=== PATIENT | female | born 1980 | race Caucasian/White ===

== ENCOUNTER 2018-01-18 17:16 | Emergency (ER) | payer MEDICAID, SELFPAY ==
[2018-01-18 17:17] VITALS: BP 170/110; PULSE 90; RESP 16; TEMP 36.1; O2SAT 96; BMI 29.6
[2018-01-18 18:00] LABS: Color, Urine Yellow (Yellow); Glucose, Dipstick Normal (Normal); Ketone-Dipstick Negative (Negative); Leukocyte Esterase-Dipstick 100 /ul (Negative); Nitrite-Dipstick Negative (Negative); Occult Blood-Urine 250 /ul (Negative); Protein-Dipstick 15 mg/dl (Negative); Urine Bilirubin Dipstick Negative (Negative); Urine Clarity Clear (Clear); Urine Urobilinogen 1 mg/dl (Normal); Urine pH 6.5 (5.0 - 8.0)
[2018-01-18 18:03] LABS: Internal QC Validated? YES +Cl - CLEAR BKGD; Pregnancy, Urine Negative Negative
--- NOTE | 2018-01-18 18:06 | ED.VISSUMM ---
- ER Visit Summary Date of Service: 01/18/18 Chief Complaint: Dysuria History of Present Illness: The patient is a 37 F presenting for evaluation secondary dysuria. Patient reports that since yesterday she has been having some issues with some suprapubic pain. She also endorses that she has had decreased appetite dizziness that she describes as a vertiginous type feeling fatigue. Patient denies that she has any sort of new vaginal discharge associated with this. Patient states that she did recently breakup with her boyfriend, and is worried that he may have given her something. She has no specific reason to suspect this other than she does not trust people. She denies any vaginal discharge or history of STI's. She denies any new sexual partners. She denies any visual changes numbness weakness or speech difficulty. Review of systems otherwise negative. Physical Examination: Vital signs are within normal limits, patient is afebrile. General: Patient is well-nourished well-developed and in no acute distress. Head: Normocephalic, atraumatic Eyes: Pupils equal round and reactive bilaterally, extra occular motion intact bialterally ENT: Moist mucous membranes Neck: Supple, no lymphadenopathy, no JVD, no meningismus CVS: Heart regular rate and rhythm, no murmurs, rubs or gallops, radial pulses 2+ bilaterally Resp: Respirations nondistressed, lung sounds clear bilaterally Abdomen: Soft, nontender, nondistended, no palpable masses, normal bowel sounds Back: Nontender Extremities: Nontender, atraumatic, active full range of motion, no peripheral edema Skin: warm, no rashes, no petechia Neuro: Alert and oriented x 4, CN 2-12 intact, no lateralizing neurological defecits, normal cerebellar testing Psyc: Normal affect Test Results: HCG was negative. Urinalysis shows evidence of rare bacteria and 5-10 reds Emergency Department Course and Treatment: Patient presented for evaluation secondary to dysuria. Patient's urinalysis shows may be a mild urinary tract infection, but given how symptomatic the patient is I will treat her with a short course of Macrobid. As far as the patient's dizziness is concerned this seems like peripheral vertigo patient will be treated with a course of meclizine she will follow-up with primary care. Disposition: Discharge Impression: 1. UTI 2. Peripheral vertigo 3. Hypertension This note was generated with [employer] dictation software. It may contain incorrect words, spelling, and punctuation that were not noted in review of the chart prior to signing ED Disposition - Plan for ED Patient: Disposition: Home or Assisted Living Chief Complaint: Cold Sx Diagnosis: UTI (urinary tract infection) Instructions: ED UTI Cystitis Female Prescriptions: Nitrofurantoin Macrocrystals [Macrobid] 100 mg PO Q12 #10 cap Meclizine HCl 25 mg PO TID #15 tab Referrals: Tari Bronson, PHONE MANAGER-C [Primary Care Provider] - 1 Week if not improving
[2018-01-18 18:09] LABS: White Blood Cells 0-5 SEEN /hpf (0-5)
[2018-01-18 18:11] LABS: Mucous, Urine 1+ /hpf (<or=2+); Red Blood Cells-Urine 5-10 SEEN /hpf (0-5); Squamous Epithelial Cells - UA 0-5 SEEN /hpf (5-10)
[2018-01-18 18:12] LABS: Bacteria RARE /hpf (None Seen)
[2018-01-18] MEDS: Nitrofurantoin Macrocrystals 100 MG Capsule PO (18:26)
[2018-01-18] MEDS: Meclizine HCl 25 MG Tablet PO (18:26)
== END 2018-01-18 18:28 | disposition home or self-care (01) ==
PROVIDERS: Emergency Provider Emergency Medicine; Family Provider Nurse Practitioner Family; PCP Nurse Practitioner Family
DX: N39.0 Urinary tract infection, site not specified (principal); H81.399 Other peripheral vertigo, unspecified ear; I10 Essential (primary) hypertension; E03.9 Hypothyroidism, unspecified; Z79.899 Other long term (current) drug therapy; Z72.0 Tobacco use
CPT/HCPCS: 81001; 81025; 99284

== ENCOUNTER 2018-03-21 15:55 | Emergency (ER) | payer MEDICAID, SELFPAY ==
[2018-03-21 15:55] VITALS: BP 164/106; PULSE 94; RESP 16; TEMP 36.7; O2SAT 100; BMI 28.2
--- NOTE | 2018-03-21 16:09 | ED.VISSUMM ---
- ER Visit Summary Date of Service: 03/21/18 Chief Complaint: Sore throat History of Present Illness: The patient is a 37 F who presents with a sore throat. Is been ongoing for 3 days. The pain in her throat is worse with swallowing. She has had a headache. She admits to chills but no fevers. She feels weak and tired. She has been clearing her throat a lot. She has been trying ibuprofen without any relief. Both of her kids were recently diagnosed with strep. Physical Examination: Vital signs are reviewed. HEENT exam shows tonsillar swelling with oropharyngeal erythema. I do not see any exudates. She has bilateral cervical lymphadenopathy. Heart is regular rate and rhythm. Lungs clear. Abdomen soft. Neurologic exam normal Test Results: None performed Emergency Department Course and Treatment: Patient will be treated for strep due to the sick contacts and the presence of tonsillar swelling and erythema. She will continue supportive care at home. Treatment Plan: [] Disposition: Discharge Impression: Pharyngitis This note was generated with [employer] dictation software. It may contain incorrect words, spelling, and punctuation that were not noted in review of the chart prior to signing ED Disposition - Plan for ED Patient: Chief Complaint: Sore Throat Referrals: Tari Bronson NP-C [Primary Care Provider] -
--- NOTE | 2018-03-21 16:11 | DCINST.ED_ITS ---
ED Disposition - Plan for ED Patient: Disposition: Home or Assisted Living Chief Complaint: Sore Throat Instructions: ED Strep Pharyngitis Conf Referrals: Tari Bronson, METAL CUT OFF SAW OPERATOR-C [Primary Care Provider] -
[2018-03-21] MEDS: Penicillin G Benzathine 1.2 MU/2 ML Syringe IM (16:16)
== END 2018-03-21 16:36 | disposition home or self-care (01) ==
LOC: ED 16:16
PROVIDERS: Emergency Provider Emergency Medicine; Family Provider Nurse Practitioner Family; PCP Nurse Practitioner Family
DX: J02.9 Acute pharyngitis, unspecified (principal); I10 Essential (primary) hypertension; Z72.0 Tobacco use
CPT/HCPCS: 96372; 99282

== ENCOUNTER 2018-03-26 17:54 | Emergency (ER) | payer SELFPAY ==
[2018-03-26 17:55] VITALS: BP 163/102; PULSE 113; RESP 14; TEMP 36.6; O2SAT 98; BMI 26.6
[2018-03-26] MEDS: 0.9% Normal Saline 1,000 ML 1000 ML IV (18:28)
[2018-03-26] MEDS: Ondansetron 4 MG/2 ML Vial IV (18:28)
[2018-03-26] MEDS: Dicyclomine 20 MG/2 ML Vial IM (18:28)
[2018-03-26 18:45] LABS: Absolute Lymphocyte Count 0.82 X10^3/ul (0.83-4.51); Absolute Neutrophil Count 3.2 X10^3/uL (2.0-7.7); Basophil# 0.01 X10^3/uL; Basophil% 0.2 % (0-1); Eosinophil# 0.04 X10^3/uL; Eosinophils% 0.9 % (0-5); Hematocrit 45.2 % (37-47); Lymphocyte # 0.82 X10^3/ul (4.0); Lymphocyte % 17.7 % (19-41); Mean Corp Hgb Conc 33.2 g/gl (32-36); Mean Corpuscular Hgb 29.9 pg (27.0-32.0); Mean Corpuscular Volume 90.2 fL (81-99); Mean Platelet Vol. 8.9 fl (6.2-12.0); Monocyte# 0.57 X10^3/uL; Monocyte% 12.3 % (0-10); Neutrophil # 3.18 X10^3/uL (2.7-7.7); Neutrophil % 68.7 % (47-70); POSITIVE COUNT NO; POSITIVE DIFFERENTIAL NO; POSITIVE MORPHOLOGY NO; Platelet Count 279 K/mm3 (150-450); RBC Distribution Width CV 12.9 % (11.6-14.6); RBC Distribution Width SD 42.4 fl (35.1-43.9); Red Blood Count 5.01 M/mm3 (4.2-5.4); White Blood Count 4.6 K/mm3 (4.4-11.0)
[2018-03-26 18:54] LABS: Anion Gap 8 (5-15); BUN 20 mg/dL (7-18); BUN/Creat Ratio 30.8 RATIO (10-20); Calcium,Total 8.6 mg/dL (8.5-10.1); Chloride 102 mmol/L (98-107); Creatinine, Serum 0.65 mg/dL (0.55-1.02); EST Glomerular Filtration Rate 108 mL/min (>60); Est Glom Filt Rate - Afr Amer 131 mL/min (>60); Estimated Creatinine Clearance 108.78 ml/min; Glucose 88 mg/dL (74-106); Potassium 3.5 mmol/L (3.5-5.1); Sodium Level 138 mmol/L (136-145)
--- NOTE | 2018-03-26 19:41 | ED.VISSUMM ---
- ER Visit Summary Date of Service: 03/26/18 Chief Complaint: [Abdominal pain and vomiting and diarrhea.] History of Present Illness: The patient is a 37 F [presents to the emergency department with multiple complaints. Patient was seen in the emergency department 3 days ago and diagnosed with strep throat clinically and was injected with Bicillin. Patient states that yesterday she started having nausea and vomiting which is currently now resolved. Patient still having watery stools and has had for 5 today. Patient also describes a patch on her left lateral thigh that is slightly tender and started a couple of days ago. Patient has had a fever at home up to 102. Patient states that her kids had vomiting and diarrhea 2 weeks ago. Patient states her throat feels significantly better. Her abdominal discomfort is diffuse and waxes and wanes in intensity.] Physical Examination: [HEENT-PERRLA, EOMI. Cranial nerves II through XII grossly intact. TMs clear. Mucous membranes moist. No adenopathy. Cardiovascular-regular rate and rhythm without murmur or ectopy Lungs-clear to auscultation, chest wall stable without crepitus or subcu emphysema Abdomen-normoactive bowel sounds, soft. Patient has some mild diffuse tenderness on palpation. There is no rebound, rigidity, or perineal signs. Skin exam-left lateral thigh there is a circular patch measuring approximately 2.5 cm in diameter with somewhat vesicular-like lesions within it. No evidence for cellulitis or abscess. Extremities-intact ?4, normal range of motion, normal pulses, atraumatic] Test Results: [CBC with differential is normal. Chemistries were normal.] Emergency Department Course and Treatment: [Patient was given a liter normal same fluid bolus as well as Zofran and Bentyl. Patient felt significantly improved after treatment.] Treatment Plan: [Patient will be given a prescription for Bentyl and Zofran. Patient advised to follow-up with her primary care physician within next 3-5 days. Patient also will be given a prescription for Famvir as I suspect she may be developing shingles to the left lateral thigh.] Disposition: [Discharged home in stable condition. Patient advised to return if increased vomiting, diarrhea, dehydration, worsening pain, or condition should worsen anyway.] Impression: [Viral gastroenteritis Dermatitis left thigh] This note was generated with [employer] software. It may contain incorrect words, spelling, and punctuation that were not noted in review of the chart prior to signing ED Disposition - Plan for ED Patient: Chief Complaint: Abd Pain Referrals: Tari Bronson, MEDICAL VIDEOGRAPHER-C [Primary Care Provider] -
--- NOTE | 2018-03-26 19:44 | ED.DEP ---
ED Disposition - Plan for ED Patient: Chief Complaint: Abd Pain Instructions: ED Gastroenteritis Viral, ED Shingles Prescriptions: Ondansetron [Zofran Odt] 4 mg PO Q8H PRN PRN #10 tab PRN Reason: Nausea Dicyclomine HCl [Bentyl] 20 mg PO TIDAC #20 cap Famciclovir [Famvir] 500 mg PO TID #15 tab Referrals: Tari Bronson, NUCLEAR WORKER TECHNICIAN-C [Primary Care Provider] -
== END 2018-03-26 20:16 | disposition home or self-care (01) ==
LOC: ED 18:34
PROVIDERS: Emergency Provider Emergency Medicine; Family Provider Nurse Practitioner Family; PCP Nurse Practitioner Family
DX: A08.4 Viral intestinal infection, unspecified (principal); L30.9 Dermatitis, unspecified; Z72.0 Tobacco use
CPT/HCPCS: 80048; 85025; 96361; 96372; 96374; 99283; A4216; J2405

== ENCOUNTER 2018-04-20 14:31 | Observation (INO) | payer SELFPAY ==
[2018-04-20] VITALS (9 sets, daily range): BP systolic 149–170; BP diastolic 91–108; PULSE 63–79; RESP 16–20; TEMP 36.3–36.8; O2SAT 97–99; BMI 32.5; BMI 32.6; BMI 32.1
--- NOTE | 2018-04-20 14:58 | EKG12_ITS ---
Test Reason : CP Blood Pressure : / mmHG Vent. Rate : 070 BPM Atrial Rate : 070 BPM P-R Int : 148 ms QRS Dur : 090 ms QT Int : 400 ms P-R-T Axes : 017 015 030 degrees QTc Int : 432 ms Normal sinus rhythm Normal ECG Confirmed by CHAKA MORAN, JACKIE ([id number]), movie editor ELIO QUINTERO ([id number]) on 04/23/2018 8:15:13 AM Referred By: OLENA/SERGE Confirmed By:JACKIE NULL MD
--- NOTE | 2018-04-20 14:58 | CT_ITS ---
STUDY: CT BRAIN WITHOUT CONTRAST REASON FOR EXAM: Female, 37 years old. Hypertension and numbness in the fingertips for 3 to 4 weeks RADIATION DOSAGE (If Supplied By Facility): CTDIvol = ( 44.99 ) mGy, DLP = ( 745.49 ) mGycm TECHNIQUE: Transaxial CT imaging of the brain was performed without administration of intravenous contrast material. Individualized dose optimization techniques were used for this CT. COMPARISON: None. FINDINGS: Normal soft tissue structures. Normal calvarium. Remote deformity of the right lamina papyracea. Normal size ventricles and extra-axial spaces for the patient's age. Normal white matter tracts of the cerebral hemispheres. Normal basal ganglia and thalami. Normal brainstem. Normal cerebellum. There is no intracranial hemorrhage. There are no findings of an acute ischemic infarction. Normal visualized paranasal sinuses. CT/Brain/Head without Contrast IMPRESSION: No evidence of infarct or hemorrhage. Electronically Signed: Federico Mccoy MD at 16:05 EST Tel , Service support ,
[2018-04-20] MEDS: Lisinopril 5 MG Tablet PO (15:30)
[2018-04-20 15:31] LABS: Absolute Lymphocyte Count 2.03 X10^3/ul (0.83-4.51); Absolute Neutrophil Count 4.5 X10^3/uL (2.0-7.7); Basophil# 0.04 X10^3/uL; Basophil% 0.6 % (0-1); Eosinophils% 2.8 % (0-5); Hematocrit 42.5 % (37-47); Hemoglobin 13.9 g/dl (12.0-15.0); Lymphocyte # 2.03 X10^3/ul (4.0); Lymphocyte % 28.1 % (19-41); Mean Corp Hgb Conc 32.7 g/gl (32-36); Mean Corpuscular Hgb 30.2 pg (27.0-32.0); Mean Corpuscular Volume 92.2 fL (81-99); Mean Platelet Vol. 9.2 fl (6.2-12.0); Monocyte# 0.45 X10^3/uL; Monocyte% 6.2 % (0-10); Neutrophil % 62.2 % (47-70); Platelet Count 298 K/mm3 (150-450); RBC Distribution Width CV 13.4 % (11.6-14.6); RBC Distribution Width SD 44.5 fl (35.1-43.9); Red Blood Count 4.61 M/mm3 (4.2-5.4); White Blood Count 7.2 K/mm3 (4.4-11.0)
[2018-04-20 15:34] LABS: POSITIVE COUNT NO; POSITIVE DIFFERENTIAL NO; POSITIVE MORPHOLOGY NO
[2018-04-20 15:45] LABS: Anion Gap 7 (5-15); BUN 20 mg/dL (7-18); BUN/Creat Ratio 30.9 RATIO (10-20); Calcium,Total 8.3 mg/dL (8.5-10.1); Chloride 107 mmol/L (98-107); Creatinine, Serum 0.65 mg/dL (0.55-1.02); EST Glomerular Filtration Rate 108 mL/min (>60); Est Glom Filt Rate - Afr Amer 131 mL/min (>60); Estimated Creatinine Clearance 108.78 ml/min; Glucose 66 mg/dL (74-106); Potassium 3.7 mmol/L (3.5-5.1); Sodium Level 143 mmol/L (136-145)
--- NOTE | 2018-04-20 15:48 | ED.DCSUM_ITS ---
- ER Visit Summary Date of Service: 04/20/18 Chief Complaint: Hypertension History of Present Illness: The patient is a 37 F presenting with hypertension. The patient states that she is supposed to be on antihypertensive medications. She has been off of them for the last 6 months. She states that in the last 3-4 weeks she has had numbness in her left hand. Today she had an onset of right hand numbness today. She reports that her BP read high today so she came in. She has had 3 weeks of intermittent headaches. She also endorses palpitations and nausea associated with this. Physical Examination: Vital signs are within normal limits, patient is afebrile. General: Patient is well-nourished well-developed and in no acute distress. Head: Normocephalic, atraumatic Eyes: Pupils equal round and reactive bilaterally, extra occular motion intact bialterally ENT: Moist mucous membranes Neck: Supple, no lymphadenopathy, no JVD, no meningismus CVS: Heart regular rate and rhythm, no murmurs, rubs or gallops, radial pulses 2+ bilaterally Resp: Respirations nondistressed, lung sounds clear bilaterally Abdomen: Soft, nontender, nondistended, no palpable masses, normal bowel sounds Back: Nontender Extremities: Nontender, atraumatic, active full range of motion, no peripheral edema Skin: warm, no rashes, no petechia Neuro: Alert and oriented x 4, CN 2-12 intact, dysesthesia of the left thigh and bilateral hands. No weakness Psyc: Normal affect Test Results: ekg shows sinus rhythm of 70, isoelectric st segments, normal twaves. CBC chemistry are unremarkable. Troponin found to be elevated to an indeterminate level 0.07. CT brain negative. Emergency Department Course and Treatment: Patient presented secondary to hypertension. Patient was having symptoms associated with this including numbness as well as nausea and palpitations and headaches. There was some concern for the possibility of hypertensive urgency or endorgan damage so workup was obtained. Workup ended up showing the patient to have an elevated troponin. Patient was given aspirin as well as lisinopril. Repeat blood pressure was in the 140s. I believe the patient requires admission at this time. I will discussed this with the hospitalist. Disposition: Admission Impression: 1. Hypertensive emergency 2. Elevated troponin 3. Lateral femoral cutaneous nerve syndrome This note was generated with [employer] software. It may contain incorrect words, spelling, and punctuation that were not noted in review of the chart prior to signing ED Disposition - Plan for ED Patient: Chief Complaint: Hypertension Referrals: Tari Bronson NP-C [Primary Care Provider] -
[2018-04-20 16:08] LABS: Pregnancy, Serum, hCG Quali. NEGATIVE Negative (0-9 Nonpreg)
[2018-04-20] MEDS: Aspirin 325 MG Tablet PO (16:27)
--- NOTE | 2018-04-20 16:40 | PCM.HP.STD ---
Problem List (1) Hypertensive emergency Status: Acute (2) Hypertension Status: Chronic (3) Tobacco abuse Status: Chronic (4) Hypothyroidism Status: Chronic History of Present Illness Date of Admission: 04/20/18 Chief Complaint: Elevated blood pressure, hand numbness and tingling, headache. The patient is a 37 year old F with past medical history as mentioned above presented to the emergency room because of uncontrolled hypertension, headache and numbness and tingling of the both hands. This patient had a history of hypertension and she is supposed to be on lisinopril but she has been noncompliant and not taking her medication for the last 5-6 months. She mentioned that she has been having issues with elevated blood pressure at home. Over the last several days, she did not feel well, started having left hand numbness and tingling in the last 3-4 weeks, intermittent, associated with intermittent throbbing headache, palpitation and today, she started having numbness on the right hand as well. She checked her blood pressure today and her machine just read high and she decided to come to the hospital. She reported occasional chest discomfort and shortness of breath. She denies syncope or presyncope. She denied focal arm or leg weakness. She denied slurred speech but she reported occasional blurry vision. In the emergency department, she was afebrile, heart rate was stable, blood pressure was 170/108 and pulse ox was normal on room air. Her routine blood work was unremarkable. EKG revealed normal sinus rhythm, normal QRS, normal QTC and no evidence of acute ischemic changes. Troponin was indeterminate at 0.071. Serum test was negative. CT scan brain without contrast showed no acute findings. She is being admitted for acute hypertensive emergency based on elevated blood pressure and evidence of endorgan damage which is the slightly elevated troponin. Past Medical History Past Medical History (Chronic Problems): Chronic Problems Hypertension (Chronic) Tobacco abuse (Chronic) Hypothyroidism (Chronic) Allergies codeine Adverse Reaction (Verified 04/20/18 14:56) Other lorazepam [From Ativan] Adverse Reaction (Verified 04/20/18 14:56) Other Home Medications: Ambulatory Orders Medication Instructions Recorded Ibuprofen 800 mg PO PRN PRN 04/20/18 Surgical History: cholecystectomy, - - Cervical discectomy, section. 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 Denies: Double vision, Drainage, Redness HEENT: Reports: Head Aches. Denies: Difficulty Hearing, Ear Pain, Eye Pain, Nasal bleeding, Nasal Congestion, Sore Throat Cardiovascular: Reports: Light Headedness, Palpitations. Denies: Chest Pain, Chest Pressure, Chest Tightness, Orthopnea, Syncope Respiratory: Reports: Shortness of Breath. Denies: Cough, Pleuritic Pain, Sputum production, Wheezing Gastrointestinal: Denies: Abdominal Pain, Constipation, Diarrhea, Nausea, Vomiting Genitourinary: Denies: Dysuria, Frequency, Hematuria Musculoskeletal: Denies: Arm Pain, Back Pain, Foot Pain Skin: Denies: Dryness, Rash Neurological: Reports: Headaches, Numbness, Tingling. Denies: Balance problems, Double vision, Change in Speech, Slurred speech, Focal weakness, Incoordination Psychiatric: Reports: Anxiety. Denies: Depression Endocrine: Denies: Change in Body Habitus, Polydipsia VTE Information - Inpt Only VTE Present on Admission: No VTE Mechan Device Prophylaxis: None VTE Pharm Prophylaxis ordered?: No Patient Problems: Active and Suspected Problems Hypertensive emergency (Acute) - Physical Exam General: Alert, Oriented x3, Cooperative, No apparent distress HEENT: Atraumatic, PERRLA, EOMI, Normocephalic Oral: Moist Mucosa, No Gingival or Mucosal Lesions/ Ulcerations Neck: Supple, No JVD, Negative Carotid Bruits, Trachea Midline, Thyroid Normal Size and Texture Lungs: Clear to auscultation, Normal air movement, No rhonchi, No wheeze, No rales Cardiovascular: Regular rate, Regular Rhythm, Normal S1, Normal S2, PMI Normal Abdomen: Bowel Sounds Present, Soft, Non Tender, Non-Distended, No Hepato-splenomegaly, Obese Extremities: No clubbing, No cyanosis, No edema Skin: No rashes, No breakdown Lymphatic: No Cervical, Supraclavicular, or Inguinal Adenopathy Neurological: Cranial nerves II-XII grossly intact, Motor Exam 5/5 strength throughout Psych/Mental Status: Normal Affect, Appropriate, Alert and oriented to time, place, person, mood and affect Vital Signs Temp Pulse Resp BP 97.3 F L 77 20 H 170/108 H 04/20/18 14:32 04/20/18 14:32 04/20/18 16:39 04/20/18 14:32 Weight: 201 lb 11.567 oz Body Mass Index (BMI) 32.5 Finger Stick Blood Glucose 107 Laboratory Tests Past 24 Hrs 04/20/18 04/20/18 04/20/18 15:10 15:10 15:10 WBC 7.2 RBC 4.61 Hgb 13.9 Hct 42.5 MCV 92.2 MCH 30.2 MCHC 32.7 RDW 13.4 RDW Differential 44.5 H Plt Count 298 MPV 9.2 Immature Gran % (Auto) 0.100 Neut % (Auto) 62.2 Lymph % (Auto) 28.1 [place] % (Auto) 6.2 Eos % (Auto) 2.8 Baso % (Auto) 0.6 Absolute Neuts (auto) 4.5 Absolute Lymphs (auto) 2.03 Total Counted Not Reportable Sodium 143 Potassium 3.7 Chloride 107 Carbon Dioxide 29.0 Anion Gap 7 BUN 20 H Creatinine 0.65 Estim Creat Clear Calc 108.78 Est GFR (MDRD) Af Amer 131 Est GFR (MDRD) Non-Af 108 BUN/Creatinine Ratio 30.9 H Glucose 66 L Calcium 8.3 L Troponin I 0.071 H Serum , Qual NEGATIVE Clinical Impression(s) from Imaging Studies Brain CT 04/20/18 14:58 IMPRESSION: No evidence of infarct or hemorrhage. Electronically Signed: Federico Mccoy MD at 16:05 EST Tel , Service support , Assessment/Plan All Active Problems Hypertensive emergency (Acute) This is a 37 years old female patient presented to the ED because of multiple complaints including left hand numbness followed by right hand numbness, headache, intermittent palpitation, intermittent chest discomfort and shortness of breath and she was found to have elevated blood pressure with indeterminate troponin and she is being admitted for evaluation and treatment. #1 hypertensive emergency: This is based on minimally elevated troponin although her systolic blood pressure was not more than 180. Patient has been having issues with uncontrolled hypertension, noncompliant for the last 6 months as she supposed to take lisinopril. Her EKG revealed sinus rhythm without evidence of acute ischemic changes. Chest x-ray showed no acute findings. She has no focal deficit on physical exam. CT scan brain showed no acute findings. Plan: Admit to PCU for observation, cardiac monitoring, serial cardiac enzymes, 2D echocardiogram, start baby aspirin, fasting lipid profile, repeat CBC and CMP tomorrow morning, start HCTZ/lisinopril daily, IV hydralazine as needed. #2 uncontrolled hypertension: Patient has not been taking her medication for the last 6 months. She is supposed to be on lisinopril. Plan as above. #3 hypothyroidism: This is listed on her chart, patient is not taking any medication for it. Plan: We will check TSH. #4 tobacco abuse: NicoDerm patch. #5 DVT prophylaxis: Low-risk patient, no prophylaxis indicated, ambulate. This note was generated with [employer] dictation software. It may contain incorrect words, spelling, and punctuation that were not noted in checking the note before signing. Code Visit OBSV E&M: 20938 Initial observation care L3
--- NOTE | 2018-04-20 16:46 | HP.PCM_ITS ---
Problem List (1) Hypertensive emergency Status: Acute (2) Hypertension Status: Chronic (3) Tobacco abuse Status: Chronic (4) Hypothyroidism Status: Chronic History of Present Illness Date of Admission: 04/20/18 Chief Complaint: Elevated blood pressure, hand numbness and tingling, headache. The patient is a 37 year old F with past medical history as mentioned above presented to the emergency room because of uncontrolled hypertension, headache and numbness and tingling of the both hands. This patient had a history of hypertension and she is supposed to be on lisinopril but she has been noncompliant and not taking her medication for the last 5-6 months. She mentioned that she has been having issues with elevated blood pressure at home. Over the last several days, she did not feel well, started having left hand numbness and tingling in the last 3-4 weeks, intermittent, associated with intermittent throbbing headache, palpitation and today, she started having numbness on the right hand as well. She checked her blood pressure today and her machine just read high and she decided to come to the hospital. She report ed occasional chest discomfort and shortness of breath. She denies syncope or presyncope. She denied focal arm or leg weakness. She denied slurred speech but she reported occasional blurry vision. In the emergency department, she was afebrile, heart rate was stable, blood pressure was 170/108 and pulse ox was normal on room air. Her routine blood work was unremarkable. EKG revealed normal sinus rhythm, normal QRS, normal QTC and no evidence of acute ischemic changes. Troponin was indeterminate at 0.071. Serum test was negative. CT scan brain without contrast showed no acute findings. She is being admitted for acute hypertensive emergency based on elevated blood pressure and evidence of endorgan damage which is the slightly elevated troponin. Past Medical History Past Medical History (Chronic Problems): Chronic Problems Hypertension (Chronic) Tobacco abuse (Chronic) Hypothyroidism (Chronic) Allergies codeine Adverse Reaction (Verified 04/20/18 14:56) Other lorazepam [From Ativan] Adverse Reaction (Verified 04/20/18 14:56) Other Home Medications: Ambulatory Orders Medication Instructions Recorded Ibuprofen 800 mg PO PRN PRN 04/20/18 Surgical History: cholecystectomy, - - Cervical discectomy, section. 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 Denies: Double vision, Drainage, Redness HEENT: Reports: Head Aches. Denies: Difficulty Hearing, Ear Pain, Eye Pain, Nasal bleeding, Nasal Congestion, Sore Throat Cardiovascular: Reports: Light Headedness, Palpitations. Denies: Chest Pain, Chest Pressure, Chest Tightness, Orthopnea, Syncope Respiratory: Reports: Shortness of Breath. Denies: Cough, Pleuritic Pain, Sputum production, Wheezing Gastrointestinal: Denies: Abdominal Pain, Constipation, Diarrhea, Nausea, Vomiting Genitourinary: Denies: Dysuria, Frequency, Hematuria Musculoskeletal: Denies: Arm Pain, Back Pain, Foot Pain Skin: Denies: Dryness, Rash Neurological: Reports: Headaches, Numbness, Tingling. Denies: Balance problems, Double vision, Change in Speech, Slurred speech, Focal weakness, Incoordination Psychiatric: Reports: Anxiety. Denies: Depression Endocrine: Denies: Change in Body Habitus, Polydipsia VTE Information - Inpt Only VTE Present on Admission: No VTE Mechan Device Prophylaxis: None VTE Pharm Prophylaxis ordered?: No Patient Problems: Active and Suspected Problems Hypertensive emergency (Acute) - Physical Exam General: Alert, Oriented x3, Cooperative, No apparent distress HEENT: Atraumatic, PERRLA, EOMI, Normocephalic Oral: Moist Mucosa, No Gingival or Mucosal Lesions/ Ulcerations Neck: Supple, No JVD, Negative Carotid Bruits, Trachea Midline, Thyroid Normal Size and Texture Lungs: Clear to auscultation, Normal air movement, No rhonchi, No wheeze, No rales Cardiovascular: Regular rate, Regular Rhythm, Normal S1, Normal S2, PMI Normal Abdomen: Bowel Sounds Present, Soft, Non Tender, Non-Distended, No Hepato- splenomegaly, Obese Extremities: No clubbing, No cyanosis, No edema Skin: No rashes, No breakdown Lymphatic: No Cervical, Supraclavicular, or Inguinal Adenopathy Neurological: Cranial nerves II-XII grossly intact, Motor Exam 5/5 strength throughout Psych/Mental Status: Normal Affect, Appropriate, Alert and oriented to time, place, person, mood and affect Vital Signs Temp Pulse Resp BP 97.3 F L 77 20 H 170/108 H 04/20/18 14:32 04/20/18 14:32 04/20/18 16:39 04/20/18 14:32 Weight: 201 lb 11.567 oz Body Mass Index (BMI) 32.5 Finger Stick Blood Glucose 107 Laboratory Tests Past 24 Hrs 04/20/18 04/20/18 04/20/18 15:10 15:10 15:10 WBC 7.2 RBC 4.61 Hgb 13.9 Hct 42.5 MCV 92.2 MCH 30.2 MCHC 32.7 RDW 13.4 RDW Differential 44.5 H Plt Count 298 MPV 9.2 Immature Gran % (Auto) 0.100 Neut % (Auto) 62.2 Lymph % (Auto) 28.1 Mineral % (Auto) 6.2 Eos % (Auto) 2.8 Baso % (Auto) 0.6 Absolute Neuts (auto) 4.5 Absolute Lymphs (auto) 2.03 Total Counted Not Reportable Sodium 143 Potassium 3.7 Chloride 107 Carbon Dioxide 29.0 Anion Gap 7 BUN 20 H Creatinine 0.65 Estim Creat Clear Calc 108.78 Est GFR (MDRD) Af Amer 131 Est GFR (MDRD) Non-Af 108 BUN/Creatinine Ratio 30.9 H Glucose 66 L Calcium 8.3 L Troponin I 0.071 H Serum , Qual NEGATIVE Clinical Impression(s) from Imaging Studies Brain CT 04/20/18 14:58 IMPRESSION: No evidence of infarct or hemorrhage. Electronically Signed: Federico Mccoy MD at 16:05 EST Tel , Service support , Assessment/Plan All Active Problems Hypertensive emergency (Acute) This is a 37 years old female patient presented to the ED because of multiple complaints including left hand numbness followed by right hand numbness, headache, intermittent palpitation, intermittent chest discomfort and shortness of breath and she was found to have elevated blood pressure with indeterminate troponin and she is being admitted for evaluation and treatment. #1 hypertensive emergency: This is based on minimally elevated troponin although her systolic blood pressure was not more than 180. Patient has been having issues with uncontrolled hypertension, noncompliant for the last 6 months as she supposed to take lisinopril. Her EKG revealed sinus rhythm without evidence of acute ischemic changes. Chest x-ray showed no acute findings. She has no focal deficit on physical exam. CT scan brain showed no acute findings. Plan: Admit to PCU for observation, cardiac monitoring, serial cardiac enzymes, 2D echocardiogram, start baby aspirin, fasting lipid profile, repeat CBC and CMP tomorrow morning, start HCTZ/lisinopril daily, IV hydralazine as needed. #2 uncontrolled hypertension: Patient has not been taking her medication for the last 6 months. She is supposed to be on lisinopril. Plan as above. #3 hypothyroidism: This is listed on her chart, patient is not taking any me dication for it. Plan: We will check TSH. #4 tobacco abuse: NicoDerm patch. #5 DVT prophylaxis: Low-risk patient, no prophylaxis indicated, ambulate. This note was generated with [employer] dictation software. It may contain incorrect words, spelling, and punctuation that were not noted in checking the note before signing. Code Visit OBSV E&M: 88869 Initial observation care L3
[2018-04-20] MEDS: 0.9% Normal Saline 1,000 ML 75 ML IV (18:05)
[2018-04-20] MEDS: 0.9% NaCl Peripheral Flush Adult/Peds IV (18:05)
[2018-04-20 18:51] LABS: Thyroid Stim Hormone (TSH) 3.35 uIU/mL (0.358-3.74)
[2018-04-21] VITALS (8 sets, daily range): BP systolic 136–160; BP diastolic 87–114; PULSE 62–84; RESP 14–16; TEMP 36.3–36.8; O2SAT 96–99
[2018-04-21 05:54] LABS: Hematocrit 38.9 % (37-47); Hemoglobin 12.9 g/dl (12.0-15.0); Mean Corp Hgb Conc 33.2 g/gl (32-36); Mean Corpuscular Hgb 30.4 pg (27.0-32.0); Mean Corpuscular Volume 91.7 fL (81-99); Mean Platelet Vol. 9.2 fl (6.2-12.0); Platelet Count 286 K/mm3 (150-450); RBC Distribution Width SD 42.3 fl (35.1-43.9); Red Blood Count 4.24 M/mm3 (4.2-5.4); Scan Indicated on CBC? Y/N NO; White Blood Count 6.5 K/mm3 (4.4-11.0)
--- NOTE | 2018-04-21 05:55 | EKG12_ITS ---
Test Reason : AM Blood Pressure : / mmHG Vent. Rate : 069 BPM Atrial Rate : 069 BPM P-R Int : 158 ms QRS Dur : 082 ms QT Int : 424 ms P-R-T Axes : 027 044 050 degrees QTc Int : 454 ms Normal sinus rhythm Septal infarct , age undetermined Abnormal ECG Confirmed by CHAKA MORAN, JACKIE ([id number]), material expeditor ELIO QUINTERO ([id number]) on 04/23/2018 8:30:02 AM Referred By: Confirmed By:JACKIE NULL MD
[2018-04-21 06:15] LABS: AST(SGOT) 14 U/L (15-37); Alanine Aminotransfer ALT/SGPT 16 U/L (13-56); Albumin, Serum 2.9 g/dL (3.2-5.0); Alkaline Phosphatase 45 U/L (45-117); Anion Gap 7 (5-15); BUN 18 mg/dL (7-18); BUN/Creat Ratio 36.4 RATIO (10-20); Chloride 107 mmol/L (98-107); Cholesterol 124 mg/dL (200); Creatinine, Serum 0.49 mg/dL (0.55-1.02); EST Glomerular Filtration Rate 148 mL/min (>60); Est Glom Filt Rate - Afr Amer 179 mL/min (>60); Glucose 87 mg/dL (74-106); High Density Lipoprotein 42 mg/dL; Potassium 3.4 mmol/L (3.5-5.1); Protein, Total 5.9 g/dL (6.4-8.2); Sodium Level 143 mmol/L (136-145); Triglycerides 110 mg/dL; Very Low Density Lipoprotein 22 mg/dL (5-40)
--- NOTE | 2018-04-21 08:27 | STE_ITS ---
Reason For Study: HTN, CHEST PAIN Stress Results Protocol: Samir Protocol Maximum Predicted HR: 181 bpm Target HR: 154 bpm % Maximum Predicted HR: 94 % DurationHeart Rate Stage (mm:ss) (bpm) BP Comment BASELINE 74 140/106 STAGE 1 3:00 114 164/100SLIGHTLY LIGHTHEADED STAGE 2 3:00 136 190/102 STAGE 3 2:10 171 230/112INCREASED SOB, INCREASED LIGHTHEADED RECOVERY 83 152/104 Stress Duration: 8:10 mm:ss Maximum Stress HR: 171 bpm METS: 9 Baseline Echocardiogram Findings Stress Echo Wall motion Data Resting WM Intermediate WM Stress WM Resting Wall Motion Wall Motion Stress All segments Normal. All segments Hyperkinetic. Ejection Fraction 55 %. Ejection Fraction 70 %. Stress Results Heart rate response: appropriate Blood pressure response: resting hypertension - exaggerated response Arrhythmias: none Functional capacity: good Stopped secondary to: dyspnea. EKG Data Baseline EKG: Normal sinus rhythm. Peak exercise ECG: No obvious ECG changes. Symptoms with Stress No complaint of chest discomfort during exercise or recovery. Interpretation Summary Negative (adequate (stress echocardiogram Negative (OTC) ECG exercise tolerance test Comment: Blood pressure response: Resting hypertension-exaggerated response Ordering Physician: Gerald Cano Performed By: Riky Kelly RCS
[2018-04-21 08:45] LABS: Magnesium 1.9 mg/dL (1.6-2.6)
[2018-04-21] MEDS: Aspirin 81 MG TAB.CHEW PO (09:53)
[2018-04-21] MEDS: Lisinopril 20 MG Tablet PO (09:54)
[2018-04-21] MEDS: hydroCHLOROthiazide 12.5mg 12.5 MG PO (09:54)
--- NOTE | 2018-04-21 11:34 | PCM.DC ---
- Discharge Diagnoses Current Active Problems: Current Active and Chronic Problems Hypertensive emergency (Acute) Hypertension (Chronic) You will use the following diet at home:: Cardiac Your food should be the consistency of: Regular Your liquids should be the consistency of: Regular/Thin Discharge Activity: Return to Normal Activity Allergies/Adverse Reactions: Allergies codeine Adverse Reaction (Verified 04/20/18 14:56) Other lorazepam [From Ativan] Adverse Reaction (Verified 04/20/18 14:56) Other Medications to take at Discharge Aspirin [Aspirin, Baby] 81 mg PO DAILY@0800 tab.chew 04/21/18 Hydrochlorothiazide [Hctz] 25 mg PO DAILY #30 tab 04/21/18 Lisinopril [Zestril] 20 mg PO DAILY #30 tab 04/21/18 The following prescriptions were given: Hydrochlorothiazide [Hctz] 25 mg PO DAILY #30 tab Lisinopril [Zestril] 20 mg PO DAILY #30 tab Primary Care Physician: Tari Bronson NP-C [Primary Care Provider] - Please follow up with your Primary Care Physician in: 1-2 weeks Test Results: Test results from this visit will be discussed in further detail at your follow-up appointment, if applicable. Proposed Discharge Date: 04/21/18
--- NOTE | 2018-04-21 11:39 | DCINST_ITS ---
- Discharge Diagnoses Current Active Problems: Current Active and Chronic Problems Hypertensive emergency (Acute) Hypertension (Chronic) You will use the following diet at home:: Cardiac Your food should be the consistency of: Regular Your liquids should be the consistency of: Regular/Thin Discharge Activity: Return to Normal Activity Allergies/Adverse Reactions: Allergies codeine Adverse Reaction (Verified 04/20/18 14:56) Other lorazepam [From Ativan] Adverse Reaction (Verified 04/20/18 14:56) Other Medications to take at Discharge Aspirin [Aspirin, Baby] 81 mg PO DAILY@0800 tab.chew 04/21/18 Hydrochlorothiazide [Hctz] 25 mg PO DAILY #30 tab 04/21/18 Lisinopril [Zestril] 20 mg PO DAILY #30 tab 04/21/18 The following prescriptions were given: Hydrochlorothiazide [Hctz] 25 mg PO DAILY #30 tab Lisinopril [Zestril] 20 mg PO DAILY #30 tab Primary Care Physician: Tari Bronson NP-C [Primary Care Provider] - Please follow up with your Primary Care Physician in: 1-2 weeks Test Results: Test results from this visit will be discussed in further detail at your follow- up appointment, if applicable. Proposed Discharge Date: 04/21/18
--- NOTE | 2018-04-21 14:35 | PCM.DC.SUM ---
Discharge Date and Diagnosis Date of Admission: 04/20/18 Date of Discharge: 04/21/18 - Primary Discharge Diagnosis HTN emergency Indeterminate Troponin HTN Tobacco abuse Hypothyroidism Cervical disc disease Obesity - Secondary Discharge Diagnosis Chronic Problems Hypertension (Chronic) Tobacco abuse (Chronic) Hypothyroidism (Chronic) Hospital Course and Treatment Imaging Results: 04/21/18 08:27 Stress Test Echo w/o Contrast [ECHO] Routine Interpretation Summary Negative (adequate (stress echocardiogram Negative (OTC) ECG exercise tolerance test Comment: Blood pressure response: Resting hypertension-exaggerated response CT/Brain/Head without Contrast IMPRESSION: No evidence of infarct or hemorrhage. Operations: None Procedures: 2-D Echocardiogram, Stress test Summary of Care Provided: Hospital course: The patient is a 37 year old F with a past medical history of hypertension, hypothyroidism, obesity, tobacco abuse, cervical disc disease, who presented to the emergency room with chief complaints of paresthesias in her hands, elevated blood pressure, and headache. She had a history of hypertension and was supposed to be on lisinopril and hydrochlorothiazide but had discontinued it about 6 months prior. When I asked her why she said she just did not feel like it refilling her prescriptions. In the emergency room she was found to have significantly elevated blood pressure at 170/108 with a indeterminate troponin demonstrating hypertensive emergency. A CT of the brain was checked and was negative. Serum was negative. Her HCTZ and lisinopril were restarted. She was admitted to the PCU and placed on telemetry. Troponin was cycled and remained flat. EKG was negative. The following morning she underwent a stress echo which was negative. Results as above. TSH was checked and was negative. Blood pressures remained elevated and her hydrochlorothiazide was increased. Her headache had resolved. She was felt to be stable for discharge and was discharged home in stable condition. She will need follow-up with her PCP in 1-2 weeks. This patient was seen by Gerald Cano PA-C under the supervision of Doctor Jarrod. [] - Physical Exam General: Alert, Oriented x3, Cooperative HEENT: Atraumatic, PERRLA, EOMI, Normocephalic Neck: Supple, No JVD, Negative Carotid Bruits Lungs: Clear to auscultation, Normal air movement Cardiovascular: Regular rate, No murmurs Abdomen: Bowel Sounds Present, Soft, Non Tender, Obese Extremities: No edema, Capillary Refill Less than 3 Seconds Skin: No rashes, No breakdown Musculoskeletal: No Tenderness to Palpation of Joints or Extremities Neurological: Cranial nerves II-XII grossly intact Psych/Mental Status: Normal Affect, Appropriate, Alert and oriented to time, place, person, mood and affect Vital Signs Temp Pulse Resp BP Pulse Ox 97.9 F 62 14 149/93 H 96 04/21/18 13:23 04/21/18 13:23 04/21/18 13:23 04/21/18 13:23 04/21/18 13:23 Oxygen Delivery Method Room Air Weight: 199 lb 4.766 oz Body Mass Index (BMI) 32.1 Finger Stick Blood Glucose 107 Intake and Output for Last 24 Hours 04/19/18 04/20/18 04/21/18 23:59 23:59 23:59 Intake Total 912 / 912 1019 / 1019 Balance 912 / 912 1019 / 1019 Laboratory Tests Past 24 Hrs 04/20/18 04/20/18 04/20/18 15:10 15:10 15:10 WBC 7.2 RBC 4.61 Hgb 13.9 Hct 42.5 MCV 92.2 MCH 30.2 MCHC 32.7 RDW 13.4 RDW Differential 44.5 H Plt Count 298 MPV 9.2 Immature Gran % (Auto) 0.100 Neut % (Auto) 62.2 Lymph % (Auto) 28.1 Hendricks % (Auto) 6.2 Eos % (Auto) 2.8 Baso % (Auto) 0.6 Absolute Neuts (auto) 4.5 Absolute Lymphs (auto) 2.03 Total Counted Not Reportable Sodium 143 Potassium 3.7 Chloride 107 Carbon Dioxide 29.0 Anion Gap 7 BUN 20 H Creatinine 0.65 Estim Creat Clear Calc 108.78 Est GFR (MDRD) Af Amer 131 Est GFR (MDRD) Non-Af 108 BUN/Creatinine Ratio 30.9 H Glucose 66 L Calcium 8.3 L Magnesium Total Bilirubin AST ALT Alkaline Phosphatase Troponin I 0.071 H Total Protein Albumin Globulin Albumin/Globulin Ratio Triglycerides Cholesterol LDL Cholesterol VLDL Cholesterol HDL Cholesterol TSH Serum , Qual NEGATIVE 04/20/18 04/20/18 04/20/18 15:10 18:35 20:45 WBC RBC Hgb Hct MCV MCH MCHC RDW RDW Differential Plt Count MPV Immature Gran % (Auto) Neut % (Auto) Lymph % (Auto) Hendricks % (Auto) Eos % (Auto) Baso % (Auto) Absolute Neuts (auto) Absolute Lymphs (auto) Total Counted Sodium Potassium Chloride Carbon Dioxide Anion Gap BUN Creatinine Estim Creat Clear Calc Est GFR (MDRD) Af Amer Est GFR (MDRD) Non-Af BUN/Creatinine Ratio Glucose Calcium Magnesium Total Bilirubin AST ALT Alkaline Phosphatase Troponin I 0.061 H 0.065 H Total Protein Albumin Globulin Albumin/Globulin Ratio Triglycerides Cholesterol LDL Cholesterol VLDL Cholesterol HDL Cholesterol TSH 3.35 Serum , Qual 04/21/18 04/21/18 04/21/18 05:25 05:25 05:25 WBC 6.5 RBC 4.24 Hgb 12.9 Hct 38.9 MCV 91.7 MCH 30.4 MCHC 33.2 RDW 13.0 RDW Differential 42.3 Plt Count 286 MPV 9.2 Immature Gran % (Auto) Neut % (Auto) Lymph % (Auto) Hendricks % (Auto) Eos % (Auto) Baso % (Auto) Absolute Neuts (auto) Absolute Lymphs (auto) Total Counted Sodium 143 Potassium 3.4 L Chloride 107 Carbon Dioxide 29.0 Anion Gap 7 BUN 18 Creatinine 0.49 L Estim Creat Clear Calc 144.30 Est GFR (MDRD) Af Amer 179 Est GFR (MDRD) Non-Af 148 BUN/Creatinine Ratio 36.4 H Glucose 87 Calcium 8.0 L Magnesium 1.9 Total Bilirubin 0.60 AST 14 L ALT 16 Alkaline Phosphatase 45 Troponin I Total Protein 5.9 L Albumin 2.9 L Globulin 3.0 Albumin/Globulin Ratio 1.0 Triglycerides 110 Cholesterol 124 LDL Cholesterol 60 VLDL Cholesterol 22 HDL Cholesterol 42 TSH Serum , Qual Discharge Diet: Low fat/ Low Cholesterol, 2000 mg Sodium Diet Discharge Activity: Return to Normal Activity Home Medications: Medications to take at Discharge Aspirin [Aspirin, Baby] 81 mg PO DAILY@0800 tab.chew 04/21/18 Hydrochlorothiazide [Hctz] 25 mg PO DAILY #30 tab 04/21/18 Lisinopril [Zestril] 20 mg PO DAILY #30 tab 04/21/18 Following Prescrptions Were Given to Patient: Hydrochlorothiazide [Hctz] 25 mg PO DAILY #30 tab Lisinopril [Zestril] 20 mg PO DAILY #30 tab Primary Care Physician: Tari Bronson NP-C [Primary Care Provider] - Please follow up with your Primary Care Physician in: 1-2 weeks Disposition: Home Minutes spent on discharge:: 35 Patient Condition:: Stable Medical Necessity - Tobacco Use Smoking Status: Current every day smoker Tobacco Use: Cigarettes Meaningful Use Info Meaningful Use Diagnoses (Choose all that apply): None applicable
== END 2018-04-21 14:00 | disposition home or self-care (01) ==
LOC: ED 15:05 → PCU 16:29
PROVIDERS: Physician Assistant; Admitting Provider Hospitalist; Emergency Provider Emergency Medicine; Family Provider Nurse Practitioner Family; PCP Nurse Practitioner Family; Visit Provider Family Medicine
DX: I16.1 Hypertensive emergency (principal); I10 Essential (primary) hypertension; M50.10 Cervical disc disorder with radiculopathy, unspecified cervical region; E03.9 Hypothyroidism, unspecified; Z91.14 Patient's other noncompliance with medication regimen; F17.210 Nicotine dependence, cigarettes, uncomplicated; E66.9 Obesity, unspecified; Z68.32 Body mass index [BMI] 32.0-32.9, adult; Z71.3 Dietary counseling and surveillance; R42 Dizziness and giddiness; R07.9 Chest pain, unspecified
CPT/HCPCS: 36415; 70450; 80048; 80053; 80061; 83735; 84443; 84484; 84703; 85025; 85027; 93005; 93017; 93350; 96360; 96361; 97802; 99218; 99283; 99406; J7030; Q9957; A4216; G0378

== ENCOUNTER 2018-06-22 19:39 | Emergency (ER) | payer SELFPAY ==
[2018-06-22 19:39] VITALS: BP 158/117; PULSE 94; RESP 16; TEMP 37.1; O2SAT 96; BMI 30.8; BMI 32.5
--- NOTE | 2018-06-22 20:06 | ED.DCSUM_ITS ---
- ER Visit Summary Date of Service: 06/22/18 Chief Complaint: Nosebleed History of Present Illness: The patient is a 37 F presents to the emergency department intermittent nosebleeds. Patient states started about 3 days ago. She had about 10 days of upper respiratory illness. She had nasal congestion, sinus fullness, mild headache. She states that it started bleeding spontaneously. She states she was able to get to stop that and started again today. She has not on anticoagulants. She denies any other symptoms. Physical Examination: Vital signs reviewed General: Well-nourished, well-developed Head: Normocephalic, atraumatic Eyes: Pupils equal and reactive, extraocular muscles intact ENT: Patient does have swollen turbinates. There is some mild bleeding within the right naris. There is no visible vessel. There is no posterior bleed. Neck, supple, no lymphadenopathy Heart: Regular rate and rhythm Respiratory: No distress, clear bilaterally Abdomen: Soft, nontender, nondistended, no peritoneal signs Back: Nontender Extremities: Nontender, no edema, no cords Skin: Normal color no rash Neuro: Alert and oriented, no focal or lateralizing deficits Test Results: [] Emergency Department Course and Treatment: The patient has had upper respiratory symptoms and sinusitis. She now has a nosebleed. She is on anticoagulants. There is no significant active bleeding. I do not feel packing is necessary. Patient be placed on amoxicillin and Afrin nasal spray. She was counseled to hold pressure if he does rebleed. I do feel that she is safe for outpatient therapy. She will be discharged home. Treatment Plan: [] Disposition: Discharge Impression: 1. Sinusitis 2. Epistaxis This note was generated with [employer] dictation software. It may contain incorrect words, spelling, and punctuation that were not noted in review of the chart prior to signing ED Disposition - Plan for ED Patient: Instructions: Nosebleed Prescriptions: Amoxicillin 500 mg PO TID #30 tab Referrals: Tari Bronson NP-C [Primary Care Provider] -
--- NOTE | 2018-06-22 20:17 | NURSING ---
walked into pt room. pt left prior to meds and d/c instructions given
== END 2018-06-22 20:27 | disposition home or self-care (01) ==
LOC: ED 20:24
PROVIDERS: Emergency Provider Emergency Medicine; Family Provider Nurse Practitioner Family; PCP Nurse Practitioner Family
DX: J32.9 Chronic sinusitis, unspecified (principal); R04.0 Epistaxis; I10 Essential (primary) hypertension; Z72.0 Tobacco use
CPT/HCPCS: 99282

== ENCOUNTER 2019-05-14 16:09 | Emergency (ER) | payer SELFPAY ==
[2019-05-14 16:09] VITALS: BMI 30.8
[2019-05-14 16:10] VITALS: BP 189/116; PULSE 113; RESP 16; TEMP 36.6; O2SAT 98; BMI 38.2
[2019-05-14] MEDS: Lisinopril 20 MG Tablet PO (16:40)
--- NOTE | 2019-05-14 16:40 | RAD_ITS ---
STUDY: X-RAY CHEST REASON FOR EXAM: Female, 38 years old. COUGH, HEADACHE TECHNIQUE: PA and lateral views of the chest. COMPARISON: 02/14/2017 FINDINGS: Status post anterior cervical discectomy and fusion in the lower cervical spine. The lungs are clear and expanded. There is no demonstrated pleural abnormality. Normal size heart. Normal mediastinum and jamarcus. Normal visualized pulmonary arteries. Normal visualized aortic arch and descending thoracic aorta. Normal visualized thoracic spine. Normal visualized ribs, clavicles, and shoulders. There is no demonstrated abnormality of the visualized soft tissue structures of the upper abdomen. RAD/Chest PA and Lateral IMPRESSION: Normal x-ray examination of the chest. Electronically Signed: Louis Bowden MD at 16:52 EST Tel , Service support ,
[2019-05-14] MEDS: Acetaminophen 500 MG Tablet 1000 MG PO (16:49)
[2019-05-14] MEDS: predniSONE 20 MG Tablet 60 MG PO (16:49)
[2019-05-14 16:51] VITALS: BP 189/116; PULSE 113; RESP 16; TEMP 36.6; O2SAT 98
--- NOTE | 2019-05-14 17:00 | ED.VISSUMM ---
- ER Visit Summary Date of Service: 05/14/19 Chief Complaint: Cough History of Present Illness: The patient is a 38 F who goes to the [facility]. She reports she has a cough that began 2 days ago. Is productive green sputum. She had subjective fever, chills, but diffuse myalgias. Reports that she does have a history of asthma and smokes half pack per day. She has been wheezing. She reports she has moderate shortness of breath worsened mild currently. She does not have an inhaler that she is using. Physical Examination: Vitals: Stable. Afebrile. General: Well-nourished and well-developed. Head: Normocephalic atraumatic. Neck: Supple, no lymphadenopathy. No JVD. Nontender. Cardiovascular: Regular rate and rhythm. No murmurs. Respiratory: No respiratory distress. Clear to auscultation bilaterally. Abdominal: Soft, nontender, nondistended, normal bowel sounds. No guarding, rebound, or peritoneal signs. Back: Nontender. Extremities: Nontender, no edema. Skin: Normal color, no rash. Neurologic: Alert and oriented ?3. Cranial nerves II through XII are intact. Normal strength and sensation. Psych: Normal affect. Test Results: Chest x-ray is normal. Emergency Department Course and Treatment: Patient reports that she is actually out of her lisinopril and Synthroid. She is given her first dose of lisinopril here. She is also given prednisone and Tylenol p.o. She is resting comfortably. Treatment Plan: Patient will be discharged with a month supply of lisinopril and Synthroid. She also be placed on a 5-day burst of prednisone given a prescription for an albuterol MDI. Instructed to follow-up with the [facility] in 1 week if not improving. Return to the emergency department for any worsening symptoms. Disposition: To home in improved and stable condition. Impression: 1. Influenza. 2. Asthma. 3. Hypertension. This note was generated with [employer] software. It may contain incorrect words, spelling, and punctuation that were not noted in review of the chart prior to signing ED Disposition - Plan for ED Patient: Disposition: Home or Assisted Living Instructions: INFLUENZA (Adult) Prescriptions: Prednisone [Deltasone] 40 mg PO DAILY #10 tab Prescription Printed Lisinopril 20 mg PO DAILY #30 tab Prescription Printed Levothyroxine [Synthroid] 75 mcg PO DAILY #30 tab Prescription Printed Albuterol Inhaler [Ventolin Hfa] 2 puff INHALATION Q4H PRN PRN #1 inhaler PRN Reason: Wheezing Prescription Printed Referrals: Tari Bronson, HUMAN RESOURCES BENEFITS SPECIALIST-C [Primary Care Provider] - 1 Week if not improving
[2019-05-14 17:28] VITALS: BP 189/116; PULSE 113; RESP 16; TEMP 36.6; O2SAT 98
== END 2019-05-14 17:29 | disposition home or self-care (01) ==
LOC: ED 16:55
PROVIDERS: Emergency Provider Emergency Medicine; PCP Nurse Practitioner Family
DX: J11.1 Influenza due to unidentified influenza virus with other respiratory manifestations (principal); J45.909 Unspecified asthma, uncomplicated; I10 Essential (primary) hypertension; E03.9 Hypothyroidism, unspecified; F17.210 Nicotine dependence, cigarettes, uncomplicated
CPT/HCPCS: 71046; 99283

== ENCOUNTER → 2019-05-28 12:52 | Outpatient (CLI) | payer MEDICAID, SELFPAY ==
[2019-05-14 16:10] VITALS: BMI 38.2
--- NOTE | 2019-05-28 12:59 | BI_ITS ---
MAMMOGRAPHY - BILATERAL SCREENING REASON FOR EXAM: Female, 38 years old. Routine annual screening examination. PERTINENT HISTORY: Non-contributory. TECHNIQUE: Digital bilateral breast moisés (3D mammographic acquisition) in the CC and MLO projections. 2-D mediolateral oblique (MLO) and craniocaudad (CC) views of both breasts were obtained. Exaggerated craniocaudad views of the right breast were obtained as well. CAD: Full Field Digital Mammography with Computer Added Detection was performed. COMPARISON: None. Baseline examination. FINDINGS: Breast Composition: The breasts are heterogeneously dense, which may obscure small masses. There are no dominant masses or suspicious calcifications. Small benign-appearing bilateral axillary lymph nodes. No other significant abnormalities are identified. BI/SCREEN MAMM (CAD) W/MOISÉS BILAT IMPRESSION: Negative screening mammogram. Yearly followup mammogram recommended. (A) ASSESSMENT CATEGORY: BIRADS Category 2: Benign. A letter regarding these results will be sent to the patient by the facility within 30 days. Approximately 10% of breast cancers are not detected by mammography. A normal mammogram should not delay biopsy of a clinically suspicious abnormality. [id number] Electronically Signed: Chuck Topete, at 14:13 EST , Service support ,
== END ==
PROVIDERS: PCP Nurse Practitioner Family
DX: Z12.31 Encounter for screening mammogram for malignant neoplasm of breast (principal)
CPT/HCPCS: 77063; 77067

== ENCOUNTER → 2020-08-08 15:42 | Outpatient (CLI) | payer MEDICAID, SELFPAY ==
[2020-08-08 17:09] LABS: Absolute Lymphocyte Count 1.72 X10^3/uL (0.83-4.51); Absolute Neutrophil Count 5.6 X10^3/uL (2.0-7.7); Basophil# 0.07 X10^3/uL; Basophil% 0.8 % (0-1); Eosinophil# 0.19 X10^3/uL; Eosinophils% 2.3 % (0-5); Hematocrit 40.8 % (37-47); Hemoglobin 13.5 g/dL (12.0-15.0); Lymphocyte # 1.72 X10^3/ul (0.83-4.51); Lymphocyte % 20.7 % (19-41); Mean Corp Hgb Conc 33.1 g/dL (32-36); Mean Corpuscular Hgb 29.3 pg (27.0-32.0); Mean Corpuscular Volume 88.5 fL (81-99); Mean Platelet Vol. 9.4 fl (6.2-12.0); Monocyte# 0.68 X10^3/uL; Monocyte% 8.2 % (0-10); NRBC Flagged by Analyzer 0 % (0-5); Neutrophil % 67.6 % (47-70); Platelet Count 433 K/mm3 (150-450); RBC Distribution Width CV 12.5 % (11.6-14.6); RBC Distribution Width SD 40.7 fl (35.1-43.9); Red Blood Count 4.61 M/mm3 (4.2-5.4); White Blood Count 8.3 K/mm3 (4.4-11.0)
[2020-08-08 17:48] LABS: Vitamin D,25 Hydroxy 51.7 ng/mL
[2020-08-08 17:53] LABS: AST(SGOT) 13 U/L (15-37); Alanine Aminotransfer ALT/SGPT 20 U/L (13-56); Albumin, Serum 3.8 g/dL (3.2-5.0); Alkaline Phosphatase 59 U/L (45-117); Anion Gap 5 (5-15); BUN 22 mg/dL (7-18); BUN/Creat Ratio 19.5 RATIO (10-20); Calcium,Total 9.6 mg/dL (8.5-10.1); Chloride 105 mmol/L (98-107); Cholesterol 171 mg/dL (200); Creatinine, Serum 1.13 mg/dL (0.55-1.02); EST Glomerular Filtration Rate 56 mL/min (>60); Est Glom Filt Rate - Afr Amer 68 mL/min (>60); Globulin 3.8 g/dL (2.2-4.2); Glucose 93 mg/dL (74-106); High Density Lipoprotein 47 mg/dL; Potassium 3.8 mmol/L (3.5-5.1); Protein, Total 7.6 g/dL (6.4-8.2); Sodium Level 140 mmol/L (136-145); Thyroid Stim Hormone (TSH) 1.92 uIU/mL (0.358-3.74); Triglycerides 135 mg/dL; Very Low Density Lipoprotein 27 mg/dL (5-40)
== END ==
PROVIDERS: PCP Nurse Practitioner Adult Health; Referring Provider Nurse Practitioner Adult Health; Visit Provider Nurse Practitioner Adult Health
DX: F33.0 Major depressive disorder, recurrent, mild (principal)
CPT/HCPCS: 36415; 80053; 80061; 82306; 84443; 85025

== ENCOUNTER 2022-04-26 13:30 | Outpatient (RCR) | payer BC, MEDICAID, SELFPAY ==
--- NOTE | 2022-04-08 13:33 | HP.PTEVAL_ITS ---
Patient's Visit Information SILVIA TEJADA is a 41 year old F referred to Physical Therapy by Dr. Sami Ramos MD with a diagnosis of LEFT SHOULDER PAIN. Date of Evaluation: 04/08/22 Physical Therapist: Kishan Carter, PT, Cert MDT, OCS - Visit Plan Frequency: 2x /Week Duration: 4 Weeks Plan: PT INTRERVTIONS MODLATIES FOR PAIN ,PROGRESS TO GRADED SCAPULAR/RTC EX'S ,AND POSTURAL EX'S - Subjective This 41 y/o female presents to physical therapy with left shoulder pain. Patient injury occurred in August where a dog 75# pull left arm felt immediate pain and burning and a subluxation with pop. Patient tried to work .Cumulative overtime pain became worse. Then another incident pulling something caused increase pain and burning. Next day went ER before [facility] had x-rays showed mild/mod OA. Seen Dr. Ramos thought slap tear or RTC. Recommended MRI with arthrogram and PT. Patient aggravating lifting ,pulling ,OH , ADLS' and self hygiene such as combing hair. Alleviating factors rest. Patient pain affects sleeping. Patient c/o burning and numbness in fingers. Patient unable to RTW on light duty thus unable to work. Patient has difficulty to perform ADLS and RTW thus QOL. SOCIAL: SIGNANT OTHER. VOCACTION: [employer] - Pain Left Shoulder Pain Intensity (Out of 10): 6 Pain Intensity Range: 10 - Objective POSTURE: rounded shoulders head forward. NEURO: c/o paresthesia/tingling ,burning left fingers. PALPATION: tender global. AROM: 90 degrees flexion/abduction pain ,IR unable. PROM: flexion/abduction guarded painful 110 degrees ,ER 80 degrees. MMT:( peak force) infraspinatus 7.6 ,subscapularis 8.5 , supraspinatus 0 ,deltoid 0. - Special Tests L Shoulder Empty Can - SS: Positive L Shoulder Belly Press - SupScap: Negative L Shoulder Neer - Impingement: Positive L Shoulder Salazar Jonathan - Impingement: Positive L Shoulder O'Briens - SLAP/A-C: Positive Comments: difficulty to assess due to painful and guared - Balance/Special Test Scores Quick DASH Score: 72.5000 - Goals Goal 1:: Patient to be I with HEP Goal Time Frame: 4-6 Weeks Goal 2:: Patient to demonstrate 40% improvement with decrease symptoms and less pain Goal Time Frame: 4-6 Weeks Goal 3:: Patient to improve AROM shoulder flexion/abduction 125 degrees to improve ADL's Goal Time Frame: 4-6 Weeks Goal 4:: Patient to increase strength peak force by 5-10 to improve ADLs and self hygiene with OH activities. Goal Time Frame: 4-6 Weeks Goal 5:: Patient to improve quick dash 2-5 points to improve QOL and function Goal Time Frame: 4-6 Weeks - Rehabilitation Potential Physical Therapy Diagnosis: This patient injury to shoulder with possible slap tear ,RTC with + signs ,weakness ,pain with poor ROM thus benefit from PT and possble MRI Rehabilitation Potential: Good - Anticipated Interventions Patient/Client Instruction: Educate patient on: Condition, Plan of Care For the Purpose of:: To decrease pain, To increase ROM, To improve muscle performance and motor function, To improve ability to perform ADL's, To increase tolerance to activity/condition/position, To improve performance and independence with ADL's, To improve ability of physical actions for home/community/work/leisure, To improve health of tissue, To decrease soft tissue restriction, To improve tolerance to ADL's Therapeutic Exercise to Include: Strength training, Postural training, Passive ROM, Active ROM, Scapular Strength/Stabilization Comment: RTC For the Purpose of:: To decrease pain, To increase ROM, To improve muscle performance and motor function, To improve ability to perform ADL's, To increase tolerance to activity/condition/position, To improve gait and locomotor fun ctions, To improve tolerance to ADL's TENS: Yes IF ES: Yes Cryotherapy (ice pack, ice massage): Yes Thermo therapy (hot pack): Yes For the Purpose of:: To decrease pain, To increase ROM, To improve nutrient delivery to tissue, To increase oxygenation perfusion, To improve health of tissue, To decrease soft tissue restriction Thank you for the opportunity to evaluate your patient. For Medicare and Medicare HMO plans, please review the plan of care and approve it. It will need to be FAXED BACK to us at [phone] for Medicare purposes. For Medicare only, by signing this I certify the plan of care. Please let me know if there are questions or concerns regarding this plan of care. Physician Signature: Date:
--- NOTE | 2022-07-30 10:41 | HP.PT.NRP ---
SILVIA TEJADA was seen in my office for initial evaluation on 04/08/22. The following Plan of Care was established for this patient: Initial Frequency: 2x /Week Initial Duration: 4 Weeks Patient/Client Instruction: Educate patient on: Condition, Plan of Care For the Purpose of:: To decrease pain, To increase ROM, To improve muscle performance and motor function, To improve ability to perform ADL's, To increase tolerance to activity/condition/position, To improve performance and independence with ADL's, To improve ability of physical actions for home/community/work/leisure, To improve health of tissue, To decrease soft tissue restriction, To improve tolerance to ADL's Therapeutic Exercise to Include: Strength training, Postural training, Passive ROM, Active ROM, Scapular Strength/Stabilization For the Purpose of:: To decrease pain, To increase ROM, To improve muscle performance and motor function, To improve ability to perform ADL's, To increase tolerance to activity/condition/position, To improve gait and locomotor functions, To improve tolerance to ADL's TENS: Yes IF ES: Yes Cryotherapy (ice pack, ice massage): Yes Thermo therapy (hot pack): Yes For the Purpose of:: To decrease pain, To increase ROM, To improve nutrient delivery to tissue, To increase oxygenation perfusion, To improve health of tissue, To decrease soft tissue restriction This patient was last seen in our office . Pertinent comments regarding their Physical therapy will appear below: Patient seen for shoulder pain thus underwent s/p surgery for slap repair At this point I will be discontinuing this patient from physical therapy. I would be happy to see this patient again in the future if found appropriate by the physician. Thank you! Kishan Carter, PT, Cert MDT, OCS Balance/Gait/Functional tests - Balance/Special Test Scores Quick DASH Score: 72.5000
== END 2022-04-26 19:00 | disposition home or self-care (01) ==
LOC: PT 13:30
PROVIDERS: PCP Nurse Practitioner Adult Health; Referring Provider Orthopaedic Surgery Sports Medicine; Visit Provider Orthopaedic Surgery Sports Medicine
DX: M25.512 Pain in left shoulder (principal)
CPT/HCPCS: 97035; 97110; 97162

== ENCOUNTER → 2022-05-07 | Outpatient (CLI) | payer BC, MEDICAID, SELFPAY ==
--- NOTE | 2022-05-07 12:45 | RAD_ITS ---
CLINICAL HISTORY: Female, 41 years old. Left shoulder pain. PROCEDURE: ARTHROGRAM - LEFT SHOULDER CONSENT: The procedure as well as the benefits and possible complications including infection and bleeding were explained to the patient. Informed consent was obtained. FLUOROSCOPY TIME (if supplied): (42 seconds) minutes/seconds. Injection Information: 10 cc of dilute MRI contrast Number of images obtained: 5 TECHNIQUE: (All elements of maximal sterile barrier technique followed, including US elements as applicable) The overlying skin was prepped and draped in the usual sterile fashion. Following local anesthetic application and under direct fluoroscopic guidance, a 22-gauge spinal needle was placed into the shoulder joint. 2 cc of nonionic contrast was injected for confirmation. Following this, 10 cc of dilute MRI contrast was injected. The patient tolerated the procedure well RAD/Arthrogram Shoulder w/ MRI IMPRESSION: Successful left shoulder arthrogram for MRI examination. The patient tolerated the procedure well. Electronically Signed: Chuck Topete MD at 13:46 EST ,
[2022-05-07] MEDS: Lidocaine 2% (5ml sdv) 5 ML VIAL.MPF INFILT (13:07)
[2022-05-07] MEDS: Iopamidol 10 ML in Syringe 1 EACH 600 ML INTRAARTIC (13:07)
--- NOTE | 2022-05-07 13:45 | MRI_ITS ---
STUDY: MRI ARTHROGRAM LEFT SHOULDER WITH CONTRAST REASON FOR EXAM: Female, 41 years old. LEFT shoulder pain, slap lesion TECHNIQUE: Standardized fat and water weighted pulse sequences were obtained in all 3 orthogonal planes following the intra-articular administration of contrast. COMPARISON: None. FINDINGS: Normal supraspinatus tendon. Normal infraspinatus tendon. Normal subscapularis tendon. Normal teres minor tendon. Normal supraspinatus muscle. Normal infraspinatus muscle. Normal subscapularis muscle. Normal teres minor muscle. Normal glenohumeral articulation. Normal humeral head and visualized proximal humerus. Normal biceps labral complex. Normal intracapsular long biceps tendon. There is tear of the superior labrum adjacent to the biceps anchor, series 5 images 02/10 through . Normal capsulo- ligamentous complex. Normal rotator interval. There is mild osteoarthritis of the acromioclavicular articulation. There is a Type II morphology (curved) acromion, with a neutral orientation. There is no subacromial-subdeltoid bursal fluid. Normal visualized coracohumeral and coracoacromial ligaments. Normal quadrilateral space. Normal axillary space. Normal deltoid muscle. Normal trapezius muscle. MRI/Upper Ext Jt Only W/Contrast IMPRESSION: SLAP lesion with tear of the superior labrum. No rotator cuff tear. Electronically Signed: Damon Skinner MD at 22:52 EST ,
== END | disposition home or self-care (01) ==
LOC: RAD 12:39
PROVIDERS: Referring Provider Orthopaedic Surgery Sports Medicine; Visit Provider Orthopaedic Surgery Sports Medicine
DX: M25.512 Pain in left shoulder (principal)
CPT/HCPCS: 23350; 73222; 77002; Q9967

== ENCOUNTER 2022-07-10 09:24 | Day surgery (SDC) | payer BC, MEDICAID, SELFPAY ==
[2022-06-14 15:07] LABS: Thyroid Stim Hormone (TSH) 8.74 uIU/mL (0.358-3.74)
[2022-07-10] VITALS (8 sets, daily range): BP systolic 132–153; BP diastolic 79–102; PULSE 58–84; RESP 12–18; TEMP 36.1–36.6; O2SAT 91–100; BMI 31.3
[2022-07-10] MEDS: Lactated Ringers 1,000 ML 15 ML IV ×2 (10:07→13:14)
--- NOTE | 2022-07-10 11:04 | PCM.HP.STD ---
HPI - General HPI Narrative SILVIA TEJADA, is a 41 F who presents for left shoulder arthroscopy, subpectoral biceps tenodesis. No changes to history and physical exam. Left upper extremity marked. Risks alternatives benefits as well as postoperative recovery and follow-up instructions were given to the patient narcotic counseling. Patient wished to proceed. Plan is for preoperative block. Patient understands no further questions or concerns. R#: [id number] Acct: [id number] Name:? SILVIA TEJADA Rep #: [id number] : 1980 ? ? Provider: Dr. Sami Ramos MD Age/Sex:? 41/F ? ? Location: [facility] – [place] Status: Signed Intake Intake Visit Reasons:?LEFT SHOULDER Chief Complaint: Hypertension/Indeterminate Troponin Allergies codeine Adverse Reaction (Verified 05/09/22 13:51) Otherlorazepam [From Ativan] Adverse Reaction (Verified 05/09/22 13:51) Other Medications aspirin 81 mg chewable tablet 81 mg PO DAILY@0800 04/21/18 [Rx Confirmed 05/09/22] hydrochlorothiazide 25 mg tablet 25 mg PO DAILY #30 tabs 04/21/18 [Rx Confirmed 05/09/22] lisinopril 20 mg tablet 20 mg PO DAILY #30 tabs 04/21/18 [Rx Confirmed 05/09/22] albuterol sulfate 90 mcg/actuation aerosol inhaler 2 puff inhalation Q4H PRN PRN Wheezing ##1 05/14/19 [Rx Confirmed 05/09/22] levothyroxine 75 mcg tablet 75 mcg PO DAILY #30 tabs 05/14/19 [Rx Confirmed 05/09/22] lisinopril 20 mg tablet 20 mg PO DAILY #30 tabs 05/14/19 [Rx Confirmed 05/09/22] PFSH Medical History?(Updated 05/09/22 @ 13:50 by Sami Ramos MD) Left shoulder pain SLAP lesion of left shoulder Surgical History?(Updated 04/04/22 @ 09:20 by Leslie Saucedo) H/O section History of cholecystectomy History of discectomy History of endometrial ablation Cunningham teeth removed Social History?(Updated 04/04/22 @ 09:13 by Leslie Saucedo) Smoking Status:? Current every day smoker Tobacco: How many years used:? 15 alcohol intake:? former substance use type:? former substance user what type of physical activity do you participate in:? yoga HPI LEFT SHOULDER Details: Parts of this documentation were recorded by a scribe, this documentation accurately reflects the service provided and the decisions made by me, Dr. Sami Ramos MD 05/09/22 [id number]. SILVIA TEJADA is a 41 year old F here today for follow-up left shoulder MRI arthrogram.? Had a pulling injury to her left upper extremity.? Still having pain despite physical therapy being performed on the left upper extremity.? Is not interested in a cortisone injection. Ortho Exam General General: Yes no acute distress Neurologic: Yes alert and Yes oriented x3 Psychologic: Yes reasonable and appropriate Left Shoulder Skin/Wound: Yes CDI, No ecchymosis, No erythema and No swelling Testing: Yes Hawkin's, Yes Neer's, Yes Speed's, Yes TTP Biceps, Yes TTP AC Joint, No Drop Arm, Yes AROM-Forward Elevation 0-180, Yes AROM-External Rotation at 90 0-60, Yes AROM-External Rotation at side 0-60, Yes PROM-Forward Elevation 0-180, Yes PROM-External Rotation at side 0-60, No Apprehension Test, No Sulcus Sign, No translation, Yes empty can, No Load and Shift, No jerk, Yes Ferrum and Yes cross arm Internal Rotation: L5 SHOULDER: normal sens/motor at ax, MRU and AIN/PIN Supplemental Info MR#:? [id number] Acct: [id number] Name:? SILVIA TEJADA Rep #: [id number] :?? 1980 F 41 ? From:? ? Damon Skinner MD PCP: [facility] ? Status: REG CLI Study: Upper Ext Jt Only W/Contrast ? Date of Exam: 05/07/22 Exam# [id number] ? Ordering Dr:? Sami Ramos MD STUDY: ? MRI ARTHROGRAM LEFT SHOULDER WITH CONTRAST REASON FOR EXAM: ? Female, 41 years old.? LEFT shoulder pain, slap lesion TECHNIQUE: ? Standardized fat and water weighted pulse sequences were obtained in all 3 orthogonal planes following the intra-articular administration of contrast. COMPARISON: ? None. FINDINGS: Normal supraspinatus tendon. Normal infraspinatus tendon. Normal subscapularis tendon.? Normal teres minor tendon. Normal supraspinatus muscle.? Normal infraspinatus muscle.? Normal subscapularis muscle.? Normal teres minor muscle. Normal glenohumeral articulation.? Normal humeral head and visualized proximal humerus.? Normal biceps labral complex.? Normal intracapsular long biceps tendon.? There is tear of the superior labrum adjacent to the biceps anchor, series 5 images 02/10 through .? Normal capsulo- ligamentous complex.? Normal rotator interval. There is mild osteoarthritis of the acromioclavicular articulation.? There is a Type II morphology (curved) acromion, with a neutral orientation. There is no subacromial-subdeltoid bursal fluid. Normal visualized coracohumeral and coracoacromial ligaments.? Normal quadrilateral space.? Normal axillary space. Normal deltoid muscle.? Normal trapezius muscle. MRI/Upper Ext Jt Only W/Contrast IMPRESSION: SLAP lesion with tear of the superior labrum. ? No rotator cuff tear. ? Electronically Signed: Damon Skinner MD at 22:52 EST Reading Location ID and State: [address] [place] [address] , Service support? , Coding Level of Care Code Off vis,est,level 4 Diagnoses SLAP lesion of left shoulder? S43.432A Comment Book surgery with identified risks Assessment and Plan Assessment and Plan (1) SLAP lesion of left shoulder: ?Status:?Acute ?Plan: 41-year-old female with left shoulder pain MRI showing a SLAP tear as well as positive physical exam findings and history of a pulling mechanism to the shoulder.? We talked about different forms of treatment rest ice anti-inflammatories activity modifications physical therapy injections and surgery either for arthroscopic repair versus subpectoral biceps tenodesis.? The latter is my preferred treatment for this given the rates of stiffness in the literature.? The patient wished to go ahead with surgery signed consent form for left shoulder arthroscopy, subpectoral biceps tenodesis, as well as possible need for blood products.? Patient is a smoker that may increase the risk of infection and other secondary complications as well as having high blood pressure and hypothyroidism. Pros and cons risks and benefits were discussed with the patient including but not limited to infection, pain, stiffness, bleeding, damage to surrounding structures, neurovascular injury, recurrence or retear, failure or wear of hardware or fixation, instability, fracture, deep vein thrombosis and pulmonary embolism, anesthetic risks, patient dissatisfaction, need for further surgery and other risks.? Patient understood and wished to proceed with surgery, and signed the informed consent documentation. [facility] Medical History (Updated 07/05/22 @ 14:39 by Luzmaria Koenig) Arthritis Back pain Drug abuse and dependence Hypertension Injury of back Injury of head and neck Kidney stones Left shoulder pain Migraine headache Normal stress echocardiogram SLAP lesion of left shoulder Smoker Thyroid disease Wears glasses Home Medications albuterol sulfate 90 mcg/actuation aerosol inhaler 2 puff inhalation Q4H PRN PRN Wheezing ##1 05/14/19 [Rx Last Taken Unknown] ibuprofen 800 mg tablet 800 mg PO Q8H PRN Pain 06/12/22 [History Last Taken 06/26/22] escitalopram oxalate 10 mg tablet (Lexapro) 10 mg PO QHS 07/05/22 [History Last Taken Unknown] lisinopril 20 mg tablet 20 mg PO DAILY 07/05/22 [History Last Taken 07/10/22] trazodone 50 mg tablet 50 mg PO QHS 07/05/22 [History Last Taken Unknown] Allergy/AdvReac Type Severity Reaction Status Date / Time codeine AdvReac Other Verified 07/10/22 09:50 lorazepam [From Ativan] AdvReac Other Verified 07/10/22 09:50 Surgical History H/O section History of cholecystectomy History of discectomy History of endometrial ablation Hx of tubal ligation Cunningham teeth removed Social History (Updated 04/04/22 @ 09:13 by Leslie Saucedo) Smoking Status: Current every day smoker tobacco type: cigarettes Tobacco: How many years used: 15 alcohol intake: former substance use type: former substance user what type of physical activity do you participate in: yoga Vital Signs Vital Signs Vital Signs: 07/10/22 09:51 07/10/22 09:51 Temperature 97.6 F L Temperature Source Temporal Pulse Rate 70 Respiratory Rate 18 Respiratory Pattern Normal Blood Pressure 132/94 H Blood Pressure Mean 106 Blood Pressure Source Monitor Blood Pressure Position Semi-Fowlers Blood Pressure Location Right Arm Pulse Ox 96 Oxygen Delivery Method Room Air Weight Weight: 194 lb 0.108 oz Body Mass Index (BMI) 31.3
--- NOTE | 2022-07-10 11:10 | TESH_PTH ---
PATIENT: SILVIA TEJADA LOC: [facility] – [place] U#:[id number] AGE/SX: 41/F ROOM: RE07/10/[address]: Dr. Sami Ramos MD : 1980 BED: DIS: 07/10/2022 SPEC #: [id number] RECD: 07/10/22 14:14 STATUS: KONG KIERAN #: [id number] CASSANDRA: 07/10/22 11:[address]: Sami Ramos DEPT: SURGICAL PATHOLOGY RECD BY: Aleena Perez ENTERED: 07/11/22 09:01 SP TYPE: TENDON OTHR DR: MD Lindsey Whatley, RISK CONTROL SPECIALIST-C Tissues: Tendon and tendon sheath, NOS Procedures: Surgery Specimen Level III HEADER OPERATION: Arthroscopy shoulder, subpectoral biceps tenodesis PRE-OP DIAGNOSIS: SLAP lesion of left shoulder TISSUE SUBMITTED: Left biceps tendon MICROSCOPIC DIAGNOSIS Left biceps tendon, excision: Reparative and reactive change. AM:connor 07/12/2022 MICROSCOPIC DESCRIPTION Slides are reviewed. GROSS DESCRIPTION Received in fixative is one container labeled with the patient's name and designated biceps tendon. The specimen consists of an elongated fragment of white tendinous tissue measuring 2.0 x 0.7 x 0.3 cm. The specimen is sectioned and totally submitted in one cassette. / AM:connor 07/11/2022 TC:5 CPT: 13878
[2022-07-10] MEDS: Cefazolin 2 GM in 0.9% Normal Saline 100 ML IV (11:32)
[2022-07-10] MEDS: Epinephrine (1 mg/ml) 1 MG/ML VIAL (12:17)
--- NOTE | 2022-07-10 12:52 | PCM.OPRPT ---
Problems Associated Problem List Diagnoses (1) SLAP lesion of left shoulder: (2) Left shoulder pain: Report of Operation Date of Procedure: 07/10/22 Pre-Operative Diagnosis: left shoulder slap tear Post-Operative Diagnosis: same Surgery/Procedure Performed:: left shoulder arthroscopy, biceps tenodesis Surgeon: Sami Ramos Type of Anesthesia: Block,Regional and General Anesthesiologist: Duong Morris Estimated Blood Loss (mL): 50 Description of Procedure: Patient brought to the operating room theater. Placed supine on the table. General anesthesia induced. 2 g IV Ancef administered prior to the start of procedure. Patient placed left side up lateral decubitus beanbag positioner axillary roll used. All bony prominences padded. SCDs on the legs. Left upper extremity prepped and draped in usual sterile fashion chlorhexidine-based prep solution allowing over 3 minutes drying time prior to draping. 10 pounds of inline traction with the arm in 35 degrees abduction was employed. Preoperative timeout performed to confirm the site the patient and the surgery. Began by inserting the arthroscope into the intra-articular portion of the shoulder through a standard posterior arthroscopy portal. Did a full diagnostic arthroscopy. Established an anterior portal through the rotator interval just posterior to the biceps tendon using inside-out spinal needle localization. Subscapularis normal although slight amount of superior border fraying gently debrided this. Cartilage on the glenoid and humeral head were normal. Undersurface the rotator cuff appeared normal. Type II SLAP tear instability of the long head of the biceps insertion at the superior portion of the labrum. No obvious other labrum tears. No loose bodies. Axillary recess entered. Biceps tenotomy performed with an ablator instrument. Gently debrided the stump. Next placed the scope into the subacromial space. Did a complete bursectomy. No obvious downsloping or spur of the undersurface of the acromion. Rotator cuff probed no tears. Arthroscope withdrawn. Pictures taken throughout the case and saved onto the system. Next I turned my attention to the open aspect of the procedure. Made a small 2 inch incision centered over the proximal anteromedial aspect of the upper humerus. Carried dissection down through skin subcutaneous tissue, achieved meticulous hemostasis. Incised the fascia in line with skin incision. Identified long head biceps delivered this through the incision. Used the Arthrex proximal biceps tenodesis with button kit whipstitch with a Hiram needle. Did 5 locking sutures then passed the suture back proximally to lock the repair. Cut the suture at the splice. Shortened the tendon slightly. Passed the sutures in opposing directions through the button. Next I used the spade tip 3.2 mm drill bit unicortical hole irrigated any bone dust. Did this in the mid aspect of the humerus. Then passed the button into the hole flipped the button deliver the tendon to the tunnel. Then used Arce needle passed 1 limb of the suture back through the tendon and 5 interrupted half inches with the sutures cut short to lock the tendon in place. Wound thoroughly irrigated subcutaneous tissue closed with 2-0 Vicryl and 3-0 Monocryl. Skin cleaned with wet and dry dressing, then application of Steri-Strips Adaptic 4 x 4 gauze ABD dressing cloth tape and a sling abduction pillow sling for the upper extremity. Case terminated patient woken up from the general anesthetic transferred off the operating table and taken to postanesthetic care unit in stable condition. All sponge needle instrument counts were correct no complications plan for the patient discharged home per day surgery criteria start pendulum exercises as well as hand wrist and elbow exercises and follow-up in the office in 2 days time. Complications none Admit VTE Documentation VTE Present on Admission: No VTE Mechan Device Prophylaxis: SCD's Reason prophylaxis not ordered:: Treatment Not Indicated Procedures Musculoskeletal 20xxx-29xxx: Other Procedure See Report
--- NOTE | 2022-07-10 13:00 | EX.PCM.DISCH ---
Discharge Instructions Diet Discharge Diet: No restrictions Activity Ice area for (Minutes): 10 Lifting Restrictions: pendulums four times a day, hand wrist elbow ROM ok Dressing / Incision Call your doctor if your incision/area has: Continuous Slow Oozing, Sudden Increased Bleeding, Increased Pain/ Swelling, Increased Redness, Foul Smelling Discharge and Swelling at the incision site Change Dressing in: leave in place till F/U Follow Up Care Please Follow Up With: Sami Ramos MD When: 2 days Test Results: Test results from this visit will be discussed in further detail at your follow-up appointment, if applicable. Discharge Plan Admission Attending Provider: Sami Ramos Primary Care Provider: Lindsey Rojas ANESTHESIA TECHNICIAN Consulting Providers: Rahul Baer Instructions Patient Instructions: After Shoulder Arthroscopy Discharge Orders/Prescriptions Prescriptions: New oxycodone-acetaminophen [Percocet] 5-325 mg tablet 1 tab PO Q6H MDD 6 PRN (Reason: pain) 5 Days Qty: 20 0RF No Action albuterol sulfate 1 INHALER inhaler 2 puff inhalation Q4H PRN PRN (Reason: Wheezing) Qty: 1 0RF ibuprofen 800 mg Tablet 800 mg PO Q8H PRN (Reason: Pain) trazodone 50 mg Tablet 50 mg PO QHS lisinopril 20 mg Tablet 20 mg PO DAILY escitalopram oxalate [Lexapro] 10 mg Tablet 10 mg PO QHS Referrals / Follow Up: Sami Ramos MD [Med Staff - Active Staff] - Lindsey Rojas ANESTHESIA TECHNICIAN, ANESTHESIA TECHNICIAN-C [Primary Care Provider] - Disposition Discharge Orders: Discharge Patient (Routine); Ordered 07/10/22 Ordered By: Sami Ramos
[2022-07-10] MEDS: HYDROcodone Bitartrate/Apap 5/325 Tablet PO (14:44)
== END 2022-07-10 15:00 | disposition home or self-care (01) ==
LOC: SDC 09:26 → AC 09:27
PROVIDERS: Anesthesiology; PCP Nurse Practitioner; Referring Provider Orthopaedic Surgery Sports Medicine; Visit Provider Orthopaedic Surgery Sports Medicine
PROC: (CPT 29805; principal; 2022-07-10 10:50)
DX: S43.432A Superior glenoid labrum lesion of left shoulder, initial encounter (principal); I10 Essential (primary) hypertension; F17.210 Nicotine dependence, cigarettes, uncomplicated; M25.512 Pain in left shoulder; Z79.82 Long term (current) use of aspirin
CPT/HCPCS: 29822; 23430; 64450; 01716; 36415; 84443; 88304; J7120; J2405

== ENCOUNTER 2022-09-13 15:30 | Outpatient (RCR) | payer BC, MEDICAID, SELFPAY ==
--- NOTE | 2022-07-17 16:44 | HP.PTEVAL_ITS ---
Patient's Visit Information SILVIA TEJADA is a 41 year old F referred to Physical Therapy by Dr. Sami Ramos MD with a diagnosis of Left SLAP Repair 07/10/22. Date of Evaluation: 07/17/22 Physical Therapist: Inna Zeng DPT - Visit Plan Frequency: 2x /Week Duration: 4 Weeks Plan: From MD: Pendulums Only- d/c sling 1-2 weeks, okay for hand, wrist, elbow ROM. 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 Hold until restrictions lifted by then 2x a week for 4 weeks for progression of ROM - Subjective Left SLAP Repair by Dr. Ramos 07/10/2022. She went home after surgery- she has been wearing the sling- took it off for showering and took it off to stretch to her elbow and use the squeeze the ball. She reports that holding a cup of coffee is too much. She is right hand dominate. Worst: 6-7/10 the pain is now different. Agg: movement. Describes the pain as dull and throbbing at resting. Burning, searing and nauseated at its worse. Eases: rest, ice at first but has ellen backed off of it. Best: 3/10. Pain is located in the bicep and through the arm to the it pulls in the back- feels it through the back of the arm. Pain does radiate into the last two fingers. She does have some twitching. She has taken her Percocet and is also taken Tylenol and Ibuprofen. Does have some N/T in her fingers but it gets better if she moves them around. Sleep: tries to sleep in bed- pillows built up against the wall- does wake her up throughout the night- does keep her up at night- does sleep in her sling. 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 PMHx/Meds: Lisinopril, Lexipro and Trazadone have been added since ortho. - Objective Posture: guarding of the left UE- sling. Gait: decreased arm swing of the left UE. Observation: no s/s of infection- bandages intact. Palpation: tender throughout bicipital groove and down the bicep and triceps PROM: Shoulder: Flexion: 60 degrees Abd: 50 degrees, IR: to belly, ER: 50 degrees did not push into pain, AROM: Elbow/Wrist/Hand/Cervical: WFL Strength: not tested due to surgical UE - Balance/Special Test Scores Quick DASH Score: 75.0000 - Goals Goal 1:: Patient will be I with HEP and progression Goal Time Frame: 12-16 Weeks Goal 2:: Patient will demo full AROM of the left shoulder Goal Time Frame: 12-16 Weeks Goal 3:: Patient will demo proper posture t/o tx session to demo scap s/s Goal Time Frame: 12-16 Weeks Goal 4:: Patient will report 80% improvement Goal Time Frame: 12-16 Weeks - Rehabilitation Potential Physical Therapy Diagnosis: Patient presents with hypomobility s/p SLAP repair- she has decreased left shoulder ROM, scapular strength/stabilization, flex and muscular endurance leading to increased pain with ADL's. Rehabilitation Potential: Good - Anticipated Interventions Patient/Client Instruction: Educate patient on: Benefits of Fitness Program Therapeutic Exercise to Include: Strength training, Endurance training, Agility training, Body mechanics, Postural training, Neuromotor development, Passive ROM, Active ROM, Dynamic Lumbar Stabilization, Scapular Strength/Stabilization For the Purpose of:: To improve muscle performance and motor function Manual Therapy Techniques to Include: Soft tissue mobilization TENS: Yes Cryotherapy (ice pack, ice massage): Yes Thermo therapy (hot pack): Yes Thank you for the opportunity to evaluate your patient. For Medicare and Medicare HMO plans, please review the plan of care and approve it. It will need to be FAXED BACK to us at [phone] for Medicare purposes. For Medicare only, by signing this I certify the plan of care. Please let me know if there are questions or concerns regarding this plan of care. Physician Signature: Date:
--- NOTE | 2022-09-13 15:58 | HP.PTREVAL ---
Dr. Sami Ramos MD, It has been my pleasure to treat SILVIA TEJADA over the last 8 visits for Left SLAP Repair 07/10/22. Please see the progress note below for an update on the physical therapy plan of care! Subjective: Pt. reports being a little muslce sore after last visit, but nothing much. Pt. reports no pain today. Objective/Function: Pt. is doing great. She is progressing well with phase III strengthening, both for RTC and deltoid. Pt. is to see physician next week. Plan Plan: I plan to see her every two weeks until returning to work to monitor strengthening and progress exercises. Balance/Gait/Functional tests - Balance/Special Test Scores Quick DASH Score: 75.0000 Goals Goal 1:: Patient will be I with HEP and progression Goal Time Frame: 12-16 Weeks Goal 2:: Patient will demo full AROM of the left shoulder Goal Time Frame: 12-16 Weeks Goal 3:: Patient will demo proper posture t/o tx session to demo scap s/s Goal Time Frame: 12-16 Weeks Goal 4:: Patient will report 80% improvement Goal Time Frame: 12-16 Weeks Anticipated Interventions Patient/Client Instruction: Educate patient on: Benefits of Fitness Program Therapeutic Exercise to Include: Strength training, Endurance training, Agility training, Body mechanics, Postural training, Neuromotor development, Passive ROM, Active ROM, Dynamic Lumbar Stabilization, Scapular Strength/Stabilization For the Purpose of:: To improve muscle performance and motor function Manual Therapy Techniques to Include: Soft tissue mobilization TENS: Yes Cryotherapy (ice pack, ice massage): Yes Thermo therapy (hot pack): Yes Please do not hesitate to contact me at [phone] by phone or if you have questions or concerns regarding this new plan of care! Sincerely, John Liao DPT
--- NOTE | 2022-10-21 09:49 | HP.PTDCNRP_ITS ---
Patient Information Patient Information: SILVIA TEJADA was seen in my office for initial evaluation on 07/17/22. The following Plan of Care was established for this patient: POC Established Initial Frequency: 2x /Week Initial Duration: 4 Weeks Anticipated Interventions Patient/Client Instruction: Educate patient on: Benefits of Fitness Program Therapeutic Exercise to Include: Strength training, Endurance training, Agility training, Body mechanics, Postural training, Neuromotor development, Passive ROM, Active ROM, Dynamic Lumbar Stabilization and Scapular Strength/ Stabilization For the Purpose of:: To improve muscle performance and motor function Manual Therapy Techniques to Include: Soft tissue mobilization TENS: Yes Cryotherapy (ice pack, ice massage): Yes Thermo therapy (hot pack): Yes Last Seen Last Seen: This patient was last seen in our office . Pertinent comments regarding their Physical therapy will appear below: Patient has not attended PT in over 30 days- appropriate to continue HEP and call if questions or concerns. At this point I will be discontinuing this patient from physical therapy. I would be happy to see this patient again in the future if found appropriate by the physician. Thank you! Inna Zeng DPT Balance/Gait/Functional tests Balance/Special Test Scores Quick DASH Score: 75.0000
== END 2022-09-13 19:00 | disposition home or self-care (01) ==
LOC: PT 15:30
PROVIDERS: PCP Nurse Practitioner; Referring Provider Orthopaedic Surgery Sports Medicine; Visit Provider Orthopaedic Surgery Sports Medicine
DX: S43.432D Superior glenoid labrum lesion of left shoulder, subsequent encounter (principal)
CPT/HCPCS: 97110; 97140; 97162

== ENCOUNTER 2023-07-03 16:28 | Emergency (ER) | payer SELFPAY ==
[2023-07-03 16:30] VITALS: BP 161/147; PULSE 105; RESP 18; TEMP 35.9; O2SAT 98; BMI 34.9
[2023-07-03] MEDS: Ondansetron 4 MG/2 ML Vial IV ×2 (17:07→20:26)
[2023-07-03] MEDS: 0.9% Normal Saline (1000mL) 1,000 ML 1000 ML IV (17:07)
[2023-07-03] MEDS: Ketorolac 15 MG/ML Vial IV (17:08)
[2023-07-03] MEDS: Dicyclomine 20 MG/2 ML Vial IM (17:09)
--- NOTE | 2023-07-03 17:18 | EX.ED.DYSGE1 ---
HPI <NAI Mclain - Last Filed: 07/03/23 20:56> History of Present Illness Chief Complaint: Nausea/Vomiting/Diarrhea Narrative Narrative: Patient is a 42-year-old female with history of hypertension who presents to the emergency department for nausea, vomiting, diarrhea that started around 6 AM this morning. Patient states that she has vomited greater than 20 times and had 7 or 8 loose stools today. Patient states that the cramping is intense, and she almost cannot make it to the bathroom. Patient states that her daughter did have a GI bug 48 hours previous. Patient states that the pain is in her abdomen and is all over, she feels dehydrated. Patient arrives via EMS. PFSH <NAI Mclain - Last Filed: 07/03/23 20:56> [facility] Medical History Arthritis Back pain Drug abuse and dependence Hypertension Injury of back Injury of head and neck Kidney stones Left shoulder pain Migraine headache Normal stress echocardiogram SLAP lesion of left shoulder Smoker Thyroid disease Wears glasses Home Medications albuterol sulfate 90 mcg/actuation aerosol inhaler 2 puff inhalation Q4H PRN PRN Wheezing ##1 05/14/19 [Rx Last Taken Unknown] ibuprofen 800 mg tablet 800 mg PO Q8H PRN Pain 06/12/22 [History Last Taken 06/26/22] lisinopril 20 mg tablet 20 mg PO DAILY 07/05/22 [History Last Taken 07/10/22] trazodone 50 mg tablet 50 mg PO QHS 07/05/22 [History Last Taken Unknown] dicyclomine 20 mg tablet 20 mg PO TID #30 tabs 07/03/23 [Rx Last Taken Unknown] ondansetron 4 mg disintegrating tablet 4 mg PO Q8H PRN PRN Nausea #20 tabs 07/03/23 [Rx Last Taken Unknown] Allergy/AdvReac Type Severity Reaction Status Date / Time codeine AdvReac Other Verified 07/03/23 16:29 lorazepam [From Ativan] AdvReac Other Verified 07/03/23 16:29 Surgical History H/O section History of cholecystectomy History of discectomy History of endometrial ablation Hx of tubal ligation Arco teeth removed Social History Smoking Status: Current every day smoker tobacco type: cigarettes Tobacco: How many years used: 15 alcohol intake: former substance use type: former substance user what type of physical activity do you participate in: yoga ROS <NAI Mclain - Last Filed: 07/03/23 20:56> ROS ED ROS Narrative Constitutional: Negative for fever, weight loss, weakness. Positive for chills Eyes: Negative for vision loss, vision change, double vision ENT: Negative for any sore throat, ear pain, congestion Cardiovascular: Negative for any chest pain, tightness, palpitations Respiratory: Negative for any cough, sputum production, hemoptysis, dyspnea, dyspnea on exertion, orthopnea Gastrointestinal: Negative for any, constipation, blood in stool, blood in vomit./Positive for abdominal pain, nausea, vomiting, diarrhea : Negative for any urinary frequency, dysuria, retention, blood in urine Muscle skeletal: Negative for any neck pain, back pain Neurological: Negative for any headache, syncope, dizziness Skin: Negative for any rashes, itching, abrasions, lacerations Psychiatric: Negative for any depression, anxiety, stress, suicidal ideation, homicidal ideation Hematologic: Negative for any excessive bruising, easy bleeding EXAM <NAI Mclain - Last Filed: 07/03/23 20:56> Physical Exam Narrative Exam Narrative: Vital signs reviewed. HEET: Head normocephalic atraumatic, TMs clear bilaterally. Posterior pharynx is clear, moist mucous membranes. Nares clear bilaterally. Neck: Supple with no lymphadenopathy or tenderness. No signs of meningismus. Cardiac: Regular rate and rhythm no murmurs gallops or rubs, equal peripheral pulses bilaterally. Respiratory: Lungs clear to auscultation bilaterally. No chest tenderness. Abdomen: Soft,nondistended. No abdominal bruit or pulsatile masses. No hepatosplenomegaly. Patient has pain throughout the entire abdominal exam however the abdomen is soft, no peritoneal signs. Active bowel sounds in all quadrants Extremities: No peripheral edema, no signs of gross trauma or deformity. Active full range of motion of all extremities. Neuro: Cranial nerves II through XII intact, no focal neurological deficits. Skin: Clean dry and intact with no rash, purpura, petechiae, vesicles or pustules. Backs/flank: No CVA tenderness, no midline spinal tenderness, no deformity. Psych: Normal mood and affect. No SI, HI or acute psychosis. Const Vital Signs: 07/03/23 16:30 07/03/23 19:27 07/03/23 20:07 Temperature 96.6 F L Temperature Source Temporal Pulse Rate 105 H 77 82 Respiratory Rate 18 20 H 22 H Blood Pressure 161/147 H 154/110 H Blood Pressure Mean 151 125 Pulse Ox 98 97 97 Oxygen Delivery Method Room Air Positive well nourished and well developed General Appearance ED: well developed <Dr. Davonte Fernández, DO - Last Filed: 07/03/23 21:14> Physical Exam Const Vital Signs: 07/03/23 16:30 07/03/23 19:27 07/03/23 20:07 Temperature 96.6 F L Temperature Source Temporal Pulse Rate 105 H 77 82 Respiratory Rate 18 20 H 22 H Blood Pressure 161/147 H 154/110 H Blood Pressure Mean 151 125 Pulse Ox 98 97 97 Oxygen Delivery Method Room Air MDM <NAI Mclain - Last Filed: 07/03/23 20:56> MDM Lab Data Labs: Laboratory Results - last 24 hr 07/03/23 07/03/23 07/03/23 16:42 17:03 20:10 WBC 14.6 H RBC 4.88 Hgb 14.4 Hct 43.0 MCV 88.1 MCH 29.5 MCHC 33.5 RDW Std Deviation 40.1 RDW Coeff of Meli 12.5 Plt Count 338 MPV 9.5 Immature Gran % (Auto) 0.300 Neut % (Auto) 93.9 H Lymph % (Auto) 2.5 L George % (Auto) 2.9 Eos % (Auto) 0.2 Baso % (Auto) 0.2 Absolute Neuts (auto) 13.7 H Absolute Lymphs (auto) 0.36 L Nucleated RBC % 0 Differential Comment SEE COMMENT Platelet Estimate ADEQUATE RBC Morphology N CHROM Anisocytosis RARE Sodium 138 Potassium 2.8 L Chloride 104 Carbon Dioxide 27.0 Anion Gap 7 BUN 28 H Creatinine 0.74 Estim Creat Clear Calc 110.82 Est GFR (MDRD) Af Amer 110 Est GFR (MDRD) Non-Af 91 BUN/Creatinine Ratio 37.9 H Glucose 187 H Calcium 9.4 Total Bilirubin 2.00 H AST 19 ALT 23 Alkaline Phosphatase 61 Total Protein 8.0 Albumin 3.9 Globulin 4.1 Albumin/Globulin Ratio 1.0 Lipase 17 Urine Color Yellow Urine Clarity Clear Urine pH 5.0 Ur Specific Heiskell 1.005 Urine Protein 30 H Urine Glucose (UA) Normal Urine Ketones Negative Urine Occult Blood 250 H Urine Nitrite Negative Urine Bilirubin Negative Urine Urobilinogen Normal Ur Leukocyte Esterase Negative Urine RBC 5-10 SEEN Urine WBC 0 SEEN Ur Squamous Epith Cells 0-5 SEEN Amorphous Sediment 1+ URATE Urine Bacteria 0 SEEN Urine Mucus 0 SEEN Urine Test Negative Radiography Diagnostic Testing: Clinical Impression(s) from Imaging Studies Abdomen/Pelvis CT 07/03/23 18:31 IMPRESSION: Hepatic lesions suggestive for hemangiomas. Bilateral adnexa cystic nodules. Correlate with ultrasound if needed. Right adrenal solid nodule. Electronically Signed: Darin Duffy DO at 20:00 EDT Reading Location ID and State: [address] [place] [address] Tel [phone], Service support , Treatment and Re-Evaluation :: Differential diagnosis includes however is not limited to: Infectious diarrhea, gastroenteritis, viral syndrome, abdominal cramping Patient appears to be in mild distress secondary to nausea, vomiting, abdominal cramping.Patient will receive IV fluids, 2 L, Bentyl Toradol and Zofran. Patient will be reevaluated. Patient received basic laboratory eval as well as urinalysis. \ Patient's laboratory values showed a 14.6 white blood cell count, chemistries showed some hypokalemia with a potassium of 2.8, this will be replaced 20 mg IV as well as 40 mill equivalents p.o. Patient's creatinine was 0.74 which is normal. Total bilirubin was slightly elevated at 2, lipase was negative. Secondary to the patient's ongoing pain, patient was given Reglan for nausea. Patient will receive a CT scan of the abdomen pelvis. All radiologic examinations were read, reviewed by the emergency department attending. From these reads, a plan of care will be put in place. CT scan shows hepatic lesions suggestive of hemangiomas, bilateral adnexa cystic nodules, no acute bowel obstruction, no acute surgical emergency. On reevaluation, the patient was feeling much better. Patient is able to pass a p.o. challenge. At this time, patient be diagnosed with gastroenteritis, nausea and vomiting. She instructed to advance her diet as tolerated, starting with clear liquids. She be given Zofran and Bentyl for home. She is instructed return for any worsening symptoms. <Dr. Davonte Fernández, DO - Last Filed: 07/03/23 21:14> [facility] Narrative Medical decision making narrative: I have personally performed a face to face assessment of the patient and have reviewed the NISHI Note. I performed a substantive portion of the visit including all aspects of the following. My lechuga findings include: History: Patient presents with nausea, vomiting, and diarrhea that began today. Patient states that other family members have been ill with the same symptoms. Patient states she is unable to keep anything down. Patient states she has pain across her entire abdomen better nothing makes it worse. Patient denies any hematemesis or coffee-ground emesis. Patient admits to some watery diarrhea. Patient denies any melena or hematochezia. Patient denies any dysuria, frequency, or hematuria. Exam: Vital signs are stable. Patient is afebrile. Patient is in no acute distress. Oral mucosa is pink and moist. Neck is supple. Trachea is midline. There is no JVD. Heart was regular and slightly tachycardic. Lungs are clear and equal bilaterally. There is good respiratory effort noted. Abdomen is soft. Bowel sounds are normal. There is mild diffuse tenderness. There is no rebound or guarding noted. Cranial nerves II through XII are intact. There are no focal motor or sensory deficits noted. Medical Decision Making: Differential diagnosis includes gastroenteritis, viral illness, electrolyte abnormality, urinary tract infection, pancreatitis, and . CT scan of the abdomen pelvis will be obtained to assess for bowel obstruction or perforation. CBC will be obtained to assess for leukocytosis and anemia. Comprehensive metabolic profile will be obtained to assess for hepatic function, renal function, and electrolyte abnormality. Lipase will be obtained to assess for pancreatitis. Urinalysis will be obtained to assess for urinary tract infection. Urine hCG will be obtained to assess for . Patient was given IV fluids. Patient was given Zofran and Bentyl. Patient was also given a dose of Reglan and Toradol. CBC was reviewed. There is a mild leukocytosis of 14.6. The remainder is within normal limits. Comprehensive metabolic profile was reviewed. Potassium was low at 2.8. Total bilirubin was elevated at 2.0. Anion gap was normal. BUN was slightly elevated at 28. Creatinine was normal at 0.74. Lipase was reviewed and was normal at 17. Urinalysis was reviewed. There is no evidence of urinary tract infection or hematuria. Urine hCG was reviewed and was negative. Patient was advised of her findings. Patient was instructed to drink plenty of fluids. Patient was instructed to follow-up with her primary care physician in 5 to 7 days. Patient was instructed return if worse in any way. Patient understood and was agreeable with the plan. All questions were answered. Lab Data Labs: Laboratory Results - last 24 hr 07/03/23 07/03/23 07/03/23 16:42 17:03 20:10 WBC 14.6 H RBC 4.88 Hgb 14.4 Hct 43.0 MCV 88.1 MCH 29.5 MCHC 33.5 RDW Std Deviation 40.1 RDW Coeff of Meli 12.5 Plt Count 338 MPV 9.5 Immature Gran % (Auto) 0.300 Neut % (Auto) 93.9 H Lymph % (Auto) 2.5 L George % (Auto) 2.9 Eos % (Auto) 0.2 Baso % (Auto) 0.2 Absolute Neuts (auto) 13.7 H Absolute Lymphs (auto) 0.36 L Nucleated RBC % 0 Differential Comment SEE COMMENT Platelet Estimate ADEQUATE RBC Morphology N CHROM Anisocytosis RARE Sodium 138 Potassium 2.8 L Chloride 104 Carbon Dioxide 27.0 Anion Gap 7 BUN 28 H Creatinine 0.74 Estim Creat Clear Calc 110.82 Est GFR (MDRD) Af Amer 110 Est GFR (MDRD) Non-Af 91 BUN/Creatinine Ratio 37.9 H Glucose 187 H Calcium 9.4 Total Bilirubin 2.00 H AST 19 ALT 23 Alkaline Phosphatase 61 Total Protein 8.0 Albumin 3.9 Globulin 4.1 Albumin/Globulin Ratio 1.0 Lipase 17 Urine Color Yellow Urine Clarity Clear Urine pH 5.0 Ur Specific Heiskell 1.005 Urine Protein 30 H Urine Glucose (UA) Normal Urine Ketones Negative Urine Occult Blood 250 H Urine Nitrite Negative Urine Bilirubin Negative Urine Urobilinogen Normal Ur Leukocyte Esterase Negative Urine RBC 5-10 SEEN Urine WBC 0 SEEN Ur Squamous Epith Cells 0-5 SEEN Amorphous Sediment 1+ URATE Urine Bacteria 0 SEEN Urine Mucus 0 SEEN Urine Test Negative Radiography Diagnostic Testing: Clinical Impression(s) from Imaging Studies Abdomen/Pelvis CT 07/03/23 18:31 IMPRESSION: Hepatic lesions suggestive for hemangiomas. Bilateral adnexa cystic nodules. Correlate with ultrasound if needed. Right adrenal solid nodule. Electronically Signed: Darin Duffy DO at 20:00 EDT Reading Location ID and State: [facility] / [place] Tel [phone], Service support , Discharge Plan Triage Chief Complaint: Nausea/Vomiting/Diarrhea ED Midlevel Provider: Maximo Noel ED Provider: Davonte Fernández Dx/Rx/DC Orders Clinical Impression: Diarrhea, Gastroenteritis, Nausea & vomiting, Acute hypokalemia Instructions: ED Diarrhea, Unknown Cause, ED Gastritis (Adult) Prescriptions: New ondansetron 4 mg tablet,disintegrating 4 mg PO Q8H PRN PRN (Reason: Nausea) Qty: 20 0RF dicyclomine 20 mg tablet 20 mg PO TID Qty: 30 0RF No Action albuterol sulfate 1 INHALER inhaler 2 puff inhalation Q4H PRN PRN (Reason: Wheezing) Qty: 1 0RF ibuprofen 800 mg Tablet 800 mg PO Q8H PRN (Reason: Pain) trazodone 50 mg Tablet 50 mg PO QHS lisinopril 20 mg Tablet 20 mg PO DAILY Stand Alone Forms: ED Work / School Excuse Primary Care Provider: Lindsey Arcos NP Referrals: Lindsey Arcos TRACK LINER OPERATOR, TRACK LINER OPERATOR-C [Primary Care Provider] - Activity Restrictions/Additional Instructions: Please advance her diet as tolerated starting with clear liquids. Use the Zofran Bentyl as needed. Wash her hands. Disposition Disposition: Home, Self Care
[2023-07-03 17:20] LABS: Absolute Lymphocyte Count 0.36 X10^3/uL (0.83-4.51); Absolute Neutrophil Count 13.7 X10^3/uL (2.0-7.7); Basophil# 0.03 X10^3/uL; Basophil% 0.2 % (0-1); Eosinophil# 0.03 X10^3/uL; Eosinophils% 0.2 % (0-5); Hemoglobin 14.4 g/dL (12.0-15.0); Lymphocyte # 0.36 X10^3/ul (0.83-4.51); Lymphocyte % 2.5 % (19-41); Mean Corp Hgb Conc 33.5 g/dL (32-36); Mean Corpuscular Hgb 29.5 pg (27.0-32.0); Mean Corpuscular Volume 88.1 fL (81-99); Mean Platelet Vol. 9.5 fl (6.2-12.0); Monocyte# 0.43 X10^3/uL; Monocyte% 2.9 % (0-10); NRBC Flagged by Analyzer 0 % (0-5); Neutrophil # 13.71 X10^3/uL (2.7-7.7); Neutrophil % 93.9 % (47-70); POSITIVE DIFFERENTIAL YES; Platelet Count 338 K/mm3 (150-450); RBC Distribution Width CV 12.5 % (11.6-14.6); RBC Distribution Width SD 40.1 fl (35.1-43.9); Red Blood Count 4.88 M/mm3 (4.2-5.4); White Blood Count 14.6 K/mm3 (4.4-11.0)
[2023-07-03 17:30] LABS: Differential Indicated SCAN CRITERIA MET
[2023-07-03 17:34] LABS: AST(SGOT) 19 U/L (15-37); Alanine Aminotransfer ALT/SGPT 23 U/L (13-56); Albumin, Serum 3.9 g/dL (3.2-5.0); Alkaline Phosphatase 61 U/L (45-117); Anion Gap 7 (5-15); BUN 28 mg/dL (7-18); BUN/Creat Ratio 37.9 RATIO (10-20); Calcium,Total 9.4 mg/dL (8.5-10.1); Chloride 104 mmol/L (98-107); Creatinine, Serum 0.74 mg/dL (0.55-1.02); EST Glomerular Filtration Rate 91 mL/min (>60); Est Glom Filt Rate - Afr Amer 110 mL/min (>60); Estimated Creatinine Clearance 110.82 ml/min; Globulin 4.1 g/dL (2.2-4.2); Glucose 187 mg/dL (74-106); Lipase 17 U/L (13-75); Potassium 2.8 mmol/L (3.5-5.1); Sodium Level 138 mmol/L (136-145)
[2023-07-03 18:16] LABS: Anisocytosis RARE; Platelet Estimate ADEQUATE (ADEQ); Red Cell Morphology N CHROM NORMAL (NORM C&C)
--- NOTE | 2023-07-03 18:31 | CT_ITS ---
STUDY: CT ABDOMEN AND PELVIS WITH CONTRAST REASON FOR EXAM: Female, 42 years old. Abdominal pain RADIATION DOSAGE (If Supplied By Facility): CTDIvol = ( 14.92 ) mGy, DLP = ( 1165.37 ) mGycm TECHNIQUE: Transaxial images were obtained from the dome of the diaphragm to the symphysis pubis without oral contrast. IV 100mL Isovue-370 was administered. Sagittal and coronal images were reconstructed. Individualized dose optimization techniques were used for this CT. COMPARISON: None. FINDINGS: The visualized lung bases are unremarkable. The visualized portions of the heart are within normal limits. 2.7 cm and 4.5 cm right hepatic lesions and additional smaller hypoattenuated left hepatic lesions in the liver possibly hemangiomas. Correlate with ultrasound if needed. Status post cholecystectomy. Mild prominence of the extrahepatic biliary system. Normal spleen. Normal pancreas. 1.5 cm right adrenal solid lesion. Normal right kidney. Normal left kidney. Normal visualized stomach. Normal small intestine. Normal colon. The appendix is visualized and appears normal. Normal abdominal aorta. Normal inferior vena cava. Normal retroperitoneum. Normal urinary bladder. Right adnexal 2.4 and left adnexal 2 cm cystic lesions. Small fatty umbilical hernia. Mild compression of L2. CT/Abdomen/Pelvis W IV Cont ONLY IMPRESSION: Hepatic lesions suggestive for hemangiomas. Bilateral adnexa cystic nodules. Correlate with ultrasound if needed. Right adrenal solid nodule. Electronically Signed: Darin Duffy DO at 20:00 EDT ,
[2023-07-03] MEDS: 0.9% Normal Saline (1000mL) 1,000 ML 999 ML IV (18:38)
[2023-07-03] MEDS: Metoclopramide 10 MG/2 ML Vial 5 MG IV (18:38)
[2023-07-03] MEDS: Potassium Chloride 10mEq/100mL 10 MEQ/100 ML IV.SOLN. 100 MEQ IV BOLUS ×2 (19:21→20:23)
[2023-07-03] MEDS: Potassium Chloride Oral Tablet 20 MEQ 40 MEQ PO (19:24)
[2023-07-03 19:27] VITALS: PULSE 77; RESP 20; O2SAT 97
[2023-07-03 20:07] VITALS: BP 154/110; PULSE 82; RESP 22; O2SAT 97
[2023-07-03 20:34] LABS: Bacteria 0 SEEN /hpf (None Seen); Mucous, Urine 0 SEEN /hpf (<or=2+); White Blood Cells 0 SEEN /hpf (0-5)
[2023-07-03 20:35] LABS: Color, Urine Yellow (Yellow); Glucose, Dipstick Normal (Normal); Ketone-Dipstick Negative (Negative); Leukocyte Esterase-Dipstick Negative /ul (Negative); Nitrite-Dipstick Negative (Negative); Occult Blood-Urine 250 /ul (Negative); Protein-Dipstick 30 mg/dl (Negative); Specific Gravity, Urine 1.005 (1.002-1.030); Urine Bilirubin Dipstick Negative (Negative); Urine Clarity Clear (Clear); Urine Urobilinogen Normal (Normal)
[2023-07-03 20:45] LABS: Internal QC Validated? YES +Cl - CLEAR BKGD
[2023-07-03 20:46] LABS: Pregnancy, Urine Negative Negative
[2023-07-03 20:47] LABS: Amorphous Sediment 1+ URATE; Red Blood Cells-Urine 5-10 SEEN /hpf (0-5); Squamous Epithelial Cells - UA 0-5 SEEN /hpf (5-10)
[2023-07-03 22:16] VITALS: BP 144/97; PULSE 98; RESP 18; TEMP 36.8; O2SAT 94
== END 2023-07-03 22:17 | disposition home or self-care (01) ==
PROVIDERS: Nurse Practitioner; Emergency Provider Emergency Medicine; PCP Nurse Practitioner; Visit Provider Emergency Medicine
DX: K52.9 Noninfective gastroenteritis and colitis, unspecified (principal); I10 Essential (primary) hypertension; F17.210 Nicotine dependence, cigarettes, uncomplicated; E87.6 Hypokalemia; R11.2 Nausea with vomiting, unspecified
CPT/HCPCS: 74177; 80053; 81001; 81025; 83690; 85025; 96361; 96365; 96372; 96374; 96375; 96376; 99283; J7030; J7040; Q9967; A4216; J2405

== ENCOUNTER 2023-09-13 17:01 | Emergency (ER) | payer MEDICAID, SELFPAY ==
[2023-09-13 17:02] VITALS: BP 132/89; PULSE 88; PULSE 90; RESP 16; TEMP 36.4; O2SAT 96
--- NOTE | 2023-09-13 17:12 | EX.ED.DYSGE1 ---
HPI <KENZIE Barba - Last Filed: 09/13/23 18:07> History of Present Illness Chief Complaint: Lower Extremity Injury Narrative Narrative: 42-year-old female was wearing crocs and stepped on an uneven surface and rolled her right ankle last night. She was able to bear weight but after waking up today that it feels worse and hurts in the medial ankle. No numbness or tingling. PFSH <KENZIE Barba - Last Filed: 09/13/23 18:07> PFSH Medical History Arthritis Back pain Drug abuse and dependence Hypertension Injury of back Injury of head and neck Kidney stones Left shoulder pain Migraine headache Normal stress echocardiogram SLAP lesion of left shoulder Smoker Thyroid disease Wears glasses Home Medications ?Medication ?Instructions ?Recorded ?Last Taken ?Type albuterol sulfate 90 mcg/actuation 2 puff inhalation Q4H PRN PRN 05/14/19 Unknown Rx aerosol inhaler Wheezing ##1 ibuprofen 800 mg tablet 800 mg PO Q8H PRN Pain 06/12/22 06/26/22 History lisinopril 20 mg tablet 20 mg PO DAILY 07/05/22 07/10/22 History trazodone 50 mg tablet 50 mg PO QHS 07/05/22 Unknown History dicyclomine 20 mg tablet 20 mg PO TID #30 tabs 07/03/23 Unknown Rx ondansetron 4 mg disintegrating 4 mg PO Q8H PRN PRN Nausea #20 tabs 07/03/23 Unknown Rx tablet Allergy/AdvReac Type Severity Reaction Status Date / Time codeine AdvReac Other Verified 09/13/23 17:03 lorazepam (From Ativan) AdvReac Other Verified 09/13/23 17:03 Surgical History H/O section History of cholecystectomy History of discectomy History of endometrial ablation Hx of tubal ligation [place] teeth removed Social History Smoking Status: Current every day smoker tobacco type: cigarettes and e-cigarettes Tobacco: How many years used: 15 alcohol intake: former substance use type: former substance user what type of physical activity do you participate in: yoga ROS <KENZIE Barba - Last Filed: 09/13/23 18:07> ROS ED ROS Narrative Neuro: Negative for motor/sensory dysfunction. Musc: Positive for right ankle pain. EXAM <KENZIE Barba - Last Filed: 09/13/23 18:07> Physical Exam Narrative Exam Narrative: CONST: Patient sitting in no acute distress. EYES: Normal inspection. SKIN: Color normal, no rash, warm, dry, intact. EXTREMITIES: Normal appearance of BLLE. Tender over right medial malleolus without deformity or crepitus, no tenderness of lateral posterior ankle or foot. No proximal fibular tenderness. Full range of motion, Achilles intact, normal sensation, 2+ DP pulse. NEURO: Alert and answering questions appropriately. PSYCH: Normal affect. Const Vital Signs: 09/13/23 17:02 09/13/23 17:02 Temperature 97.6 F L Temperature Source Temporal Pulse Rate 90 88 Respiratory Rate 16 16 Blood Pressure 132/89 H 132/89 H Blood Pressure Mean 103 103 Pulse Ox 96 96 Oxygen Delivery Method Room Air Room Air <Dr. Og Gonzalez MD - Last Filed: 09/13/23 18:04> Physical Exam Const Vital Signs: 09/13/23 17:02 09/13/23 17:02 Temperature 97.6 F L Temperature Source Temporal Pulse Rate 90 88 Respiratory Rate 16 16 Blood Pressure 132/89 H 132/89 H Blood Pressure Mean 103 103 Pulse Ox 96 96 Oxygen Delivery Method Room Air Room Air MDM <KENZIE Barba - Last Filed: 09/13/23 18:07> MDM MDM Narrative Medical decision making narrative: Differential: Ankle sprain versus fracture Rolled right ankle. Medial right ankle pain. No swelling or deformity, neurovascular intact. X-ray shows no acute findings. She was given crutches, Aircast, and I discussed RICE protocol. She will take [id number] analgesia. She was discharged in stable condition. I have personally performed a face to face assessment of the patient and have reviewed the NISHI Note. I performed a substantive portion of the visit including all aspects of the following. My lechuga findings include: History is 42-year-old female stepped in open van on the floor twisting her right ankle complaining of pain on the medial malleolus. No prior surgery or fracture of the right ankle in the past. She did not fall to the ground. She has no other injuries. Exam is [well-appearing 42-year-old female. Vital signs stable afebrile. HEENT, neck, heart, lung, chest wall and rib exams are all normal. Abdomen soft. Back nontender. Left lower extremity both upper extremities are unremarkable with normal range of motion are nontender. Right hip right knee nontender. Right ankle mild medial malleolus swelling. Mild tenderness. No deformity. Lateral malleolus nontender nonswollen. Normal dorsi plantarflexion. Achilles tendon intact. Normal DP pulse. Able to wiggle her toes. Foot normal sensation.] Medical Decision Making [right ankle x-ray 3 views interpreted by myself shows no acute abnormality. Treated as an ankle sprain. Aircast, crutches, Tylenol Motrin and off work 2 days. 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 No evidence fracture, malalignment or focal bony or joint space abnormality. Electronically Signed: Louis Cardenas MD at 18:02 EDT , <Dr. Og Gonzalez MD - Last Filed: 09/13/23 18:04> [facility] Narrative Medical decision making narrative: I have personally performed a face to face assessment of the patient and have reviewed the NISHI Note. I performed a substantive portion of the visit including all aspects of the following. My lechuga findings include: History is 42-year-old female stepped in open van on the floor twisting her right ankle complaining of pain on the medial malleolus. No prior surgery or fracture of the right ankle in the past. She did not fall to the ground. She has no other injuries. Exam is [well-appearing 42-year-old female. Vital signs stable afebrile. HEENT, neck, heart, lung, chest wall and rib exams are all normal. Abdomen soft. Back nontender. Left lower extremity both upper extremities are unremarkable with normal range of motion are nontender. Right hip right knee nontender. Right ankle mild medial malleolus swelling. Mild tenderness. No deformity. Lateral malleolus nontender nonswollen. Normal dorsi plantarflexion. Achilles tendon intact. Normal DP pulse. Able to wiggle her toes. Foot normal sensation.] Medical Decision Making [right ankle x-ray 3 views interpreted by myself shows no acute abnormality. Treated as an ankle sprain. Aircast, crutches, Tylenol Motrin and off work 2 days. 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 No evidence fracture, malalignment or focal bony or joint space abnormality. Electronically Signed: Louis Cardenas MD at 18:02 EDT Reading Location ID and State: [facility] / [place] Tel , Service support , Right ankle x-ray, 3 views, interpreted by myself shows no acute fracture or dislocation. Discharge Plan Triage Chief Complaint: Lower Extremity Injury ED Midlevel Provider: Ligia Hogue ED Provider: Og Gonzalez Dx/Rx/DC Orders Clinical Impression: Right ankle sprain Instructions: ED Ankle Sprain (Adult) Prescriptions: No Action albuterol sulfate 1 INHALER inhaler 2 puff inhalation Q4H PRN PRN (Reason: Wheezing) Qty: 1 0RF ibuprofen 800 mg Tablet 800 mg PO Q8H PRN (Reason: Pain) trazodone 50 mg Tablet 50 mg PO QHS lisinopril 20 mg Tablet 20 mg PO DAILY ondansetron 4 mg tablet,disintegrating 4 mg PO Q8H PRN PRN (Reason: Nausea) Qty: 20 0RF dicyclomine 20 mg tablet 20 mg PO TID Qty: 30 0RF Primary Care Provider: Lindsey Arcos [facility] Referrals: Lindsey Arcos [facility], [facility] [Primary Care Provider] - Activity Restrictions/Additional Instructions: Use the Aircast as needed to stabilize your ankle. Ice, elevate, alternate Tylenol and ibuprofen. Print Language: Slovenian
[2023-09-13] MEDS: Ibuprofen 600 MG Tablet PO (17:22)
--- NOTE | 2023-09-13 17:25 | RAD_ITS ---
INDICATION: pain EXAMINATION/TECHNIQUE: X-RAY - RIGHT XR Ankle Min 3 Views 3 VIEWS COMPARISON: No relevant prior comparison study available FINDINGS: SOFT TISSUES: No soft tissue swelling or gas. No radiopaque foreign body. BONES/JOINTS: No acute fracture or subluxation.. Normal alignment. Preservation of the joint space.. No sclerotic or destructive changes observed. RAD/Ankle min 3 Views IMPRESSION: 1. No evidence fracture, malalignment or focal bony or joint space abnormality. Electronically Signed: Louis Cardenas MD at 18:02 EDT ,
[2023-09-13 18:50] VITALS: BP 130/74; PULSE 85; RESP 18; TEMP 36.4; O2SAT 97
== END 2023-09-13 18:52 | disposition home or self-care (01) ==
LOC: ED 17:44
PROVIDERS: Emergency Provider Emergency Medicine; PCP Nurse Practitioner; Visit Provider Emergency Medicine
DX: S93.401A Sprain of unspecified ligament of right ankle, initial encounter (principal); F17.210 Nicotine dependence, cigarettes, uncomplicated; Z90.49 Acquired absence of other specified parts of digestive tract; I10 Essential (primary) hypertension; X50.1XXA Overexertion from prolonged static or awkward postures, initial encounter
CPT/HCPCS: 73610; 99284

== ENCOUNTER 2024-01-31 05:07 | Emergency (ER) | payer MEDICAID, SELFPAY ==
[2024-01-31 05:07] VITALS: BP 174/116; PULSE 97; RESP 18; TEMP 36.6; O2SAT 100; BMI 32.1
[2024-01-31] MEDS: oxyCODONE 5 MG Tablet 10 MG PO (05:34)
[2024-01-31 07:07] VITALS: BP 142/85; PULSE 90; RESP 16; TEMP 36.6; O2SAT 99
== END 2024-01-31 07:30 | disposition home or self-care (01) ==
PROVIDERS: Emergency Provider Emergency Medicine; PCP Nurse Practitioner; Visit Provider Emergency Medicine
DX: S80.02XA Contusion of left knee, initial encounter (principal); F17.210 Nicotine dependence, cigarettes, uncomplicated; M25.462 Effusion, left knee; I10 Essential (primary) hypertension; W18.49XA Other slipping, tripping and stumbling without falling, initial encounter; Y93.89 Activity, other specified; Y92.89 Other specified places as the place of occurrence of the external cause; Z79.899 Other long term (current) drug therapy; Z90.49 Acquired absence of other specified parts of digestive tract; Z98.51 Tubal ligation status; F17.290 Nicotine dependence, other tobacco product, uncomplicated
CPT/HCPCS: 73564; 99282

== ENCOUNTER 2024-06-26 18:19 | Inpatient (IN) | payer SELFPAY ==
[2024-06-26 18:20] VITALS: BP 144/110; PULSE 97; RESP 15; TEMP 36.4; O2SAT 98; BMI 30.6
--- NOTE | 2024-06-26 18:38 | CT_ITS ---
PROCEDURE: ABDOMEN/PELVIS W IV CONT ONLY 06/26/2024 REASON FOR EXAM: RIGHT UPPER QUADRANT ABDOMINAL PAIN TECHNIQUE: Abdomen and pelvis CT with intravenous contrast. Coronal and Sagittal reconstruction series were provided. PATIENT PREPARATION: Per protocol ORAL CONTRAST TYPE: None. AMOUNT: mL CONTRAST: Isovue 370 VOLUME: 97 mL Not Provided Gauge IV One or more dose reduction techniques were used (e.g., Automated exposure control, adjustment of the mA and/or kV according to patient size, use of iterative reconstruction technique. RADIATION DOSE SUMMARY: CTDlvol: 35 mGy DLP: 1004 mGycm COMPARISON: None FINDINGS: Lung bases: Mild dependent atelectasis Liver: 3 cm hypodense lesion within the hepatic dome with peripheral nodular enhancement, consistent with hemangioma. Mild periportal edema. Gallbladder: Gallbladder is surgically absent. Subtle haziness/stranding within the gallbladder fossa. Spleen: Normal size. Pancreas: Choose on Adrenals: 1.2 cm indeterminate right adrenal nodule. Left adrenal gland is unremarkable. Kidneys: Normal renal sizes. No hydronephrosis. Bladder: Decompressed urinary bladder. Reproductive Organs: Normal uterine size and contour. Ovaries are unremarkable. Bowel: Evaluation of the bowel loops are limited due to lack of oral contrast. Stomach appears grossly unremarkable. Subtle wall thickening of the duodenum. Underlying duodenitis can not be excluded. The remaining small bowel appears grossly unremarkable. No inflammatory changes of the large bowel is demonstrated. Appendix: Unremarkable Lymph nodes: No lymphadenopathy. Vasculature: Unremarkable Peritoneum / Retroperitoneum: No free air or free fluid. Bones: Superior endplate compression fracture deformity of L3 vertebral body. Degenerative changes of the spine. CT/Abdomen/Pelvis W IV Cont ONLY IMPRESSION: Status post cholecystectomy with subtle haziness/stranding of the gallbladder f kleber, please correlate clinically with recent cholecystectomy. Subtle wall thickening of the duodenum, concerning for duodenitis. 1.2 cm indeterminate right adrenal nodule, recommend MRI of the adrenal glands for further characterization. Reading [facility]
[2024-06-26] MEDS: Morphine 4 MG/ML Syringe IV (18:46)
[2024-06-26] MEDS: 0.9% Normal Saline (1000mL) 1,000 ML 999 ML IV (18:46)
[2024-06-26] MEDS: Ondansetron 4 MG/2 ML Vial IV (18:46)
[2024-06-26 18:54] LABS: Mucous, Urine 0 SEEN /hpf (<or=2+)
[2024-06-26 18:55] LABS: Glucose, Dipstick Normal (Normal); Ketone-Dipstick Negative (Negative); Leukocyte Esterase-Dipstick 25 /ul (Negative); Nitrite-Dipstick Negative (Negative); Occult Blood-Urine 150 /ul (Negative); Protein-Dipstick 30 mg/dl (Negative); Specific Gravity, Urine 1.015 (1.002-1.030); Urine Bilirubin Dipstick 3 mg/dL (Negative); Urine Urobilinogen 8 mg/dl (Normal)
--- NOTE | 2024-06-26 18:58 | EDS_ITS ---
HPI History of Present Illness Chief Complaint: Abd Pain Narrative Narrative: Chief complaint and HPI: Right upper quadrant abdominal pain. 43-year-old female with past medical history of cholecystectomy presents for evaluation of right upper quadrant abdominal pain. Patient states several days ago she developed dysuria and fevers. States she was diagnosed with a kidney infection and placed on antibiotics. The symptoms have improved. She states yesterday she developed right upper quadrant abdominal pain that has not improved. She denies any URI symptoms, chest pain, shortness of breath, emesis, diarrhea, constipation, dysuria. Denies any daily NSAID use or alcohol use. Review of systems: See HPI Medications: As listed on the chart Allergies: As listed on the chart PFSH: Per chart Vital signs: As listed on the chart. Reviewed. Physical exam: Gen: A&O x3, NAD Head: Normocephalic, atraumatic Eyes: Mild scleral icterus, conjunctiva clear, PERRL, EOMI ENT: Moist mucous membranes Neck: Trachea midline, No JVD CV: RRR, no murmurs, no peripheral edema Resp: Lungs CTA BL, no w/r/c GI: Abd soft, non-distended, tender to palpation in the epigastrium/right upper quadrant, voluntary guarding, no rebound or rigidity : No CVA tenderness Musc: Full ROM, no deformity Skin: Warm, dry Neuro: Alert, oriented, grossly intact, sensation intact Psych: Cooperative, appropriate mood and affect [facility] Medical History (Updated 06/26/24 @ 21:[address] Sushma Garay MD) Hepatitis C Drug abuse and dependence Normal stress echocardiogram Wears glasses Thyroid disease Kidney stones Injury of back Migraine headache Injury of head and neck Smoker Hypertension Home Medications ?Medication ?Instructions ?Recorded ?Last Taken ?Type albuterol sulfate 90 mcg/actuation 2 puff inhalation Q 4H PRN PRN 05/14/19 Unknown Rx aerosol inhaler Wheezing ##1 ibuprofen 800 mg tablet 800 mg PO Q8H PRN Pain 06/1206/26/22 History lisinopril 20 mg tablet 20 mg PO DAILY 07/05/2206/22 History hydrochlorothiazide 12.5 mg capsule 12.5 mg PO DAILY 1 04/01/23 Unknown History Allergy/AdvReac Type Severity Reaction Status Date / Time codeine AdvReac Other Verified 06/26/24 18:22 lorazepam (From Ativan) AdvReac Other Verified 06/26/24 18:22 Family History (Updated 06/26/24 @ 21:[address] Sushma Garay MD) Mother COPD (chronic obstructive pulmonary disease) Father COPD (chronic obstructive pulmonary disease) Heart disease Hypertension CAD (coronary artery disease) Myocardial infarction Surgical History Hx of tubal ligation History of cholecystectomy [place] teeth removed History of endometrial ablation H/O section History of discectomy Social History (Updated 06/26/24 @ 21:[address] Sushma Garay MD) household members: none Smoking Status: Current every day smoker tobacco type: cigarettes Smoking packs per day: 0.5 Smoking cigarettes per day: 10.0 and e-cigarettes Tobacco: How many years used: 15 alcohol intake: former substance use type: former substance user Date of last use: Prior IVDA, notes clean since 2021. what type of physical activity do you participate in: yoga EXAM Physical Exam Const Vital Signs: 06/26/24 18:20 06/26/24 20:19 06/26/24 21:14 Temperature 97.5 F L 98.2 F Temperature Source Temporal Pulse Rate 97 88 82 Respiratory Rate 15 16 16 Blood Pressure 144/110 H 164/106 H Blood Pressure Mean 121 125 Pulse Ox 98 98 95 Oxygen Delivery Method Room Air MDM MDM MDM Narrative Medical decision making narrative: 43-year-old female with past medical history of cholecystectomy presents for evaluation of right upper quadrant abdominal pain. Patient was recently treated for kidney infection. States the symptoms have improved. Patient has mild scleral icterus and is tender in the right upper quadrant. Differential james gnosis includes but is not limited to biliary disease, GERD, PUD, gastritis, viral illness, pancreatitis, suspect less likely appendicitis or ACS. NS bolus, morphine, Zofran, Pepcid ordered. Abdominal pain workup ordered including CT abdomen pelvis. I do not have ultrasound available. CBC without leukocytosis or anemia. BMP without SHAE or significant electrolyte abnormality. CMP shows hyperbilirubinemia and transaminitis. Total bilirubin is 4.58 this is up from June 2023 at 2. Her direct bilirubin is 3.43. She has transaminitis with AST of 1500 and an ALT of 1279. Patient's enzymes were normal in June 2023. Her alkaline phosphatase is elevated at 433. Troponin unremarkable. Lipase unremarkable. Serum negative. UA positive for UTI. Patient currently on antibiotics. CT abdomen pelvis pending. Upon speaking to the patient about her labs, she states that she has hepatitis C. She states she was diagnosed with this years ago. She is a previous IV drug abuser, last use in 2021. States she is still follows with a GI physician but she does not know who. She states that she was not treated for hepatitis C given that her viral load was 0. Will add on hepatitis labs. CT abdomen pelvis shows status post cholecystectomy with subtle haziness/stranding of the gallbladder fossa. Subtle wall thickening of the duodenum, concerning for duodenitis. A 1.2 cm indet erminate right adrenal nodule. Recommend MRI for further characterization. There is a 3 cm hypodense lesion within the [place] dome with peripheral nodular enhancement, this is with him angioma. Mild periportal edema. Zosyn ordered for duodenitis. Patient will warrant admission for further management of her hyperbilirubinemia, transaminitis, duodenitis. She was updated of all of her results and the plan for admission. She confirmed understanding. On further discussion, patient originally did not remember the medication she was placed on for her kidney infection however she now states that she has the bottle on her. It is Flagyl. I let her know that this does not treat a kidney infection. She states Oh did I say a kidney infection, that is not right, I was treated for BV. Therefore, patient was not treated for pyelonephritis or UTI. Zosyn however will cover for UTI. Urine drug screen added on given patient's history as well as change in story. Patient was discussed with the hospitalist and they accepted admission. Urine drug screen positive for amphetamines and cannabis. Hepatitis panel still pending. Impression: 1. Transaminitis 2. Hyperbilirubinemia 3. Duodenitis 4. UTI 5. History of hepatitis C secondary to IV drug abuse Lab Data Labs: Laboratory Results - last 24 hr 06/26/24 06/26/24 18:46 18:55 WBC 5.3 RBC 4.68 Hgb 13.5 Hct 40.9 MCV 87.4 MCH 28.8 MCHC 33.0 RDW Std Deviation 45.1 H RDW Coeff of Meli 14.0 Plt Count 192 MPV 9.5 Immature Gran % (Auto) 0.200 Neut % (Auto) 46.7 L Lymph % (Auto) 36.6 [place] % (Auto) 12.6 H Eos % (Auto) 2.4 Baso % (Auto) 1.5 H Absolute Neuts (auto) 2.5 Absolute Lymphs (auto) 1.95 Nucleated RBC % 0 Platelet Estimate ADEQUATE RBC Morphology NORM C+C Sodium 138 Potassium 4.1 Chloride 101 Carbon Dioxide 29.0 Anion Gap 8 BUN 12 Creatinine 0.66 L Estim Creat Clear Calc 114.85 Est GFR (MDRD) Non-Af 110 BUN/Creatinine Ratio 17.8 Glucose 105 H Calcium 9.0 Total Bilirubin 4.58 H Direct Bilirubin 3.43 H AST 1500 H ALT 1279 H Alkaline Phosphatase 433 H Troponin T High Sens 13 Total Protein 7.0 Albumin 3.4 L Globulin 3.6 Lipase 62 Serum , Qual NEGATIVE Urine Color DARK YELLOW Urine Clarity Cloudy Urine pH 8.0 Ur Specific Jean 1.015 Urine Protein 30 H Urine Glucose (UA) Normal Urine Ketones Negative Urine Occult Blood 150 H Urine Nitrite Negative Urine Bilirubin 3 H Urine Urobilinogen 8 H Ur Leukocyte Esterase 25 H Urine RBC 5-10 SEEN Urine WBC 0-5 SEEN Ur Squamous Epith Cells 0-5 SEEN Amorphous Sediment 2+ Urine Bacteria 4+ Urine Mucus 0 SEEN Urine Opiates Screen NEGATIVE U Buprenorphine Qual NEGATIVE Ur Oxycodone Screen NEGATIVE Urine Methadone Screen NEGATIVE Urine Fentanyl Screen NEGATIVE Ur Barbiturates Screen NEGATIVE Ur Phencyclidine Scrn NEGATIVE Ur Amphetamines Screen PRESUMPTIVE POSITIVE U Benzodiazepines Scrn NEGATIVE Urine Cocaine Screen NEGATIVE U Cannabinoids Screen PRESUMPTIVE POSITIVE Radiography Diagnostic Testing: Clinical Impression(s) from Imaging Studies Abdomen/Pelvis CT 06/26/24 18:38 IMPRESSION: Status post cholecystectomy with subtle haziness/stranding of the gallbladder fossa, please correlate clinically with recent cholecystectomy. Subtle wall thickening of the duodenum, concerning for duodenitis. 1.2 cm indeterminate right adrenal nodule, recommend MRI of the adrenal glands for further characterization. Reading Location: [facility] Discharge Plan Disposition Disposition: Acute Care Hospital [facility] Discharge Date/Time: 06/26/24 21:45
[2024-06-26 18:59] LABS: Color, Urine DARK YELLOW (Yellow); Urine Clarity Cloudy (Clear)
[2024-06-26 19:01] LABS: Absolute Lymphocyte Count 1.95 X10^3/uL (0.83-4.51); Absolute Neutrophil Count 2.5 X10^3/uL (2.0-7.7); Basophil# 0.08 X10^3/uL; Basophil% 1.5 % (0-1); Eosinophil# 0.13 X10^3/uL; Eosinophils% 2.4 % (0-5); Hematocrit 40.9 % (37-47); Hemoglobin 13.5 g/dL (12.0-15.0); Lymphocyte # 1.95 X10^3/ul (0.83-4.51); Lymphocyte % 36.6 % (19-41); Mean Corpuscular Hgb 28.8 pg (27.0-32.0); Mean Corpuscular Volume 87.4 fL (81-99); Mean Platelet Vol. 9.5 fl (6.2-12.0); Monocyte# 0.67 X10^3/uL; Monocyte% 12.6 % (0-10); NRBC Flagged by Analyzer 0 % (0-5); Neutrophil # 2.49 X10^3/uL (2.7-7.7); Neutrophil % 46.7 % (47-70); POSITIVE MORPHOLOGY YES; Platelet Count 192 K/mm3 (150-450); RBC Distribution Width SD 45.1 fl (35.1-43.9); Red Blood Count 4.68 M/mm3 (4.2-5.4); White Blood Count 5.3 K/mm3 (4.4-11.0)
[2024-06-26 19:03] LABS: Amorphous Sediment 2+; Red Blood Cells-Urine 5-10 SEEN /hpf (0-5); Squamous Epithelial Cells - UA 0-5 SEEN /hpf (5-10); White Blood Cells 0-5 SEEN /hpf (0-5)
[2024-06-26 19:04] LABS: Bacteria 4+ /hpf (None Seen)
[2024-06-26 19:19] LABS: Internal QC Validated? YES +Cl - CLEAR BKGD; Record Kit Lot#, Serum Preg. 899023
[2024-06-26 19:20] LABS: Lipase 62 U/L (13-75); Troponin T High Sensitivity 13 ng/L (<=14)
[2024-06-26 19:23] LABS: Pregnancy, Serum, hCG Quali. NEGATIVE Negative
[2024-06-26 19:24] LABS: Differential Indicated SCAN CRITERIA MET
[2024-06-26 19:25] LABS: Platelet Estimate ADEQUATE (ADEQ); Red Cell Morphology NORM C+C NORMAL (NORM C&C)
[2024-06-26] MEDS: Famotidine 200 MG/20 ML MDV 20 MG in 0.9% Normal Saline (Pres. free 8 ML 300 MG IV (19:29)
[2024-06-26 19:31] LABS: AST(SGOT) 1500 U/L (<=31); Alanine Aminotransfer ALT/SGPT 1279 U/L (<=34); Albumin, Serum 3.4 g/dL (3.5-5.0); Alkaline Phosphatase 433 U/L (35-104); Anion Gap 8 (5-15); BUN 12 mg/dL (4-19); BUN/Creat Ratio 17.8 RATIO (10-20); Bilirubin, Direct 3.43 mg/dL (0.00-0.30); Chloride 101 mmol/L (98-108); Creatinine, Serum 0.66 mg/dL (0.70-1.20); EST Glomerular Filtration Rate 110 (>60); Estimated Creatinine Clearance 114.85 ml/min (50-250); Globulin 3.6 g/dL (2.2-4.2); Glucose 105 mg/dL (70-99); Potassium 4.1 mmol/L (3.3-5.1); Sodium Level 138 mmol/L (133-145); Total Bilirubin 4.58 mg/dL (0.00-1.30)
[2024-06-26 20:19] VITALS: PULSE 88; RESP 16; O2SAT 98
[2024-06-26 21:14] VITALS: BP 164/106; PULSE 82; RESP 16; TEMP 36.8; O2SAT 95
[2024-06-26] MEDS: Piperacil/Tazobactam 3.375 GM in 0.9% Normal Saline (50mL MB+) 50 ML IV (21:18)
--- NOTE | 2024-06-26 21:23 | HP.PCM.HOS_ITS ---
HPI - General General Date of Admission: 06/26/24 Date of Service: 06/26/24 Chief Complaint: RUQ pain. HPI Narrative The patient is a 43 y/o F w/ PMHx: Former polysubstance abuse w/ Hepatitis C, Tobacco use, Obesity, HTN who presents to the [facility] ED on 06/26/2024 with history of right upper quadrant abdominal pain with recent history of purported dysuria, fevers diagnosed with an infection and placed on antibiotics at that time with symptom improvement (initially stating it was a UTI, but upon abx review if was 06/17/2024 Flagyl prescription and she then confirmed it was actually for BV); however. it was yesterday that she started developing the right upper quadrant pain, decreased appetite, nausea without emesis and chills but no fever or diarrhea and it has been persistent not improving since prompted ED evaluation to be cautious. She notes her pain at rest while laying flat 4-10 in severity, becomes more sharp and stabbing/severe rating it 10 out of 10 when she moves about. She notes that the pain was significant even going over bumps while driving to the ED. Workup in the ED included T97.5, heart rate 97, BP 144/110, respiratory rate 15, 98% on room air, CBC with WBC 5.3, hemoglobin 13.5, platelet 190 without shift, CMP with BUN/creatinine 12/0.66, glucose 105, T. bili 4.58, T. bili 3.43, AST/LT 1500/1279, alk phos 433, lipase 62, serum negative, troponin 11, urine noted to be cloudy, dark yellow, specifically 1.015, protein 30, occult blood 150, negative nitrite, leukocyte esterase 25 with urine RBCs 5-10 with 4+ bacteria reported, urine culture pending per ED, CT abdomen and pelvis with IV contrast only with status postcholecystectomy with subtle haziness/stranding in the gallbladder fossa, subtle wall thickening in the duodenum, 1.2 cm indeterminate right adrenal nodule. In the ED patient ministered 1 L normal saline, famotidine 20 mg IV x 1, morphine 4 mg IV x 1, Zofran 4 mg IV x 1, Zosyn 3.375 g IV x 1. [facility] Medical History (Updated 06/26/24 @ 21:[address] Sushma Garay MD) Hepatitis C Drug abuse and dependence Normal stress echocardiogram Wears glasses Thyroid disease Kidney stones Injury of back Migraine headache Injury of head and neck Smoker Hypertension Home Medications ?Medication ?Instructions ?Recorded ?Last Taken ?Type albuterol sulfate 90 mcg/actuation 2 puff inhalation Q 4H PRN PRN 05/14/19 Unknown Rx aerosol inhaler Wheezing ##1 ibuprofen 800 mg tablet 800 mg PO Q8H PRN Pain 06/1206/26/22 History lisinopril 20 mg tablet 20 mg PO DAILY 07/05/2206/22 History hydrochlorothiazide 12.5 mg capsule 12.5 mg PO DAILY 1 04/01/23 Unknown History Allergy/AdvReac Type Severity Reaction Status Date / Time codeine AdvReac Other Verified 06/26/24 18:22 lorazepam (From Ativan) AdvReac Other Verified 06/26/24 18:22 Family History (Updated 06/26/24 @ 21:[address] Sushma Garay MD) Mother COPD (chronic obstructive pulmonary disease) Father COPD (chronic obstructive pulmonary disease) Heart disease Hypertension CAD (coronary artery disease) Myocardial infarction Surgical History Hx of tubal ligation History of cholecystectomy [place] teeth removed History of endometrial ablation H/O section History of discectomy Social History (Updated 06/26/24 @ 21:[address] Sushma Garay MD) household members: none Smoking Status: Current every day smoker tobacco type: cigarettes Smoking packs per day: 0.5 Smoking cigarettes per day: 10.0 and e-cigarettes Tobacco: How many years used: 15 alcohol intake: former substance use type: former substance user Date of last use: Prior IVDA, notes clean since 2021. what type of physical activity do you participate in: yoga ROS ROS Narrative Admission Review of Systems: CONSTITUTIONAL: No weight loss, fever, + chills, weakness or fatigue. HEENT: Eyes: No visual loss, blurred vision, double vision or yellow sclerae. Ears, Nose, Throat: No hearing loss, sneezing, congestion, runny nose or sore throat. SKIN: No rash or itching, lesions, wounds. CARDIOVASCULAR: No chest pain, chest pressure or chest discomfort, palpitations, edema, orthopnea, syncopal events. RESPIRATORY: No shortness of breath, cough or sputum, wheezing, hemoptysis. GASTROINTESTINAL: + anorexia, nausea, abdominal pain. No vomiting, diarrhea, melena, BRBPR. GENITOURINARY: No dysuria, frequency, urgency or retention. NEUROLOGICAL: No headache, dizziness, syncope, paralysis, ataxia, numbness or tingling in the extremities, focal weakness, change in bowel or bladder control, seizure. MUSCULOSKELETAL: + muscle, back pain, joint pain or stiffness. HEMATOLOGIC: No anemia, bleeding or bruising. LYMPHATICS: No enlarged nodes. No history of splenectomy. PSYCHIATRIC: No history of depression or anxiety. ENDOCRINOLOGIC: No reports of sweating, cold or heat intolerance. No polyuria or polydipsia. ALLERGIES: No history of asthma, hives, eczema or rhinitis. Vital Signs Vital Signs Vital Signs: 06/26/24 18:20 06/26/24 20:19 06/26/24 21:14 Temperature 97.5 F L 98.2 F Temperature Source Temporal Pulse Rate 97 88 82 Respiratory Rate 15 16 16 Blood Pressure 144/110 H 164/106 H Blood Pressure Mean 121 125 Pulse Ox 98 98 95 Oxygen Delivery Method Room Air Weight Weight: 184 lb Body Mass Index (BMI) 30.6 Physical Exam Narrative Physical Examination: General: Awake, alert, oriented x 3 and cooperative, laying in the bed, fatigued, no acute distress. Skin: Mildly jaundiced appearance, normal turgor, mild scleral icterus evident, no cyanosis. HEENT: AT/NC, EOMI, PERRLA, moderately dry MM, no carotid bruits or JVD noted. Lungs: CTA bilaterally, moderate effort, mild decrease BL bases, no rales, ronchi or wheezing. Heart: Regular rate and rhythm; no gallop, rub audible. Abdomen: Soft, with stethoscope and distraction pain mild to the right upper quadrant and epigastric palpation but with manual notable right upper quadrant discomfort and voluntary guarding, no marked distention evident, mildly hyperactive BS, difficult to discern HSM given pain with manual evaluation. Extremities: No cyanosis, clubbing, or edema. Neurological: Patient awake, alert, oriented as noted, cognitive function intact; pupils equally reactive to light and accommodation, cranial nerves grossly normal, moving all 4 extremities, no focal deficits, strength moderately to severely globally decreased secondary to acute presentation. Psychiatric: Affect appears flat, fatigued, no acute evidence of depressive or anxiety feelings. Results Lab / Micro Data 06/26/24 18:55 06/26/24 18:55 Labs: Laboratory Results - last 24 hr 06/26/24 18:46: Urine Color DARK YELLOW, Urine Clarity Cloudy, Urine pH 8.0, Ur Specific [place] 1.015, Urine Protein 30 H, Urine Glucose (UA) Normal, Urine Ketones Negative, Urine Occult Blood 150 H, Urine Nitrite Negative, Urine Bilirubin 3 H, Urine Urobilinogen 8 H, Ur Leukocyte Esterase 25 H, Urine RBC 5- 10 SEEN, Urine WBC 0-5 SEEN, Ur Squamous Epith Cells 0-5 SEEN, Amorphous Sediment 2+, Urine Bacteria 4+, Urine Mucus 0 SEEN 06/26/24 18:55: WBC 5.3, RBC 4.68, Hgb 13.5, Hct 40.9, MCV 87.4, MCH 28.8, MCHC 33.0, RDW Std Deviation 45.1 H, RDW Coeff of Meli 14.0, Plt Count 192, MPV 9.5, Immature Gran % (Auto) 0.200, Neut % (Auto) 46.7 L, Lymph % (Auto) 36.6, [place] % (Auto) 12.6 H, Eos % (Auto) 2.4, Baso % (Auto) 1.5 H, Absolute Neuts (auto) 2.5, Absolute Lymphs (auto) 1.95, Nucleated RBC % 0, Platelet Estimate ADEQUATE, RBC Morphology NORM C+C, Sodium 138, Potassium 4.1, Chloride 101, Carbon Dioxide 29.0, Anion Gap 8, BUN 12, Creatinine 0.66 L, Estim Creat Clear Calc 114.85, Est GFR (MDRD) Non-Af 110, BUN/Creatinine Ratio 17.8, Glucose 105 H, Calcium 9.0, T otal Bilirubin 4.58 H, Direct Bilirubin 3.43 H, AST 1500 H, ALT 1279 H, Alkaline Phosphatase 433 H, Troponin T High Sens 13, Total Protein 7.0, Albumin 3.4 L, Globulin 3.6, Lipase 62, Serum , Qual NEGATIVE Imaging Radiology Impression Abdomen/Pelvis CT 06/26/24 18:38 IMPRESSION: Status post cholecystectomy with subtle haziness/stranding of the gallbladder fossa, please correlate clinically with recent cholecystectomy. Subtle wall thickening of the duodenum, concerning for duodenitis. 1.2 cm indeterminate right adrenal nodule, recommend MRI of the adrenal glands for further characterization. [facility] Assessment & Plan Assessment/Plan (1) Hyperbilirubinemia: (2) Transaminitis: PLAN: Plan The patient is a 43 y/o F w/ PMHx: Former polysubstance abuse w/ Hepatitis C, Tobacco use, Obesity, HTN who presents to the [facility] ED on 06/26/2024 with history of right upper quadrant abdominal pain with recent history of purported dysuria, fevers diagnosed with an infection and placed on antibiotics at that time with symptom improvement (initially stating it was a UTI, but upon abx review if was 06/17/2024 Flagyl prescription and she then confirmed it was actually for BV); however. it was yesterday that she started developing the right upper quadrant pain, decreased appetite, nausea without emesis and chills but no fever or diarrhea and it has been persistent not improving since prompted ED evaluation to be cautious. #1. Acute right upper quadrant pain, possibly acute duodenitis with significant hyperbilirubinemia, transaminitis complicated by previous history of hepatitis C without prior treatment: Admission CMP with T. bili 4.58, direct bili 3.43, AST/ALT 1500/1279, alk phos 433, CT abdomen pelvis with IV contrast only with subtle haziness/stranding of the gallbladder fossa status post previous cholecystectomy. Gastroenterology currently not listed city constable today, but will be available city constable on Friday. Will maintain on IV PPI on clears until improved and able to transition. Procalcitonin requested. #2. Possible Acute Urinary Tract Infection with persistent bacteria of unclear significance, but no specific pyuria noted (recent treatment had been for BV, not UTI of note): UA upon ED evaluation remarkable primarily with 4+ bacteria however there is negative nitrite and only 25 leukocyte esterase with no marked urine WBCs, pending UCx, continue IVFs, monitor I/Os, continue IV Zosyn given #1 w/ transition as able pending sensitivities and speciation. #3. Indeterminant right adrenal nodule: CT abdomen pelvis with a 1.2 cm indeterminate right adrenal nodule, recommend follow-up outpatient. #4. Tobacco Abuse: Encouraged cessation, inpatient consultation per RT, NR if desired. #5. Hypertension: Continue home regimen including lisinopril, temporally hold hydrochlorothiazide given hydration as noted, add back once appropriate, PRN hydralazine. #6. Former polysubstance abuse with known hepatitis C: Encourage clean status, given presentation be cautious will obtain hepatitis panel and hepatitis C viral load, UDS requested. She notes last IV drug abuse history 2021. She reports following with gastroenterology outpatient but is unclear who. She denies having been treated for hepatitis C but her previous viral load had been 0. #7. Bacterial vaginosis: Given current presentation with significant hyperbilirubinemia, transaminitis will temporarily hold Flagyl regimen, may need to consider repeat course once liver function is improved to assure avoid risk of neurotoxicity and encephalopathy. #8. Remote chart reported history of thyroid disease, unclear specifics: Reportedly previously on medication but uncertain, will obtain TSH and free T4 to be cautious. #9. DVT prophylaxis: SCDs, coags requested given significant liver dysfunction. Charges/Coding Visit Charges Inpatient E&M: 78098 Init Hosp L3
[2024-06-26 21:53] VITALS: BMI 30.1
[2024-06-26 22:00] VITALS: BP 151/104; PULSE 76; RESP 18; TEMP 36.6; O2SAT 98
[2024-06-26 22:07] LABS: Amphetamine Urine PRESUMPTIVE POSITIVE (<1000 ng/mL); Barbiturate Urine NEGATIVE (< 200 ng/mL); Benzodiazepine Urine NEGATIVE (< 200 ng/mL); Buprenorphine Urine NEGATIVE (< 200 ng/mL); Cocaine Urine NEGATIVE (< 300 ng/mL); Fentanyl, Urine NEGATIVE; Methadone Urine NEGATIVE (< 300 ng/mL); Opiates Urine NEGATIVE (< 300 ng/mL); Oxycodone, Urine NEGATIVE (< 100 ng/mL); PCP Urine NEGATIVE (< 25 ng/mL); THC Urine PRESUMPTIVE POSITIVE (< 50 ng/mL)
[2024-06-26 23:00] LABS: International Normalized Ratio 1.2; Prothrombin Time (Protime)PT. 15.8 SECONDS (11.7-14.9)
[2024-06-26 23:01] LABS: Partial Thromboplast Time 32.4 Seconds (24.1-36.2)
[2024-06-26] MEDS: 0.9% Normal Saline (1000mL) 1,000 ML 100 ML IV (23:43)
[2024-06-26] MEDS: Pantoprazole Sodium 40 MG in 0.9% Normal Saline (100mL MB+) 100 ML 330 MG IV (23:44)
[2024-06-27] VITALS (12 sets, daily range): BP systolic 135–196; BP diastolic 83–125; PULSE 70–103; RESP 16–18; TEMP 36.3–36.9; O2SAT 94–99; BMI 30.2
[2024-06-27] MEDS: Ondansetron 4 MG/2 ML Vial IV (02:35)
[2024-06-27] MEDS: HYDROmorphone 0.5 MG/0.5 ML SYRINGE IV (02:50)
[2024-06-27] MEDS: hydrALAZINE 20 MG/ML Vial 10 MG IV ×2 (05:13→09:34)
--- NOTE | 2024-06-27 07:23 | PCM.PN.HOSP ---
Reason for Visit Reason for Visit: Diagnoses Other disorders of bilirubin metabolism (06/26/24) Elevation of levels of liver transaminase levels (06/26/24) Objective Data Objective Data Vital Signs: Vital Signs Temp Pulse Resp BP Pulse Ox O2 Del Method 98.4 F 78 18 167/110 H 94 Room Air 06/27/24 05:07 06/27/24 05:13 06/27/24 05:07 06/27/24 05:13 06/27/24 05:07 06/27/24 05:17 Oxygen Delivery Method Room Air Weight: 183 lb 10.321 oz Body Mass Index (BMI) 30.2 Intake & Output: Intake and Output for Last 24 Hours 06/25/24 06/26/24 06/27/24 23:59 23:59 23:59 Intake Total 1061.67 / 1061.67 410 / 410 Balance 1061.67 / 1061.67 410 / 410 Lab / Micro Data 06/27/24 05:28 06/27/24 05:28 Labs: Laboratory Results - last 24 hr 06/26/24 18:46: Urine Color DARK YELLOW, Urine Clarity Cloudy, Urine pH 8.0, Ur Specific [place] 1.015, Urine Protein 30 H, Urine Glucose (UA) Normal, Urine Ketones Negative, Urine Occult Blood 150 H, Urine Nitrite Negative, Urine Bilirubin 3 H, Urine Urobilinogen 8 H, Ur Leukocyte Esterase 25 H, Urine RBC 5-10 SEEN, Urine WBC 0-5 SEEN, Ur Squamous Epith Cells 0-5 SEEN, Amorphous Sediment 2+, Urine Bacteria 4+, Urine Mucus 0 SEEN, Urine Opiates Screen NEGATIVE, U Buprenorphine Qual NEGATIVE, Ur Oxycodone Screen NEGATIVE, Urine Methadone Screen NEGATIVE, Urine Fentanyl Screen NEGATIVE, Ur Barbiturates Screen NEGATIVE, Ur Phencyclidine Scrn NEGATIVE, Ur Amphetamines Screen PRESUMPTIVE POSITIVE, U Benzodiazepines Scrn NEGATIVE, Urine Cocaine Screen NEGATIVE, U Cannabinoids Screen PRESUMPTIVE POSITIVE 06/26/24 18:55: WBC 5.3, RBC 4.68, Hgb 13.5, Hct 40.9, MCV 87.4, MCH 28.8, MCHC 33.0, RDW Std Deviation 45.1 H, RDW Coeff of Meli 14.0, Plt Count 192, MPV 9.5, Immature Gran % (Auto) 0.200, Neut % (Auto) 46.7 L, Lymph % (Auto) 36.6, [place] % (Auto) 12.6 H, Eos % (Auto) 2.4, Baso % (Auto) 1.5 H, Absolute Neuts (auto) 2.5, Absolute Lymphs (auto) 1.95, Nucleated RBC % 0, Platelet Estimate ADEQUATE, RBC Morphology NORM C+C, Sodium 138, Potassium 4.1, Chloride 101, Carbon Dioxide 29.0, Anion Gap 8, BUN 12, Creatinine 0.66 L, Estim Creat Clear Calc 114.85, Est GFR (MDRD) Non-Af 110, BUN/Creatinine Ratio 17.8, Glucose 105 H, Calcium 9.0, Total Bilirubin 4.58 H, Direct Bilirubin 3.43 H, AST 1500 H, ALT 1279 H, Alkaline Phosphatase 433 H, Troponin T High Sens 13, Total Protein 7.0, Albumin 3.4 L, Globulin 3.6, Lipase 62, Procalcitonin 0.10, Serum , Qual NEGATIVE 06/26/24 22:36: PT 15.8 H, INR 1.2, APTT 32.4 Radiography Diagnostic Testing: Radiology Impression Abdomen/Pelvis CT 06/26/24 18:38 IMPRESSION: Status post cholecystectomy with subtle haziness/stranding of the gallbladder fossa, please correlate clinically with recent cholecystectomy. Subtle wall thickening of the duodenum, concerning for duodenitis. 1.2 cm indeterminate right adrenal nodule, recommend MRI of the adrenal glands for further characterization. Reading [facility] Physical Exam Narrative Seen and examined. History was taken directly from the patient. Patient had dysuria, increased frequency/urgency suggestive of UTI about 06/18 and went to PCP and gave her metronidazole which seems probably for bacterial vaginosis. She denied she had any vaginal discharge and chlamydia and gonorrhea were negative. She took nausea for 2 days and started having nausea and vomiting therefore self stopped. She said her other family members were also sick. Then she started having RUQ abdominal pain, fever chills since 06/23. She states her abdominal pain was 8-9/10 intensity which was persistent but sometimes feels like in waves come and go. Denies any radiation to the shoulder. Food does not make any difference to the abdominal pain. Denies any change in bowel movement. She came to ED with continued fever and chills and RUQ pain. She had cholecystectomy in 2005 but denies any recent EGD/ERCP or other endoscopic evaluation. She was taking ibuprofen for last 3 to 4 days, 800 mg/day. Denies alcohol use. She uses marijuana. Past substance use, IV methadone plus heroin but quit in 2021. She stated she has chronic hep C and she cleared spontaneously without treatment. Denies any herbal or [id number] medication Physical exam General: Alert, Oriented x3, Cooperative HEENT: Atraumatic, PERRLA, EOMI, Normocephalic Oral: No Gingival or Mucosal Lesions/ Ulcerations Neck: Supple, No JVD, Negative Carotid Bruits Chest wall/Lungs: Air entry diminished in bilateral lung bases. No crepitation/rhonchi Cardiovascular: Regular rate, Regular Rhythm, Normal S1, Normal S2, No M/G/R Abdomen: Superficial tenderness in RUQ with voluntary guarding, no hepatomegaly/splenomegaly. No palpable ascites but patient has voluntary guarding : No dysuria. No renal angle tenderness. No suprapubic tenderness. Extremities: No edema, Capillary Refill Less than 3 Seconds Skin: No rashes, No breakdown Musculoskeletal: No Tenderness to Palpation of Joints or Extremities Neurological: Cranial nerves II-XII grossly intact, DTR 2+/4. No acute focal neurological deficit. Psych/Mental Status: Normal Affect, Appropriate. Assessment & Plan Assessment/Plan (1) Hyperbilirubinemia: (2) Transaminitis: PLAN: Plan The patient is a 43 y/o F was admitted with RUQ abdominal pain, nausea without vomiting and fever for 3 days. Prior to that she complained of dysuria and PCP found BV therefore took metronidazole for 2 days and then self stopped for nausea/vomiting. Denies prior liver disease except cholecystectomy #1. Acute RUQ pain with acute liver injury, exact etiology unclear: Detailed history taken along with review of labs and imaging. CT abdomen/pelvis with IV contrast individually reviewed and shows about 3 cm of hemangioma in the dome of liver with peripheral enhancement and significant periportal edema. Status postcholecystectomy. Subtle stranding/haziness within the GB fossa. Liver chemistry shows mainly direct hyperbilirubinemia, TB 5.83, DB 4.51, high ALT AST about 1500s, ALP 433, worse than yesterday. Serum test negative. Exact etiology unclear of acute liver injury, periportal edema as noticed in CT abdomen but possible differential includes possible cholangitis, CBD obstruction with duodenal wall thickening, portal vein infection/pylephlebitis or vascular disorder of liver, DILI, viral hepatitis or other autoimmune disease. Right upper quadrant sonogram including spleen ordered. GI consulted. HCVRNA viral load ordered as patient is stated, she had cleared hep C. Platelet count has decreased although in normal range from baseline 338-195. INR 1.2. Blood cultures x 2 ordered. Patient empirically started on IV Zosyn. Labs for viral hepatitis, autoimmune markers ordered. I did not think patient had hypotension or hypoperfusion. #2. Abnormal UA: 06/27: UA looks benign, negative nitrite, LE 25, WBC 0-5 cells, 4+ bacteria. Urine culture pending #3. Indeterminant right adrenal nodule: CT abdomen pelvis with a 1.2 cm indeterminate right adrenal nodule, recommend follow-up outpatient. #4. Tobacco Abuse: Encouraged cessation, nicotine patch offered #5. Hypertension: Continue home regimen including lisinopril, on IV hydralazine. Monitor BP. BP is high 177/116. #6. Former polysubstance abuse with known hepatitis She notes last IV drug abuse history 2021. Stated she has spontaneously cleared hep C with viral test. Repeat HCVRNA quantitative ordered She reports following with gastroenterology outpatient but is unclear who. #7. Bacterial vaginosis: She self discontinued metronidazole after 2 days because of side effects nausea and vomiting. #8. Unclear thyroid disease: TSH 5.87 hide normal, free T4 normal. Possible subclinical hypothyroidism. Does not need any treatment but monitor thyroid function test after 6 weeks #9. DVT prophylaxis: SCDs. Charges/Coding Addendum Addendum: Total time of the visit including total time spent in counseling or coordination of care, (more than 50% of the total time, spent in obtaining medical information from nurses and other ancillary care providers ,explaining to the patient about labs, imaging, diagnosis and management of active complex medical conditions), detailed history taking, review of medications, review of labs and imaging is 45 minutes. Visit Charges Inpatient E&M: 84176 [facility] Hosp L3
[2024-06-27 08:15] LABS: Absolute Lymphocyte Count 1.69 X10^3/uL (0.83-4.51); Absolute Neutrophil Count 3.3 X10^3/uL (2.0-7.7); Basophil# 0.06 X10^3/uL; Basophil% 1.1 % (0-1); Eosinophil# 0.07 X10^3/uL; Eosinophils% 1.2 % (0-5); Hematocrit 40.7 % (37-47); Hemoglobin 13.5 g/dL (12.0-15.0); Lymphocyte # 1.69 X10^3/ul (0.83-4.51); Lymphocyte % 29.9 % (19-41); Mean Corp Hgb Conc 33.2 g/dL (32-36); Mean Corpuscular Hgb 29.5 pg (27.0-32.0); Mean Corpuscular Volume 88.9 fL (81-99); Mean Platelet Vol. 10.2 fl (6.2-12.0); Monocyte# 0.56 X10^3/uL; Monocyte% 9.9 % (0-10); NRBC Flagged by Analyzer 0 % (0-5); Neutrophil # 3.26 X10^3/uL (2.7-7.7); Neutrophil % 57.5 % (47-70); POSITIVE MORPHOLOGY YES; Platelet Count 195 K/mm3 (150-450); RBC Distribution Width CV 14.3 % (11.6-14.6); RBC Distribution Width SD 46.5 fl (35.1-43.9); Red Blood Count 4.58 M/mm3 (4.2-5.4); White Blood Count 5.7 K/mm3 (4.4-11.0)
[2024-06-27 08:17] LABS: Differential Indicated SCAN CRITERIA MET
[2024-06-27 08:42] LABS: AST(SGOT) 1700 U/L (<=31); Alanine Aminotransfer ALT/SGPT 1383 U/L (<=34); Albumin, Serum 3.1 g/dL (3.5-5.0); Alkaline Phosphatase 398 U/L (35-104); Anion Gap 10 (5-15); BUN 13 mg/dL (4-19); BUN/Creat Ratio 20.3 RATIO (10-20); Bilirubin, Direct 4.51 mg/dL (0.00-0.30); Calcium,Total 8.5 mg/dL (7.6-11.0); Carbon Dioxide 24.7 mmol/L (21.0-32.0); Chloride 102 mmol/L (98-108); Creatinine, Serum 0.63 mg/dL (0.70-1.20); EST Glomerular Filtration Rate 112 (>60); Globulin 3.4 g/dL (2.2-4.2); Glucose 99 mg/dL (70-99); Potassium 3.9 mmol/L (3.3-5.1); Protein, Total 6.5 g/dL (5.9-8.4); Sodium Level 137 mmol/L (133-145); Total Bilirubin 5.83 mg/dL (0.00-1.30)
[2024-06-27] MEDS: proCHLORPERazine 10 MG/2 ML Vial 5 MG IV (09:02)
[2024-06-27] MEDS: Pantoprazole Sodium 40 MG in 0.9% Normal Saline (100mL MB+) 100 ML 330 MG IV (09:03)
[2024-06-27 09:09] LABS: Platelet Estimate A (ADEQ); Polychromasia 1+
[2024-06-27 09:23] LABS: CRP < 3.00 mg/L (0.0-3.0)
[2024-06-27] MEDS: Piperacil/Tazobactam 3.375 GM in 0.9% Normal Saline (50mL MB+) 50 ML IV ×3 (09:33→22:37)
[2024-06-27] MEDS: 0.9% Saline Lock 10 ML Syringe IV ×4 (09:35→22:37)
[2024-06-27] MEDS: Lisinopril 20 MG Tablet PO (13:42)
[2024-06-27] MEDS: hydrALAZINE 20 MG/ML Vial 5 MG IV ×2 (13:51→20:26)
[2024-06-27] MEDS: hydrALAZINE 50 MG Tablet PO ×2 (14:38→20:30)
--- NOTE | 2024-06-27 15:10 | EX.PCM.CON.G ---
HPI Consult Data Date of Consult: 06/27/24 HPI Narrative Reason for Consultation: Acute liver injury HPI Narrative: SILVIA TEJADA, is a 43 y/o F w/ PMHx: Former polysubstance abuse w/ Hepatitis C (no previous treatment), who presents to the [facility] ED on 06/26/2024 with history of right upper quadrant abdominal pain with recent history of dysuria. She said that she was diagnosed with bacterial vaginosis and only took 2 days of antibiotics. She does admit to recently using IV drugs. T97.5, heart rate 97, BP 144/110, respiratory rate 15, 98% on room air, CBC- WBC 5.3, hemoglobin 13.5, platelet 190 without shift CMP - BUN/creatinine 12/0.66, glucose 105, T. bili 4.58, T. bili 3.43, AST/LT 1500/1279, alk phos 433, lipase 62, troponin 11 serum negative, urine noted to be cloudy, dark yellow, specifically 1.015, protein 30, occult blood 150, negative nitrite, leukocyte esterase 25 with urine RBCs 5-10 with 4+ bacteria reported, urine culture pending CT abdomen and pelvis with IV contrast only with status postcholecystectomy with subtle haziness/stranding in the gallbladder fossa, subtle wall thickening in the duodenum, 1.2 cm indeterminate right adrenal nodule. In the ED patient ministered 1 L normal saline, famotidine 20 mg IV x 1, morphine 4 mg IV x 1, Zofran 4 mg IV x 1, Zosyn 3.375 g IV x 1. [facility] Medical History Hepatitis C Drug abuse and dependence Normal stress echocardiogram Wears glasses Thyroid disease Kidney stones Injury of back Migraine headache Injury of head and neck Smoker Hypertension Home Medications ?Medication ?Instructions ?Recorded ?Last Taken ?Type albuterol sulfate 90 mcg/actuation 2 puff inhalation Q4H PRN PRN 05/14/19 Unknown Rx aerosol inhaler Wheezing ##1 ibuprofen 800 mg tablet 800 mg PO Q8H PRN Pain 06/12/22 06/26/22 History lisinopril 20 mg tablet 20 mg PO DAILY 07/05/22 07/10/22 History hydrochlorothiazide 12.5 mg capsule 12.5 mg PO DAILY 01/31/24 Unknown History Allergy/AdvReac Type Severity Reaction Status Date / Time codeine AdvReac Other Verified 06/26/24 18:22 lorazepam (From Ativan) AdvReac Other Verified 06/26/24 18:22 Family History Mother COPD (chronic obstructive pulmonary disease) Father COPD (chronic obstructive pulmonary disease) Heart disease Hypertension CAD (coronary artery disease) Myocardial infarction Surgical History Hx of tubal ligation History of cholecystectomy [place] teeth removed History of endometrial ablation H/O section History of discectomy Social History household members: none Smoking Status: Current every day smoker tobacco type: cigarettes Smoking packs per day: 0.5 Smoking cigarettes per day: 10.0 and e-cigarettes Tobacco: How many years used: 15 alcohol intake: former substance use type: former substance user Date of last use: Prior IVDA, notes clean since 2021. what type of physical activity do you participate in: yoga ROS ROS Narrative Admission Review of Systems: CONSTITUTIONAL: No weight loss, fever, + chills, weakness or fatigue. HEENT: Eyes: No visual loss, blurred vision, double vision or yellow sclerae. Ears, Nose, Throat: No hearing loss, sneezing, congestion, runny nose or sore throat. SKIN: No rash or itching, lesions, wounds. CARDIOVASCULAR: No chest pain, chest pressure or chest discomfort, palpitations, edema, orthopnea, syncopal events. RESPIRATORY: No shortness of breath, cough or sputum, wheezing, hemoptysis. GASTROINTESTINAL: + anorexia, nausea, abdominal pain. No vomiting, diarrhea, melena, BRBPR. GENITOURINARY: No dysuria, frequency, urgency or retention. NEUROLOGICAL: No headache, dizziness, syncope, paralysis, ataxia, numbness or tingling in the extremities, focal weakness, change in bowel or bladder control, seizure. MUSCULOSKELETAL: + muscle, back pain, joint pain or stiffness. HEMATOLOGIC: No anemia, bleeding or bruising. LYMPHATICS: No enlarged nodes. No history of splenectomy. PSYCHIATRIC: No history of depression or anxiety. ENDOCRINOLOGIC: No reports of sweating, cold or heat intolerance. No polyuria or polydipsia. ALLERGIES: No history of asthma, hives, eczema or rhinitis. Constitutional Constitutional: Denies fatigue, fever(s), poor appetite, weight gain or weight loss Gastrointestinal Gastrointestinal: Denies belching, bloating, change in bowel habits, change in stool character, chewing difficulty, coffee ground emesis, constipation, cramping, diarrhea, dyspepsia, dysphagia, early satiety, excessive flatus, fecal incontinence, heartburn, hematemesis, hematochezia, hemorrhoids, loose stools, melena, nausea, odynophagia, rectal bleeding, tenesmus, vomiting or weight changes Lab / Micro Data 06/27/24 05:28 06/27/24 05:28 Labs: Laboratory Results - last 24 hr 06/26/24 18:46: Urine Color DARK YELLOW, Urine Clarity Cloudy, Urine pH 8.0, Ur Specific [place] 1.015, Urine Protein 30 H, Urine Glucose (UA) Normal, Urine Ketones Negative, Urine Occult Blood 150 H, Urine Nitrite Negative, Urine Bilirubin 3 H, Urine Urobilinogen 8 H, Ur Leukocyte Esterase 25 H, Urine RBC 5-10 SEEN, Urine WBC 0-5 SEEN, Ur Squamous Epith Cells 0-5 SEEN, Amorphous Sediment 2+, Urine Bacteria 4+, Urine Mucus 0 SEEN, Urine Opiates Screen NEGATIVE, U Buprenorphine Qual NEGATIVE, Ur Oxycodone Screen NEGATIVE, Urine Methadone Screen NEGATIVE, Urine Fentanyl Screen NEGATIVE, Ur Barbiturates Screen NEGATIVE, Ur Phencyclidine Scrn NEGATIVE, Ur Amphetamines Screen PRESUMPTIVE POSITIVE, U Benzodiazepines Scrn NEGATIVE, Urine Cocaine Screen NEGATIVE, U Cannabinoids Screen PRESUMPTIVE POSITIVE 06/26/24 18:55: WBC 5.3, RBC 4.68, Hgb 13.5, Hct 40.9, MCV 87.4, MCH 28.8, MCHC 33.0, RDW Std Deviation 45.1 H, RDW Coeff of Meli 14.0, Plt Count 192, MPV 9.5, Immature Gran % (Auto) 0.200, Neut % (Auto) 46.7 L, Lymph % (Auto) 36.6, [place] % (Auto) 12.6 H, Eos % (Auto) 2.4, Baso % (Auto) 1.5 H, Absolute Neuts (auto) 2.5, Absolute Lymphs (auto) 1.95, Nucleated RBC % 0, Platelet Estimate ADEQUATE, RBC Morphology NORM C+C, Sodium 138, Potassium 4.1, Chloride 101, Carbon Dioxide 29.0, Anion Gap 8, BUN 12, Creatinine 0.66 L, Estim Creat Clear Calc 114.85, Est GFR (MDRD) Non-Af 110, BUN/Creatinine Ratio 17.8, Glucose 105 H, Calcium 9.0, Total Bilirubin 4.58 H, Direct Bilirubin 3.43 H, AST 1500 H, ALT 1279 H, Alkaline Phosphatase 433 H, Troponin T High Sens 13, Total Protein 7.0, Albumin 3.4 L, Globulin 3.6, Lipase 62, Procalcitonin 0.10, Serum , Qual NEGATIVE 06/26/24 22:36: PT 15.8 H, INR 1.2, APTT 32.4 06/27/24 05:28: WBC 5.7, RBC 4.58, Hgb 13.5, Hct 40.7, MCV 88.9, MCH 29.5, MCHC 33.2, RDW Std Deviation 46.5 H, RDW Coeff of Meli 14.3, Plt Count 195, MPV 10.2, Immature Gran % (Auto) 0.400, Neut % (Auto) 57.5, Lymph % (Auto) 29.9, [place] % (Auto) 9.9, Eos % (Auto) 1.2, Baso % (Auto) 1.1 H, Absolute Neuts (auto) 3.3, Absolute Lymphs (auto) 1.69, Nucleated RBC % 0, Platelet Estimate A, Polychromasia 1+, Sodium 137, Potassium 3.9, Chloride 102, Carbon Dioxide 24.7, Anion Gap 10, BUN 13, Creatinine 0.63 L, Estim Creat Clear Calc 120.20, Est GFR (MDRD) Non-Af 112, BUN/Creatinine Ratio 20.3 H, Glucose 99, Calcium 8.5, Total Bilirubin 5.83 H, Direct Bilirubin 4.51 H, AST 1700 H, ALT 1383 H, Alkaline Phosphatase 398 H, C-React Prot Ext Range < 3.00, Total Protein 6.5, Albumin 3.1 L, Globulin 3.4, TSH 5.870 H, Free T4 1.00 Imaging Radiology Impression Abdomen/Pelvis CT 06/26/24 18:38 IMPRESSION: Status post cholecystectomy with subtle haziness/stranding of the gallbladder fossa, please correlate clinically with recent cholecystectomy. Subtle wall thickening of the duodenum, concerning for duodenitis. 1.2 cm indeterminate right adrenal nodule, recommend MRI of the adrenal glands for further characterization. Reading [facility] Assessment & Plan Assessment/Plan (1) Hyperbilirubinemia: (2) Transaminitis: PLAN: Plan 43 y/o F was admitted with RUQ abdominal pain, nausea without vomiting and fever for 3 days. She has a history of chronic hepatitis C which was untreated and recently used IV drugs. UDS is + for Amphetamines and THC. She also recently used antibiotics for urinary tract infection and 2 days of Flagyl for bacterial vaginosis after being treated for urinary tract infection. She does not know which medicine she took for urinary tract infection but she did know that she took 2 days of Flagyl. She currently has acute liver injury. History and recent drug use make it difficult to exclude coexisting liver injury from toxic drug metabolites.? Differential diagnosis for right upper quadrant pain and acute liver injury would be acute on chronic viral hepatitis, shock or ischemic hepatitis, idiosyncratic drug-induced liver injury, autoimmune hepatitis, Ghanshyam's disease. Her INR is only 1.2 which is a good sign. However her platelet count has dropped to 190. Recommendations: - Check hepatitis C PCR RNA quant - Await acute hepatitis A and B serologies - Check anti-smooth muscle antibody, LDH - Check INR every 8 hours until clinically stable x 3 - Check ammonia level - Ischemic hepatitis N-acetylcysteine protocol - Check copper and ceruloplasmin - Check ferritin, iron, TIBC and transferrin saturation - Check SAMEER plus serum protein electrophoresis - MRCP - Liver biopsy Charges/Coding Visit Charges Inpatient E&M: 00196 Init Hosp L3
[2024-06-27] MEDS: Potassium Chloride 20 MEQ in Dextrose 5%-Water (1000mL Bag) 1,000 ML 75 MEQ IV (15:23)
[2024-06-27 16:36] LABS: LDH 703 U/L (84-246)
[2024-06-27] MEDS: DEXTROSE 5% IV ×2 (17:15→18:19)
[2024-06-27] MEDS: WATER IV ×2 (17:15→18:19)
[2024-06-27] MEDS: ACETYLCYSTEINE IV ×2 (17:15→18:19)
[2024-06-27 17:22] LABS: International Normalized Ratio 1.2; Prothrombin Time (Protime)PT. 15.3 SECONDS (11.7-14.9)
[2024-06-27 17:51] LABS: Ammonia 22.7 umol/L (11-51)
[2024-06-27 17:58] LABS: Reflex Lactate? N
[2024-06-28] VITALS (7 sets, daily range): BP systolic 111–141; BP diastolic 76–98; PULSE 83–109; RESP 18–20; TEMP 36.4–37.3; O2SAT 94–99; BMI 29.2
[2024-06-28 02:04] LABS: International Normalized Ratio 1.2; Prothrombin Time (Protime)PT. 15.5 SECONDS (11.7-14.9)
[2024-06-28] MEDS: HYDROmorphone 0.5 MG/0.5 ML SYRINGE IV ×2 (05:08→11:37)
[2024-06-28] MEDS: proCHLORPERazine 10 MG/2 ML Vial 5 MG IV ×2 (05:08→11:37)
[2024-06-28] MEDS: hydrALAZINE 50 MG Tablet PO ×3 (05:16→21:59)
[2024-06-28] MEDS: Piperacil/Tazobactam 3.375 GM in 0.9% Normal Saline (50mL MB+) 50 ML IV ×3 (05:19→22:00)
--- NOTE | 2024-06-28 06:00 | US_ITS ---
PROCEDURE: ABDOMEN LIMITED 06/28/2024 REASON FOR EXAM: RUQ PAIN, PERIPORTAL EDEMA, ELEVATED LFT, TB DB TECHNIQUE: Real-time ultrasound images. COMPARISON: CT scan on 06/26/2024. FINDINGS: The liver measures 16.9 cm. Well-defined hyperechoic lesion in the left hepatic lobe measuring 1.3???0.9???0.8 cm, probably hemangioma. Well-defined hyperechoic lesion in the right hepatic lobe adjacent to the portal vein measuring 3.7???2???2.9 cm, probably hemangioma. Well-defined hyperechoic lesion in the hepatic dome measuring 4.8???4.8???4.7 cm, probably hemangioma. Nondilated biliary tree. Unremarkable flow in the portal vein. Prior cholecystectomy. Nondilated common bile duct measuring 6 mm. Unremarkable pancreas. Unremarkable right kidney measuring 13.3???5.6???4.9 cm. Normal right renal cortical thickness measuring 2.1 cm. No evidence of hydronephrosis or calculi in the right kidney. US/Abdomen Limited IMPRESSION: 1. Three well-defined hyperechoic liver lesions, probably hemangiomas. 2. Prior cholecystectomy. 3. Nondilated biliary tree. 4. Unremarkable visualized pancreas. 5. Unremarkable right kidney. Reading Location: [place] [id number]
--- NOTE | 2024-06-28 08:09 | PN.HOSP_ITS ---
Reason for Visit Reason for Visit: Diagnoses Other disorders of bilirubin metabolism (06/26/24) Elevation of levels of liver transaminase levels (06/26/24) Subjective Subjective Patient reports being quite tired at the time of exam, status post MRCP but has not gone down for liver biopsy yet, at time of exam denied any abdominal pain send her main complaint is that she just wanted to sleep Objective Data Objective Data Vital Signs: Vital Signs Temp Pulse Resp BP Pulse Ox O2 Del Method 98.7 F 109 H 18 111/76 94 Room Air 06/28/24 02:20 06/28/24 05:16 06/28/24 02:20 06/28/24 05:16 06/28/24 02:20 06/28/24 02:26 Oxygen Delivery Method Room Air Weight: 80.7 kg Body Mass Index (BMI) 29.2 Intake & Output: Intake and Output for Last 24 Hours 06/26/24 06/27/24 06/28/24 23:59 23:59 23:59 Intake Total 1061.67 / 1061.67 1880.83 / 1880.83 1783.04 / 1783.04 Output Total 1500 / 1500 Balance 1061.67 / 1061.67 380.83 / 380.83 1783.04 / 1783.04 Lab / Micro Data 06/28/24 08:22 06/28/24 08:22 Labs: Laboratory Results - last 24 hr 06/27/24 05:28: WBC 5.7, RBC 4.58, Hgb 13.5, Hct 40.7, MCV 88.9, MCH 29.5, MCHC 33.2, RDW Std Deviation 46.5 H, RDW Coeff of Meli 14.3, Plt Count 195, MPV 10.2, Immature Gran % (Auto) 0.400, Neut % (Auto) 57.5, Lymph % (Auto) 29.9, [place] % (Auto) 9.9, Eos % (Auto) 1.2, Baso % (Auto) 1.1 H, Absolute Neuts (auto) 3.3, Absolute Lymphs (auto) 1.69, Nucleated RBC % 0, Platelet Estimate A, Polychromasia 1+, Sodium 137, Potassium 3.9, Chloride 102, Carbon Dioxide 24.7, Anion Gap 10, BUN 13, Creatinine 0.63 L, Estim Creat Clear Calc 120.20, Est GFR (MDRD) Non-Af 112, BUN/Creatinine Ratio 20.3 H, Glucose 99, Calcium 8.5, Total Bilirubin 5.83 H, Direct Bilirubin 4.51 H, AST 1700 H, ALT 1383 H, Alkaline Phosphatase 398 H, Lactate Dehydrogenase 703 H, C-React Prot Ext Range < 3.00, Total Protein 6.5, Albumin 3.1 L, Globulin 3.4, TSH 5.870 H, Free T4 1.00 06/27/24 16:55: PT 15.3 H, INR 1.2, Lactic Acid 2.0, Ammonia 22.7 06/28/24 01:34: PT 15.5 H, INR 1.2 Radiography Diagnostic Testing: Radiology Impression Abdomen Ultrasound 06/28/24 06:00 IMPRESSION: 1. Three well-defined hyperechoic liver lesions, probably hemangiomas. 2. Prior cholecystectomy. 3. Nondilated biliary tree. 4. Unremarkable visualized pancreas. 5. Unremarkable right kidney. Reading Location: [place] [id number] Physical Exam Narrative General: Resting comfortably, would wake up and answer questions HEENT: Atraumatic, normocephalic Eyes: Anicteric, normal conjunctiva, extraocular movements grossly intact Neck: Supple Respiratory: Normal respiratory effort Cardiovascular: Regular rate and rhythm GI: Soft, no rebound, guarding, rigidity, denies any overt tenderness at that time,, nondistended Extremities: No edema Musculoskeletal: Moving all extremities Neuro: No overt focal neurological deficits Skin: No rashes appreciated Psych: Reluctant to wake up and participate in exam that would wake up and answer questions when prompted Assessment & Plan Assessment/Plan (1) Hyperbilirubinemia: (2) Transaminitis: PLAN: Plan #Liver failure with right upper quadrant pain and fever - On presentation patient with total bili of 4.58 and direct bili of 3.43, AST 1500, ALT 1279 and ALP of 433 - CT demonstrated periportal edema - Liver function tests subsequently up trended - Patient has history of cholecystectomy but there is concern that there could be a component of cholangitis given the pain and fever so patient on Zosyn -06/28: Multiple lab tests sent out. Liver biopsy and MRCP ordered by gastroenterology. N-acetylcysteine ordered. Patient does have history of hep C that she reportedly is cleared, patient hepatitis panel pending. MRCP redemonstrated mild nonspecific edema in gallbladder fossa extending into the yuri hepatis and surrounding the proximal duodenum and recommended clinical correlation, did note interval improvement of previous periportal edema. Additionally incompletely characterized hyperintense T2 lesions in the liver with the largest of 4.9 cm. Liver biopsy pending. Discussed with gastroenterology this a.m. # Substance abuse with IV drug use - UDS presumptive positive for amphetamines and cannabinoids - Strongly advised cessation #Hypertension - Patient's lisinopril continued and she was also started on hydralazine #GERD -Continue PPI #Tobacco use -Advise cessation -Nicotine replacement available if desired # Right adrenal nodule - 1.2 cm indeterminate right adrenal nodule seen incidentally on CT scan #DVT ppx: SCDs Geovanna Stauffer MD Time spent in the patient's overall evaluation, decision-making process, review of diagnostic data, adjustment of management, discussion with other providers, nursing and ancillary staff involved in patient's care documentation, 37 Minutes Charges/Coding Visit Charges Inpatient E&M: 41904 Subs Hosp L2
[2024-06-28] MEDS: Pantoprazole Sodium 40 MG Tablet PO (08:14)
[2024-06-28] MEDS: Lisinopril 20 MG Tablet PO (08:15)
[2024-06-28 08:34] LABS: Absolute Lymphocyte Count 2.09 X10^3/uL (0.83-4.51); Absolute Neutrophil Count 5.5 X10^3/uL (2.0-7.7); Basophil# 0.07 X10^3/uL; Basophil% 0.8 % (0-1); Eosinophil# 0.03 X10^3/uL; Eosinophils% 0.3 % (0-5); Hemoglobin 14.9 g/dL (12.0-15.0); Lymphocyte # 2.09 X10^3/ul (0.83-4.51); Lymphocyte % 23.8 % (19-41); Mean Corp Hgb Conc 33.9 g/dL (32-36); Mean Corpuscular Volume 85.6 fL (81-99); Mean Platelet Vol. 9.4 fl (6.2-12.0); Monocyte# 1.01 X10^3/uL; Monocyte% 11.5 % (0-10); NRBC Flagged by Analyzer 0 % (0-5); Neutrophil # 5.54 X10^3/uL (2.7-7.7); Neutrophil % 63.1 % (47-70); POSITIVE MORPHOLOGY YES; Platelet Count 297 K/mm3 (150-450); RBC Distribution Width CV 14.6 % (11.6-14.6); RBC Distribution Width SD 45.4 fl (35.1-43.9); Red Blood Count 5.14 M/mm3 (4.2-5.4); White Blood Count 8.8 K/mm3 (4.4-11.0)
[2024-06-28 08:39] LABS: Differential Indicated SCAN CRITERIA MET
--- NOTE | 2024-06-28 09:00 | MRI_ITS ---
PROCEDURE: MRCP ABDOMEN WITHOUT CONTRAST 06/28/2024 REASON FOR EXAM: ACUTE LIVER FAILURE TECHNIQUE: Multiplanar, multisequence MRI of the upper abdomen without intravenous gadolinium-based contrast. COMPARISON: 06/26/2024 FINDINGS: Two incompletely characterized hyperintense T2 lesions in the right hepatic dome and near the caudate lobe, largest at the dome measuring up to 4.9 cm. Remaining hepatic signal is within normal limits. Mild edema/ascites about the gallbladder fossa extending into the yuri hepatis and also surrounding the 1st and 2nd segments of the duodenum. Gallbladder is surgically absent. No significant biliary ductal dilation. Interval improvement of the previously seen periportal edema. No intrahepatic biliary ductal dilation. Borderline prominence of the proximal common bile duct measuring 6 mm. Normal caliber mid and distal common bile duct without evidence of filling defects. Spleen, pancreas and kidneys are intact. Unchanged small right adrenal nodule. No evidence of bowel obstruction. No abdominal aortic aneurysm or bulky adenopathy. Superficial soft tissues are intact. Lung bases are clear. MRI/MRCP Abdomen without Contrast IMPRESSION: 1. Status post cholecystectomy. No significant biliary ductal dilation or evid ence of choledocholithiasis. 2. Mild nonspecific edema in the gallbladder fossa extending into the yuri hep atis and surrounding the proximal duodenum. Please correlate. 3. Incompletely characterized hyperintense T2 lesions in the liver, largest jamila suring 4.9 cm. Consider postcontrast imaging to better assess. 4. Interval improvement of the previous periportal edema. Reading Location: [place]
[2024-06-28 09:18] LABS: Reactive Lymphocyte 1+
[2024-06-28 09:39] LABS: AST(SGOT) 1385 U/L (<=31); Alanine Aminotransfer ALT/SGPT 1591 U/L (<=34); Albumin, Serum 3.5 g/dL (3.5-5.0); Alkaline Phosphatase 428 U/L (35-104); Anion Gap 12 (5-15); BUN 12 mg/dL (4-19); BUN/Creat Ratio 18.3 RATIO (10-20); Bilirubin, Direct 6.99 mg/dL (0.00-0.30); Calcium,Total 9.4 mg/dL (7.6-11.0); Carbon Dioxide 24.3 mmol/L (21.0-32.0); Chloride 98 mmol/L (98-108); Creatinine, Serum 0.66 mg/dL (0.70-1.20); EST Glomerular Filtration Rate 110 (>60); Estimated Creatinine Clearance 112.97 ml/min (50-250); Globulin 4.1 g/dL (2.2-4.2); Glucose 117 mg/dL (70-99); Potassium 3.4 mmol/L (3.3-5.1); Protein, Total 7.6 g/dL (5.9-8.4); Sodium Level 134 mmol/L (133-145); Total Bilirubin 9.44 mg/dL (0.00-1.30)
--- NOTE | 2024-06-28 10:12 | CASEMGMT ---
LEONEL LOZOYA Assessment: Face to Face with pt for initial transition planning/care coordination assessment. LEONEL LOZOYA introduced self and role at [facility], pt voices understanding and consents to assessment. Pt is A&O x4 and answers all questions appropriately at this time. Pt lying in bed in no distress with MRI present to take pt down. Care providers, pharmacy, and demographics verified/updated. Admitting Dx: RUQ pain Strata Score: 2 PCP:Lindsey Arcos Specialists:Denies Preferred Pharmacy:[facility] Insurance: Self Pay, pt states someone was just in to assist her in reapplying for [employer] Prescription Benefit: no LNOK: Lissy Sweeney dtsusan Living Arrangements: Pt lives with other dtr in a mobile home with 6-7 steps to enter. Pt reports she is I in ADL/IADLs and denies concerns at home. Transportation: Pt drives self and denies concerns with transportation. DME:Denies HHC/SNF: Denies hx of Pt states no concerns with going home at time of dc. Pt states no further concerns/needs. CM to follow. Advised pt to ask CM if any further questions/concerns/needs arise, voices understanding. Pt Goal: Home Plan: Home [place]STAN[place] CM
[2024-06-28] MEDS: 0.9% Saline Lock 10 ML Syringe IV (11:38)
--- NOTE | 2024-06-28 11:48 | CASEMGMT ---
Social Work- introduced self and role; meeting with pt to complete SDOH assessment. Pt lying in bed, boyfriend present; pt agreeable to meet.Pt reports that he was fired last month and currently has no income. Pt lives with 14 year old daughter who is being cared for by her older sister who is over 18 years of age while pt is admitted. Pt states her boyfriend also stays with her. Pt owes $705 in rent. Pt receives HEAP, PIPP, and EBT/food card. Pt reports she plans to try to find another job. Pt provided with numerous resources as outlined on SDOH assessment form. [employer] has met with pt and submitted medicaid re-instatement. Pt reports no other needs at this time. WILLY Saenz
[2024-06-28] MEDS: Ibuprofen 400 MG Tablet PO (16:53)
[2024-06-28 17:02] LABS: Acetaminophen (Tylenol) Level < 5.0 ug/mL (8.0-19.0)
[2024-06-28 17:50] LABS: International Normalized Ratio 1.2; Prothrombin Time (Protime)PT. 15.2 SECONDS (11.7-14.9)
[2024-06-28 18:21] LABS: ALB/GLOB Ratio 0.9 RATIO (0.9-2.4); AST(SGOT) 1115 U/L (<=31); Alanine Aminotransfer ALT/SGPT 1490 U/L (<=34); Albumin, Serum 3.5 g/dL (3.5-5.0); Alkaline Phosphatase 414 U/L (35-104); Anion Gap 14 (5-15); BUN 17 mg/dL (4-19); BUN/Creat Ratio 23.7 RATIO (10-20); Calcium,Total 9.3 mg/dL (7.6-11.0); Carbon Dioxide 22.3 mmol/L (21.0-32.0); Chloride 100 mmol/L (98-108); EST Glomerular Filtration Rate 109 (>60); Estimated Creatinine Clearance 106.51 ml/min (50-250); Glucose 117 mg/dL (70-99); Potassium 3.1 mmol/L (3.3-5.1); Protein, Total 7.5 g/dL (5.9-8.4); Sodium Level 136 mmol/L (133-145); Total Bilirubin 9.13 mg/dL (0.00-1.30)
[2024-06-28] MEDS: Potassium Chloride Oral Tablet 20 MEQ 40 MEQ PO (18:39)
[2024-06-28] MEDS: 0.9% Normal Saline (100mL Bag) 100 ML 15 ML IV (22:00)
[2024-06-29] VITALS (20 sets, daily range): BP systolic 90–177; BP diastolic 60–109; PULSE 74–108; RESP 14–18; TEMP 36.4–37.2; O2SAT 95–99
[2024-06-29] MEDS: HYDROmorphone 0.5 MG/0.5 ML SYRINGE IV ×3 (02:00→20:14)
[2024-06-29] MEDS: proCHLORPERazine 10 MG/2 ML Vial 5 MG IV (02:00)
[2024-06-29] MEDS: hydrALAZINE 50 MG Tablet PO ×3 (05:57→21:51)
[2024-06-29] MEDS: Piperacil/Tazobactam 3.375 GM in 0.9% Normal Saline (50mL MB+) 50 ML IV ×3 (05:58→21:49)
[2024-06-29 07:03] LABS: Absolute Lymphocyte Count 2.76 X10^3/uL (0.83-4.51); Absolute Neutrophil Count 3.5 X10^3/uL (2.0-7.7); Basophil% 1.3 % (0-1); Eosinophil# 0.14 X10^3/uL; Eosinophils% 1.9 % (0-5); Hematocrit 42.4 % (37-47); Hemoglobin 14.5 g/dL (12.0-15.0); Lymphocyte # 2.76 X10^3/ul (0.83-4.51); Lymphocyte % 37.1 % (19-41); Mean Corp Hgb Conc 34.2 g/dL (32-36); Mean Corpuscular Hgb 29.2 pg (27.0-32.0); Mean Corpuscular Volume 85.3 fL (81-99); Mean Platelet Vol. 9.5 fl (6.2-12.0); Monocyte# 0.86 X10^3/uL; Monocyte% 11.6 % (0-10); NRBC Flagged by Analyzer 0 % (0-5); Neutrophil # 3.54 X10^3/uL (2.7-7.7); Neutrophil % 47.6 % (47-70); POSITIVE MORPHOLOGY YES; Platelet Count 301 K/mm3 (150-450); RBC Distribution Width SD 46.5 fl (35.1-43.9); Red Blood Count 4.97 M/mm3 (4.2-5.4); White Blood Count 7.4 K/mm3 (4.4-11.0)
[2024-06-29 07:05] LABS: Differential Indicated SCAN CRITERIA MET
--- NOTE | 2024-06-29 07:25 | PCM.PN.HOSP ---
Reason for Visit Reason for Visit: Diagnoses Other disorders of bilirubin metabolism (06/26/24) Elevation of levels of liver transaminase levels (06/26/24) Subjective Subjective Patient still reporting some right upper quadrant pain some pain after biopsy however feeling better overall, still somewhat tired but is more awake and alert today, reports no bowel movement but she is passing gas, no vomiting Objective Data Objective Data Vital Signs: Vital Signs Temp Pulse Resp BP Pulse Ox O2 Del Method 98.2 F 98 18 118/81 H 98 Room Air 06/29/24 02:48 06/29/24 05:57 06/29/24 02:48 06/29/24 05:57 06/29/24 02:48 06/29/24 02:49 Oxygen Delivery Method Room Air Weight: 80.7 kg Body Mass Index (BMI) 29.2 Intake & Output: Intake and Output for Last 24 Hours 06/27/24 06/28/24 06/29/24 23:59 23:59 23:59 Intake Total 1880.83 / 1880.83 2480.85 / 2480.85 70 / 70 Output Total 1500 / 1500 Balance 380.83 / 380.83 2480.85 / 2480.85 70 / 70 Lab / Micro Data 06/29/24 06:35 06/29/24 06:35 Labs: Laboratory Results - last 24 hr 06/28/24 08:22: WBC 8.8, RBC 5.14, Hgb 14.9, Hct 44.0, MCV 85.6, MCH 29.0, MCHC 33.9, RDW Std Deviation 45.4 H, RDW Coeff of Meli 14.6, Plt Count 297, MPV 9.4, Immature Gran % (Auto) 0.500, Neut % (Auto) 63.1, Lymph % (Auto) 23.8, [place] % (Auto) 11.5 H, Eos % (Auto) 0.3, Baso % (Auto) 0.8, Absolute Neuts (auto) 5.5, Absolute Lymphs (auto) 2.09, Nucleated RBC % 0, Reactive Lymphocytes 1+, Sodium 134 06/28/24 08:22: Sodium Cancelled, Potassium 3.4 06/28/24 08:22: Potassium Cancelled, Chloride 98 06/28/24 08:22: Chloride Cancelled, Carbon Dioxide 24.3 06/28/24 08:22: Carbon Dioxide Cancelled, Anion Gap 12 06/28/24 08:22: Anion Gap Cancelled, BUN 12 06/28/24 08:22: BUN Cancelled, Creatinine 0.66 L 06/28/24 08:22: Creatinine Cancelled, Estim Creat Clear Calc 112.97 06/28/24 08:22: Estim Creat Clear Calc Cancelled, Est GFR (MDRD) Non-Af 110 06/28/24 08:22: Est GFR (MDRD) Non-Af Cancelled, BUN/Creatinine Ratio 18.3 06/28/24 08:22: BUN/Creatinine Ratio Cancelled, Glucose 117 H 06/28/24 08:22: Glucose Cancelled, Calcium 9.4 06/28/24 08:22: Calcium Cancelled, Total Bilirubin 9.44 H 06/28/24 08:22: Total Bilirubin Cancelled, Direct Bilirubin 6.99 H, AST 1385 H 06/28/24 08:22: AST Cancelled, ALT 1591 H 06/28/24 08:22: ALT Cancelled, Alkaline Phosphatase 428 H 06/28/24 08:22: Alkaline Phosphatase Cancelled, Total Protein 7.6 06/28/24 08:22: Total Protein Cancelled, Albumin 3.5 06/28/24 08:22: Albumin Cancelled, Globulin 4.1 06/28/24 08:22: Globulin Cancelled, Albumin/Globulin Ratio Cancelled, MICHI-1 Antibody TNP, SS-A/Ro IgG Antibody TNP, SS-B/La IgG Antibody TNP, Sm (Whitney) Antibody TNP, EXCHANGE TELLER Antibody TNP, Scl-70 Scleroderma Ab TNP, Double Strand DNA Ab TNP, Antichromatin Antibodies TNP, Centromere B Antibody TNP 06/28/24 16:30: Acetaminophen < 5.0 L 06/28/24 17:30: PT 15.2 H, INR 1.2, Sodium 136, Potassium 3.1 L, Chloride 100, Carbon Dioxide 22.3, Anion Gap 14, BUN 17, Creatinine 0.70, Estim Creat Clear Calc 106.51, Est GFR (MDRD) Non-Af 109, BUN/Creatinine Ratio 23.7 H, Glucose 117 H, Calcium 9.3, Total Bilirubin 9.13 H, AST 1115 H, ALT 1490 H, Alkaline Phosphatase 414 H, Total Protein 7.5, Albumin 3.5, Globulin 4.0, Albumin/Globulin Ratio 0.9 06/29/24 06:35: WBC 7.4, RBC 4.97, Hgb 14.5, Hct 42.4, MCV 85.3, MCH 29.2, MCHC 34.2, RDW Std Deviation 46.5 H, RDW Coeff of Meli 15.0 H, Plt Count 301, MPV 9.5, Immature Gran % (Auto) 0.500, Neut % (Auto) 47.6, Lymph % (Auto) 37.1, [place] % (Auto) 11.6 H, Eos % (Auto) 1.9, Baso % (Auto) 1.3 H, Absolute Neuts (auto) 3.5, Absolute Lymphs (auto) 2.76, Nucleated RBC % 0 Micro: Microbiology 06/26/24 18:46 Urine, Clean Catch Urine Culture - Final Culture exhibits no growth. Radiography Diagnostic Testing: Radiology Impression Abdomen Ultrasound 06/28/24 06:00 IMPRESSION: 1. Three well-defined hyperechoic liver lesions, probably hemangiomas. 2. Prior cholecystectomy. 3. Nondilated biliary tree. 4. Unremarkable visualized pancreas. 5. Unremarkable right kidney. Reading Location: [place] [id number] MRCP 06/28/24 09:00 IMPRESSION: 1. Status post cholecystectomy. No significant biliary ductal dilation or evidence of choledocholithiasis. 2. Mild nonspecific edema in the gallbladder fossa extending into the yuri hepatis and surrounding the proximal duodenum. Please correlate. 3. Incompletely characterized hyperintense T2 lesions in the liver, largest measuring 4.9 cm. Consider postcontrast imaging to better assess. 4. Interval improvement of the previous periportal edema. Reading Location: [facility] Physical Exam Narrative General: Alert, oriented, no apparent distress HEENT: Atraumatic, normocephalic Eyes: Anicteric, normal conjunctiva, extraocular movements grossly intact Neck: Supple Respiratory: Clear to auscultation bilaterally, normal respiratory effort Cardiovascular: Regular rate and rhythm GI: Does have some tenderness more so right upper quadrant without guarding or rigidity Extremities: No edema Musculoskeletal: Moving all extremities Neuro: No overt focal neurological deficits Skin: No rashes appreciated Psych: Cooperative Assessment & Plan Assessment/Plan (1) Hyperbilirubinemia: (2) Transaminitis: PLAN: Plan #Liver failure with right upper quadrant pain and fever - On presentation patient with total bili of 4.58 and direct bili of 3.43, AST 1500, ALT 1279 and ALP of 433 - CT demonstrated periportal edema - Liver function tests subsequently up trended - Patient has history of cholecystectomy but there is concern that there could be a component of cholangitis given the pain and fever so patient on Zosyn -06/28: Multiple lab tests sent out. Liver biopsy and MRCP ordered by gastroenterology. N-acetylcysteine ordered. Patient does have history of hep C that she reportedly is cleared, patient hepatitis panel pending. MRCP redemonstrated mild nonspecific edema in gallbladder fossa extending into the yuri hepatis and surrounding the proximal duodenum and recommended clinical correlation, did note interval improvement of previous periportal edema. Additionally incompletely characterized hyperintense T2 lesions in the liver with the largest of 4.9 cm. Liver biopsy pending. Discussed with gastroenterology this a.m. -06/29: Liver biopsy today, liver function tests are downtrending but still significantly elevated, discussed patient with GI, repeat labs in a.m., awaiting liver biopsy results Chronic medical problems and/or problems not being actively addressed during today's encounter: # Substance abuse with IV drug use - UDS presumptive positive for amphetamines and cannabinoids - Strongly advised cessation #Hypertension - Patient's lisinopril continued and she was also started on hydralazine #GERD -Continue PPI #Tobacco use -Advise cessation -Nicotine replacement available if desired # Right adrenal nodule - 1.2 cm indeterminate right adrenal nodule seen incidentally on CT scan #DVT ppx: SCDs Geovanna Stauffer MD Time spent in the patient's overall evaluation, decision-making process, review of diagnostic data, adjustment of management, discussion with other providers, nursing and ancillary staff involved in patient's care documentation, 35 Minutes Charges/Coding Visit Charges Inpatient E&M: 91350 Subs Hosp L2
[2024-06-29 07:27] LABS: Atypical Lymphocyte 1+ %; Differential Comment SCANNED
[2024-06-29 07:33] LABS: Ammonia 33.5 umol/L (11-51)
[2024-06-29 08:09] LABS: GGTP 242 IU/L (0-60)
[2024-06-29 08:19] LABS: AST(SGOT) 840 U/L (<=31); Alanine Aminotransfer ALT/SGPT 1208 U/L (<=34); Albumin, Serum 3.3 g/dL (3.5-5.0); Alkaline Phosphatase 354 U/L (35-104); Anion Gap 13 (5-15); BUN 22 mg/dL (4-19); BUN/Creat Ratio 33.1 RATIO (10-20); Bilirubin, Direct 5.77 mg/dL (0.00-0.30); Calcium,Total 9.1 mg/dL (7.6-11.0); Carbon Dioxide 22.3 mmol/L (21.0-32.0); Chloride 102 mmol/L (98-108); Creatinine, Serum 0.66 mg/dL (0.70-1.20); EST Glomerular Filtration Rate 110 (>60); Estimated Creatinine Clearance 112.97 ml/min (50-250); Globulin 3.7 g/dL (2.2-4.2); Glucose 96 mg/dL (70-99); Potassium 3.5 mmol/L (3.3-5.1); Protein, Total 6.9 g/dL (5.9-8.4); Sodium Level 137 mmol/L (133-145); Total Bilirubin 7.74 mg/dL (0.00-1.30)
[2024-06-29 08:28] LABS: Lactic Acid 1.1 mmol/L (0.0-2.0)
--- NOTE | 2024-06-29 09:00 | CT_ITS ---
PROCEDURE: CT-GUIDED BIOPSY/INJ OR NEEDLE PLACEMENT 06/29/2024 REASON FOR EXAM: ACUTE LIVER FAILURE. RANDOM LIVER BIOPSY. TECHNIQUE: PROCEDURE START TIME: 1021 HOURS. PROCEDURE STOP TIME: 1050 HOURS: Procedure informed consent: The risks and benefits of the procedure were discussed with the patient. Verbal and written consent was obtained. Sedation: 1 mg of Versed. 25 mcg of fentanyl. Routine patient monitoring. PREPARATION Contiguous axial scans of 2.5 mm slice thicknesses were obtained with the localization grid to document an appropriate biopsy site. The site was marked in the usual fashion. Sterile preparation of the skin was performed. Local anesthesia was accomplished with lidocaine 2%. A 17 gauge, 14.6 cm coaxial needle was advanced into the liver at a depth of 5 cm. An 18 gauge CorVorcet core biopsy needle was then utilized to obtain 3 core biopsy specimens. The specimens were preserved in formalin. The specimens were sent to the laboratory for appropriate evaluation and testing. Post biopsy imaging shows no signs of intraparenchymal hemorrhage or hematoma. Bandaging of the puncture site was performed after hemostasis. Patient tolerated the procedure well. RADIATION DOSE SUMMARY: CTDlvol: 49.54 mGy DLP: 757.51 mGycm COMPARISON: CT abdomen dated 06/26/2024. FINDINGS: Successful random core biopsy. CT/Biopsy/Inj or Needle Placement IMPRESSION: Successful CT-guided random percutaneous biopsy of the liver. Patient tolerated the procedure well. Thank you for this referral. Reading Location: [place] [address]
--- NOTE | 2024-06-29 09:25 | NURSING ---
Pt's IV not flushing. Pt to go to biopsy at 0930. This RN contacted radiology nurse, and radiology nurse says that they will access IV in radiology.
[2024-06-29] MEDS: Midazolam 2 MG/2 ML Syringe IV (10:21)
[2024-06-29] MEDS: fentaNYL 100 MCG/2 ML Ampul IV (10:22)
[2024-06-29] MEDS: Lidocaine 2% (20 ml mdv) 20 ML Vial INFILT (10:38)
[2024-06-29] MEDS: Ketorolac 30 MG/ML Syringe IV (11:07)
[2024-06-29] MEDS: Lisinopril 20 MG Tablet PO (11:29)
[2024-06-29] MEDS: Pantoprazole Sodium 40 MG Tablet PO (11:29)
[2024-06-29] MEDS: 0.9% Saline Lock 10 ML Syringe IV (12:37)
[2024-06-29 12:39] LABS: International Normalized Ratio 1.1; Prothrombin Time (Protime)PT. 14.5 SECONDS (11.7-14.9)
[2024-06-29 12:40] LABS: Partial Thromboplast Time 27.9 Seconds (24.1-36.2)
[2024-06-29 14:09] LABS: ANTINUCLEAR ANTIBODIES DIRECT Negative (Negative)
[2024-06-29 14:59] LABS: LDH 374 U/L (84-246)
[2024-06-29 15:08] LABS: Anti-Mitochondrial AB <20.0 Units (0.0-20.0); Anti-Smooth Muscle ABS 22 Units (0-19); CMV Acute Antibody IgM < 30.0 AU/mL (0.0-29.9)
[2024-06-29] MEDS: Ibuprofen 400 MG Tablet PO ×2 (15:42→23:02)
[2024-06-29] MEDS: Senna/Docusate Sodium 1 Tablet 2 TABLET PO ×2 (16:34→23:02)
[2024-06-29] MEDS: oxyCODONE 5 MG Tablet PO ×2 (18:07→23:04)
[2024-06-29 18:08] LABS: HCV Quant. RNA PCR 7430000 IU/mL (.); HCV log 10 6.871 (.)
--- NOTE | 2024-06-29 19:01 | PN_ITS ---
Progress Note Patient started to feel little bit better today. Physical Exam Narrative General: Alert, oriented, no apparent distress HEENT: Atraumatic, normocephalic Eyes: Anicteric, normal conjunctiva, extraocular movements grossly intact Neck: Supple Respiratory: Clear to auscultation bilaterally, normal respiratory effort Cardiovascular: Regular rate and rhythm GI: Does have some tenderness more so right upper quadrant without guarding or rigidity Extremities: No edema Musculoskeletal: Moving all extremities Neuro: No overt focal neurological deficits Skin: No rashes appreciated Psych: Cooperative Assessment & Plan Assessment/Plan (1) Hyperbilirubinemia: (2) Transaminitis: PLAN: Plan 43 y/o F was admitted with RUQ abdominal pain, nausea without vomiting and fever for 3 days. She has a history of chronic hepatitis C which was untreated and recently used IV drugs. UDS is + for Amphetamines and THC. She also recently used antibiotics for urinary tract infection and 2 days of Flagyl for bacterial vaginosis after being treated for urinary tract infection. She does not know which medicine she took for urinary tract infection but she did know that she took 2 days of Flagyl. She currently has acute liver injury. History and recent drug use make it difficult to exclude coexisting liver injury from toxic drug metabolites.? Differential diagnosis for right upper quadrant pain and acute liver injury would be acute on chronic viral hepatitis, shock or ischemic hepatitis, idiosyncratic drug-induced liver injury, autoimmune hepatitis, Ghanshyam's disease. Her INR is only 1.2 which is a good sign. However her platelet count has dropped to 190. Recommendations: - Check hepatitis C PCR RNA quant - Await acute hepatitis A and B serologies - Check anti-smooth muscle antibody, LDH - Check INR every 8 hours until clinically stable x 3 - Check ammonia level - Ischemic hepatitis N-acetylcysteine protocol - Check copper and ceruloplasmin - Check ferritin, iron, TIBC and transferrin saturation - Check SAMEER plus serum protein electrophoresis - MRCP - Liver biopsy 06/29/2024-her hepatitis C PCR RNA was very high at 7 million copies. I do not know the genotype. Also we are awaiting acute hepatitis A and B serologies. If she is hepatitis B positive then we will have to check her for hepatitis D and she may need antiretroviral therapy for hepatitis B and hepatitis C. Her anti- smooth muscle antibody is mildly elevated at 22 with upper limit of normal being 18. This can be seen in patients with hepatitis C so this is likely a false positive but it will depend on her biopsies to see if there is any sign of interface hepatitis. Her INR has remained stable. She did very well with the ischemic colitis N-acetylcysteine protocol. Her protein electrophoresis and ANCA status is pending to see if there is any signs of vasculitis that will cause ischemic hepatitis and contribute to acute liver injury in the setting of methamphetamine usage and a chronic hepatitis C patient. Methamphetamine use can increase the risk of hepatitis C (HCV) infection and?potentially lead to acute reactivation or exacerbation of existing HCV infection, especially in individuals who inject methamphetamine, according to the Centers for Disease Control and Prevention (CDC). Recommendation: - Check patient for HIV as she would need to see infectious disease if she is HIV and hepatitis C positive - Await hepatitis A and B serologies - Await liver biopsy - Fortunately patient is improving but she does have a window of 2 to 3 weeks where her LFTs can increase as well as her synthetic function can decrease with an elevated bilirubin and INR..? - Check genotype of hepatitis C hopefully she. Is not genotype 2 or 3 because that is associated with a mutation that we will cover ribavirin which she may not be a candidate for if there is any sign of cirrhosis , ischemic injury or autoimmune disease affecting the liver Visit Charges Inpatient E&M: 19604 Subs Hosp L3
[2024-06-29 19:20] LABS: HIV Nonreactive (Nonreactive)
[2024-06-30] VITALS (11 sets, daily range): BP systolic 105–133; BP diastolic 54–89; PULSE 77–100; RESP 16–23; TEMP 36.4–37.1; O2SAT 93–99; BMI 30.5
[2024-06-30 05:55] LABS: Hematocrit 34.6 % (37-47); Hemoglobin 11.6 g/dL (12.0-15.0); Mean Corp Hgb Conc 33.5 g/dL (32-36); Mean Corpuscular Hgb 29.1 pg (27.0-32.0); Mean Corpuscular Volume 86.7 fL (81-99); Mean Platelet Vol. 9.4 fl (6.2-12.0); Platelet Count 325 K/mm3 (150-450); RBC Distribution Width CV 15.2 % (11.6-14.6); RBC Distribution Width SD 48.2 fl (35.1-43.9); Red Blood Count 3.99 M/mm3 (4.2-5.4); White Blood Count 7.8 K/mm3 (4.4-11.0)
[2024-06-30] MEDS: hydrALAZINE 50 MG Tablet PO ×2 (06:23→13:45)
[2024-06-30] MEDS: Piperacil/Tazobactam 3.375 GM in 0.9% Normal Saline (50mL MB+) 50 ML IV ×3 (06:24→21:05)
[2024-06-30 07:03] LABS: AST(SGOT) 309 U/L (<=31); Albumin, Serum 3.1 g/dL (3.5-5.0); Alkaline Phosphatase 272 U/L (35-104); Anion Gap 10 (5-15); BUN 28 mg/dL (4-19); BUN/Creat Ratio 36.2 RATIO (10-20); Calcium,Total 8.7 mg/dL (7.6-11.0); Carbon Dioxide 25.4 mmol/L (21.0-32.0); Chloride 99 mmol/L (98-108); Creatinine, Serum 0.77 mg/dL (0.70-1.20); EST Glomerular Filtration Rate 97 (>60); Estimated Creatinine Clearance 98.87 ml/min (50-250); Globulin 3.2 g/dL (2.2-4.2); Glucose 107 mg/dL (70-99); Potassium 3.4 mmol/L (3.3-5.1); Protein, Total 6.3 g/dL (5.9-8.4); Sodium Level 134 mmol/L (133-145); Total Bilirubin 4.74 mg/dL (0.00-1.30)
[2024-06-30] MEDS: Pantoprazole Sodium 40 MG Tablet PO (09:26)
[2024-06-30] MEDS: Lisinopril 20 MG Tablet PO (09:26)
[2024-06-30] MEDS: Senna/Docusate Sodium 1 Tablet 2 TABLET PO (09:30)
[2024-06-30 09:32] LABS: Alanine Aminotransfer ALT/SGPT 779 U/L (<=34)
[2024-06-30] MEDS: oxyCODONE 5 MG Tablet PO ×2 (09:49→21:10)
[2024-06-30] MEDS: HYDROmorphone 0.5 MG/0.5 ML SYRINGE IV ×3 (13:45→23:34)
--- NOTE | 2024-06-30 15:54 | PN.HOSP_ITS ---
Reason for Visit Reason for Visit: Diagnoses Other disorders of bilirubin metabolism (06/26/24) Elevation of levels of liver transaminase levels (06/26/24) Subjective Subjective Patient still is still having some pain on the right side though it is improving slowly, more awake and alert today Objective Data Objective Data Vital Signs: Vital Signs Temp Pulse Resp BP Pulse Ox O2 Del Method 98.4 F 96 16 105/54 L 99 Room Air 06/30/24 11:21 06/30/24 11:21 06/30/24 11:21 06/30/24 11:21 06/30/24 11:21 06/30/24 11:22 Oxygen Delivery Method Room Air Weight: 84.2 kg Body Mass Index (BMI) 30.5 Intake & Output: Intake and Output for Last 24 Hours 06/28/24 06/29/24 06/30/24 23:59 23:59 23:59 Intake Total 2480.85 / 2480.85 270.0 / 270.0 725 / 725 Balance 2480.85 / 2480.85 270.0 / 270.0 725 / 725 Lab / Micro Data 06/30/24 19:47 06/30/24 05:26 Labs: Laboratory Results - last 24 hr 06/26/24 18:55: HCV RNA Quant (PCR) [id number], HCV RNA (PCR) IU log10 6.871, HCV RNA PCR Test Info Comment 06/29/24 08:19: HIV 1&2 Antibody Nonreactive 06/30/24 05:26: WBC 7.8, RBC 3.99 L, Hgb 11.6 L, Hct 34.6 L, MCV 86.7, MCH 29.1, MCHC 33.5, RDW Std Deviation 48.2 H, RDW Coeff of Meli 15.2 H, Plt Count 325, MPV 9.4, Sodium 134, Potassium 3.4, Chloride 99, Carbon Dioxide 25.4, Anion Gap 10, BUN 28 H, Creatinine 0.77, Estim Creat Clear Calc 98.87, Est GFR (MDRD) Non-Af 97, BUN/Creatinine Ratio 36.2 H, Glucose 107 H, Calcium 8.7, Total Bilirubin 4.74 H, AST 309 H, ALT 779 H, Alkaline Phosphatase 272 H, Total Protein 6.3, A lbumin 3.1 L, Globulin 3.2, Albumin/Globulin Ratio 1.0 Micro: Microbiology 06/27/24 08:40 Blood Culture (Wb) - Anticubital Left Blood Culture - Preliminary No growth in 48 hours. 06/27/24 08:30 Blood Culture (Wb) - Anticubital Right Blood Culture - Preliminary No growth in 48 hours. 06/26/24 18:46 Urine, Clean Catch Urine Culture - Final Culture exhibits no growth. Physical Exam Narrative General: Alert, oriented, no apparent distress HEENT: Atraumatic, normocephalic Eyes: Some scleral icterus noted, normal conjunctiva, extraocular movements grossly intact Neck: Supple Respiratory: Clear to auscultation bilaterally, normal respiratory effort Cardiovascular: Regular rate and rhythm GI: Soft, tender to palpation somewhat diffusely without rebound, guarding, rigidity Extremities: No edema Musculoskeletal: Moving all extremities Neuro: No overt focal neurological deficits Skin: No rashes appreciated Psych: Cooperative Assessment & Plan Assessment/Plan (1) Hyperbilirubinemia: (2) Transaminitis: PLAN: Plan #Acute anemia secondary to hemoperitoneum hemoperitoneum - Patient hemodynamically stable and overall still complaining of some general pain not significantly worse than before however noted a several gram drop in hemoglobin so a repeat was ordered which did confirm hemoglobin drop, stat CT obtained which showed small/moderate volume hemoperitoneum, radiologist called and did say that it did not appear to be an active fast bleed but likely was from the liver biopsy and cannot rule out that there is still some oozing or ongoing blood loss, again not in a fast bleed. Reached out to surgeon on-call, given present stability it was recommended to monitor H&H and transfuse as necessary with supportive care and that she could be moved to the ICU if preferred for closer monitoring. Subsequently discussed with GI doctor following and was recommended to reach out to IR physician that did biopsy. Discussed with IR and serial H&H's and transfuse as necessary also advised however given patient's complex nature if patient were to have significant increase in bleeding or did become hemodynamically unstable it was felt she would be better served at a tertiary facility so it was advised to consider transferring patient. Discussed with patient and she is agreeable, called [facility] main line and was triaged to and patient accepted by [facility] in [place] to their ICU. Patient is still hemodynamically stable and repeat hemoglobin after 3 hours only slightly down however given high risk I do agree that it is reasonable. Patient currently pending bed, will be monitored in the meantime #Liver failure with right upper quadrant pain and fever - On presentation patient with total bili of 4.58 and direct bili of 3.43, AST 1500, ALT 1279 and ALP of 433 - CT demonstrated periportal edema - Liver function tests subsequently up trended - Patient has history of cholecystectomy but there is concern that there could be a component of cholangitis given the pain and fever so patient on Zosyn -06/28: Multiple lab tests sent out. Liver biopsy and MRCP ordered by gastroenterology. N-acetylcysteine ordered. Patient does have history of hep C that she reportedly is cleared, patient hepatitis panel pending. MRCP redemonstrated mild nonspecific edema in gallbladder fossa extending into the yuri hepatis and surrounding the proximal duodenum and recommended clinical correlation, did note interval improvement of previous periportal edema. Additionally incompletely characterized hyperintense T2 lesions in the liver with the largest of 4.9 cm. Liver biopsy pending. Discussed with gastroenterology this a.m. -06/29: Liver biopsy today, liver function tests are downtrending but still significantly elevated, discussed patient with GI, repeat labs in a.m., awaiting liver biopsy results -06/30: Patient is hep C positive with high viral load, awaiting genotype, also awaiting biopsy results, clinically patient continues to improve with continued improvement in labs, GI following # Hepatitis C -06/30: HCV RNA quant elevated Chronic medical problems and/or problems not being actively addressed during today's encounter: # Substance abuse with IV drug use - UDS presumptive positive for amphetamines and cannabinoids - Strongly advised cessation #Hypertension - Patient's lisinopril continued and she was also started on hydralazine #GERD -Continue PPI #Tobacco use -Advise cessation -Nicotine replacement available if desired # Right adrenal nodule - 1.2 cm indeterminate right adrenal nodule seen incidentally on CT scan #DVT ppx: SCDs Geovanna Stauffer MD Time spent in the patient's overall evaluation, decision-making process, review of diagnostic data, adjustment of management, discussion with other providers, nursing and ancillary staff involved in patient's care documentation, 88 Minutes Charges/Coding Visit Charges Inpatient E&M: 00876 [facility] Hosp L3
[2024-06-30 16:32] LABS: Hematocrit 32.6 % (37-47); Hemoglobin 10.8 g/dL (12.0-15.0); Mean Corp Hgb Conc 33.1 g/dL (32-36); Mean Corpuscular Hgb 29.4 pg (27.0-32.0); Mean Corpuscular Volume 88.8 fL (81-99); Mean Platelet Vol. 9.5 fl (6.2-12.0); Platelet Count 334 K/mm3 (150-450); RBC Distribution Width CV 15.3 % (11.6-14.6); RBC Distribution Width SD 49.1 fl (35.1-43.9); Red Blood Count 3.67 M/mm3 (4.2-5.4); White Blood Count 7.2 K/mm3 (4.4-11.0)
--- NOTE | 2024-06-30 16:49 | CT_ITS ---
PROCEDURE: ABDOMEN/PELVIS W IV CONT ONLY 06/30/2024 REASON FOR EXAM: LIVER BX YESTERDAY, NOW 4G DROP IN HGB TECHNIQUE: Abdomen and pelvis CT with intravenous contrast. Coronal and sagittal reformats were generated. PATIENT PREPARATION: Per protocol ORAL CONTRAST TYPE: None. CONTRAST: Isovue 370 VOLUME: 93 mL One or more dose reduction techniques were used (e.g., Automated exposure control, adjustment of the mA and/or kV according to patient size, use of iterative reconstruction technique. RADIATION DOSE SUMMARY: CTDlvol: 9.97+ 22.57 mGy DLP: 1211.94 mGycm COMPARISON: 06/28/2024 FINDINGS: Lung bases: Mild atelectasis/scarring.. Liver: Hepatic lesions as seen on recent MRI, up to 5.2 cm in the RIGHT hepatic dome. These demonstrate peripheral discontinuous nodular enhancement. Additional punctate hypodensities which are too small to characterize but likely to reflect cysts or hemangiomas in the absence of known malignancy. Periportal edema, similar to slightly improved from 06/26/2024. Spleen: Unremarkable. Gallbladder: Cholecystectomy. Stranding in the yuri hepatis is similar to 06/26/2024. Pancreas: Unremarkable. Adrenals: 1.3 cm indeterminate RIGHT adrenal nodule. Kidneys: Unremarkable. Bowel: Unremarkable. Appendix not identified.. Lymph nodes: Unremarkable. Vasculature: Trace atherosclerosis.. Peritoneum: Lvogc-pr-jkilrbtv volume largely pelvic and perihepatic hemoperitoneum. Bladder: Underdistended and suboptimally evaluated, grossly unremarkable. Reproductive Organs: Partially obscured by adjacent hemoperitoneum; no definite abnormality. Body Wall: Tiny fat containing umbilical hernia. Trace focal subcutaneous stranding in the subcutaneous tissues overlying the RIGHT hepatic lobe presumably related to recent biopsy. Tiny fat containing inguinal hernias. Bones: Similar L2 compression deformity and degenerative disc disease at L2-L3. CT/Abdomen/Pelvis W IV Cont ONLY IMPRESSION: 1. Small/moderate volume hemoperitoneum. 2. Cholecystectomy with similar stranding in the yuri hepatis compared with . Correlate for recent cholecystectomy or perhaps duodenitis as previously postulated. Slightly improved nonspecific per iportal edema. Finding may be seen hypovolemia or cholangitis, amongst other possible etiologies. Correlate with medical history and LFTs. 3. Redemonstrated hepatic lesions up to 5.2 cm, again very likely to reflect he mangiomas given the CT, MRI, and US appearance. 4. Similar indeterminate 1.3 cm RIGHT adrenal nodule. If there is no history o f malignancy, consider follow-up adrenal protocol CT in 12 months per ACR recommendations. If there is history of known malignanc y, this should be performed more expeditiously. 5. Additional description as above. Attempt to relay the findings in impression #1 are ongoing. Reading Location: [id number]
[2024-06-30] MEDS: 0.9% Saline Lock 10 ML Syringe IV ×2 (18:28→21:08)
--- NOTE | 2024-06-30 20:00 | PN_ITS ---
Progress Note Patient was sent to the ICU due to a drop in hemoglobin and imaging showing a hematoma likely secondary to recent liver biopsy. Patient has been clinically stable. Physical Exam Narrative General: Alert, oriented, no apparent distress HEENT: Atraumatic, normocephalic Eyes: Some scleral icterus noted, normal conjunctiva, extraocular movements grossly intact Neck: Supple Respiratory: Clear to auscultation bilaterally, normal respiratory effort Cardiovascular: Regular rate and rhythm GI: Soft, tender to palpation somewhat diffusely without rebound, guarding, rigidity Extremities: No edema Musculoskeletal: Moving all extremities Neuro: No overt focal neurological deficits Skin: No rashes appreciated Psych: Cooperative Assessment & Plan Assessment/Plan (1) Hyperbilirubinemia: (2) Transaminitis: PLAN: Plan 43 y/o F was admitted with RUQ abdominal pain, nausea without vomiting and fever for 3 days. She has a history of chronic hepatitis C which was untreated and recently used IV drugs. UDS is + for Amphetamines and THC. She also recently used antibiotics for urinary tract infection and 2 days of Flagyl for bacterial vaginosis after being treated for urinary tract infection. She does not know which medicine she took for urinary tract infection but she did know that she took 2 days of Flagyl. She currently has acute liver injury. History and recent drug use make it difficult to exclude coexisting liver injury from toxic drug metabolites.? Differential diagnosis for right upper quadrant pain and acute liver injury wo uld be acute on chronic viral hepatitis, shock or ischemic hepatitis, idiosyncratic drug-induced liver injury, autoimmune hepatitis, Ghanshyam's disease. Her INR is only 1.2 which is a good sign. However her platelet count has dropped to 190. Recommendations: - Check hepatitis C PCR RNA quant - Await acute hepatitis A and B serologies - Check anti-smooth muscle antibody, LDH - Check INR every 8 hours until clinically stable x 3 - Check ammonia level - Ischemic hepatitis N-acetylcysteine protocol - Check copper and ceruloplasmin - Check ferritin, iron, TIBC and transferrin saturation - Check SAMEER plus serum protein electrophoresis - MRCP - Liver biopsy 06/29/2024-her hepatitis C PCR RNA was very high at 7 million copies. I do not know the genotype. Also we are awaiting acute hepatitis A and B serologies. If she is hepatitis B positive then we will have to check her for hepatitis D and she may need antiretroviral therapy for hepatitis B and hepatitis C. Her anti- smooth muscle antibody is mildly elevated at 22 with upper limit of normal being 18. This can be seen in patients with hepatitis C so this is likely a false positive but it will depend on her biopsies to see if there is any sign of interface hepatitis. Her INR has remained stable. She did very well with the ischemic colitis N-acetylcysteine protocol. Her protein electrophoresis and ANCA status is pending to see if there is any signs of vasculitis that will cause ischemic hepatitis and contribute to acute liver injury in the setting of methamphetamine usage and a chronic hepatitis C patient. Methamphetamine use can increase the risk of hepatitis C (HCV) infection and?potentially lead to acute reactivation or exacerbation of existing HCV infection, especially in individuals who inject methamphetamine, according to the Centers for Disease Control and Prevention (CDC). Recommendation: - Check patient for HIV as she would need to see infectious disease if she is HIV and hepatitis C positive - Await hepatitis A and B serologies - Await liver biopsy - Fortunately patient is improving but she does have a window of 2 to 3 weeks where her LFTs can increase as well as her synthetic function can decrease with an elevated bilirubin and INR..? - Check genotype of hepatitis C hopefully she. Is not genotype 2 or 3 because that is associated with a mutation that we will cover ribavirin which she may not be a candidate for if there is any sign of cirrhosis , ischemic injury or autoimmune disease affecting the liver 06/30/2024-her genotype for hepatitis C and her hepatitis A and hepatitis B serologies are still pending. Her HIV 1 and 2 are negative. Her LFTs continue to improve. Her INR and platelet count are normal. Case was discussed with general surgery and IR who performed a liver biopsy. At this time she is clinically stable. She does not seem to have any active bleeding from hematoma site at this time. However she decompensates she will likely need chemoembolization and angiography. Continue to monitor CBC Visit Charges Inpatient E&M: 21650 Subs Hosp L3
[2024-06-30 20:08] LABS: Hematocrit 31.3 % (37-47); Hemoglobin 10.4 g/dL (12.0-15.0); Mean Corp Hgb Conc 33.2 g/dL (32-36); Mean Corpuscular Hgb 29.1 pg (27.0-32.0); Mean Corpuscular Volume 87.7 fL (81-99); Mean Platelet Vol. 9.3 fl (6.2-12.0); Platelet Count 335 K/mm3 (150-450); RBC Distribution Width CV 15.2 % (11.6-14.6); RBC Distribution Width SD 48.7 fl (35.1-43.9); Red Blood Count 3.57 M/mm3 (4.2-5.4); White Blood Count 7.4 K/mm3 (4.4-11.0)
[2024-06-30 22:07] LABS: HCV log 10 6.903 (.); HEPATITIS B SURFACE AG Negative (Negative); Hep C Antibodies Reactive (Non Reactive); Hepatitis A IgM Antibody Negative (Negative); Hepatitis B Core AB IgM Negative (Negative); Hepatitis C Quant 7990000 IU/mL (.)
[2024-07-01] VITALS (9 sets, daily range): BP systolic 106–127; BP diastolic 50–85; PULSE 76–105; RESP 14–18; TEMP 36.7; O2SAT 92–95
[2024-07-01 00:15] LABS: Hematocrit 30.5 % (37-47); Hemoglobin 10.1 g/dL (12.0-15.0); Mean Corp Hgb Conc 33.1 g/dL (32-36); Mean Corpuscular Hgb 29.4 pg (27.0-32.0); Mean Corpuscular Volume 88.7 fL (81-99); Mean Platelet Vol. 9.1 fl (6.2-12.0); Platelet Count 323 K/mm3 (150-450); RBC Distribution Width CV 15.3 % (11.6-14.6); RBC Distribution Width SD 49.3 fl (35.1-43.9); Red Blood Count 3.44 M/mm3 (4.2-5.4); White Blood Count 7.7 K/mm3 (4.4-11.0)
[2024-07-01 04:24] LABS: Hematocrit 30.3 % (37-47); Hemoglobin 10.1 g/dL (12.0-15.0); Mean Corp Hgb Conc 33.3 g/dL (32-36); Mean Corpuscular Hgb 29.3 pg (27.0-32.0); Mean Corpuscular Volume 87.8 fL (81-99); Mean Platelet Vol. 9.1 fl (6.2-12.0); Platelet Count 329 K/mm3 (150-450); RBC Distribution Width CV 15.3 % (11.6-14.6); RBC Distribution Width SD 49.1 fl (35.1-43.9); Red Blood Count 3.45 M/mm3 (4.2-5.4); White Blood Count 6.9 K/mm3 (4.4-11.0)
[2024-07-01 05:12] LABS: AST(SGOT) 159 U/L (<=31); Alanine Aminotransfer ALT/SGPT 518 U/L (<=34); Alkaline Phosphatase 225 U/L (35-104); Anion Gap 9 (5-15); BUN 22 mg/dL (4-19); Calcium,Total 8.7 mg/dL (7.6-11.0); Chloride 101 mmol/L (98-108); Creatinine, Serum 0.71 mg/dL (0.70-1.20); EST Glomerular Filtration Rate 107 (>60); Globulin 3.1 g/dL (2.2-4.2); Glucose 98 mg/dL (70-99); Potassium 3.7 mmol/L (3.3-5.1); Protein, Total 6.2 g/dL (5.9-8.4); Sodium Level 136 mmol/L (133-145); Total Bilirubin 2.98 mg/dL (0.00-1.30)
[2024-07-01] MEDS: Piperacil/Tazobactam 3.375 GM in 0.9% Normal Saline (50mL MB+) 50 ML IV (05:23)
[2024-07-01] MEDS: HYDROmorphone 0.5 MG/0.5 ML SYRINGE IV (05:24)
[2024-07-01 07:07] LABS: Alpha-1-Globulins 0.3 g/dL (0.0-0.4); Alpha-2-Globulins 0.7 g/dL (0.4-1.0); Copper, Serum or Plasma 153 ug/dL (80-158); EBV Acute VCA IgM < 36.0 U/mL (0.0-35.9); EBV Nuclear Antigen IgG > 600.0 U/mL (0.0-17.9); EBV-VCA IgG > 600.0 U/mL (0.0-17.9); Gamma Globulin 2.2 g/dL (0.4-1.8); Immunoglobulin A 236 mg/dL (87-352); Immunoglobulin G 2223 mg/dL (586-1602); Immunoglobulin M 257 mg/dL (26-217); PROEL- TOTAL PROTEIN 7.2 g/dL (6.0-8.5)
[2024-07-01 14:39] LABS: Pathology Sent to OSU SEE PATHOLOGY REPORT
--- NOTE | 2024-07-01 16:20 | PCM.DC.SUM ---
Providers Date of Admission: 06/26/24 Date of Discharge: 07/01/24 Primary Care Physician: NAI Edmondson Consultations 06/27/24 12:01 Consult: Gastroenterology Routine Consulting Provider: [facility] Reason for Consult: Acute liver injury, obstructive jaundice EMERGENT Consult: No Notified: Yes Date Notified: 06/27/24 Time Notified: 12:02 Method of Notification: Verbal 06/30/24 18:31 Consult: General Surgery Routine Consulting Provider: Steve Manning Reason for Consult: hemoperitoneum EMERGENT Consult: No Notified: Yes Date Notified: 06/30/24 Time Notified: 18:32 Method of Notification: Verbal Reason For Visit: RUQ PAIN Diagnosis Discharge Diagnosis (1) Hyperbilirubinemia: Status: Acute Code(s): E80.6 - Other disorders of bilirubin metabolism (2) Transaminitis: Status: Acute Code(s): R74.01 - Elevation of levels of liver transaminase levels (3) Liver failure: Status: Acute Code(s): K72.90 - Hepatic failure, unspecified without coma (4) Hepatitis C: Status: Acute Code(s): B19.20 - Unspecified viral hepatitis C without hepatic coma (5) Drug abuse and dependence: Status: Acute Code(s): F19.20 - Other psychoactive substance dependence, uncomplicated (6) Hypertension: Status: Chronic Code(s): I10 - Essential (primary) hypertension (7) Hemoperitoneum: Status: Acute Code(s): K66.1 - Hemoperitoneum Plan #Acute anemia secondary to hemoperitoneum #Liver failure with right upper quadrant pain and fever # Hepatitis C with high viral load # Substance abuse with IV drug use #Hypertension #GERD #Tobacco use # Right adrenal nodule Medications at Discharge Home Medications albuterol sulfate 90 mcg/actuation aerosol inhaler 2 puff inhalation Q4H PRN PRN Wheezing ##1 05/14/19 ibuprofen 800 mg tablet 800 mg PO Q8H PRN Pain 06/12/22 lisinopril 20 mg tablet 20 mg PO DAILY 07/05/22 hydrochlorothiazide 12.5 mg capsule 12.5 mg PO DAILY 01/31/24 Hospital Course Procedures - (Liver biopsy 06/29/2024) Summary of Care Provided Minutes Spent on Discharge: 90 Hospital Course: 43-year-old female with history of IV drug use with recent relapse, previous hepatitis C infection of unclear status, hypertension presented [facility] ED 06/26/2024 due to right upper quadrant pain and fever she was found to have elevated bilirubin and liver function tests and hospitalist contacted for admission for further workup and GI consultation. Patient's initial total bili was 4.58 with a direct bilirubin of 3.43, AST 1500, ALT 1200, alk phos 433, GI consulted and broad workup obtained. Patient put on an acetyl system protocol and antibiotics. Her total bili peaked at 9.44 with a direct bili 6.99, AST 1300, ALT 1591, alk phos 428 on 06/28/2024. Liver biopsy ordered for better characterization and management and this was completed on 06/29/2024. Patient also had hepatitis C viral loads come back elevated. Patient tolerated procedure well and the next morning was vitally stable and still reported some right sided/general pain which she said was similar to how it had been with no drastic changes however her labs revealed a hemoglobin of 11.6 with the previous day hemoglobin being 14.5. Repeat hemoglobin obtained for confirmation and it was 10.8. Stat CT of the abdomen pelvis with contrast showed small/moderate volume hemoperitoneum. Discussed with radiologist who read the report and they reported there was no brisk active bleeding appreciated however there was hemoperitoneum suspected to be from liver biopsy site. Discussed with surgery who recommended interim close monitoring with serial H&H's and transfuse as necessary. Discussed with GI physician who recommended I discussed with the interventional radiologist who did the biopsy for additional recommendations. Did discuss with this physician, ultimately was decided that while patient is presently stable and area will likely tamponade and not require any intervention that there is always a possibility that patient could decompensate and would be better served at a larger institution for monitoring and intervention if necessary. Discussed this with the patient and she is agreeable, called the [facility] transfer line and advised that patient can go to whichever [facility] facility would be agreeable, was triaged to [facility] ICU team, spoke with team and patient was accepted for transfer. Patient's hemoglobin remained stable at 10.1 while awaiting transfer and patient was vitally stable, patient transferred to [facility] for further close monitoring, presently in stable condition Weight / BMI Weight Weight: 82.9 kg Body Mass Index (BMI) 30.0 ABG / Lab / Microbiology Data 07/01/24 04:06 07/01/24 04:06 Laboratory: Laboratory Results - last 24 hr 06/26/24 20:51: Hepatitis A IgM Ab Negative, Hep Bs Antigen Negative, Hep B Core IgM Ab Negative, Hepatitis C Ab (EIA) Reactive H, HCV Quantitation [id number], HCV RNA PCR Test Info Comment, HCV log10 Confirmation 6.903, Hepatitis C Virus Note Comment 06/27/24 16:55: Total Protein (PEP) 7.2, Globulin 4.2 H, Ceruloplasmin 41.0 H, Serum Copper 153, IgG 2223 H, IgA 236, IgM 257 H, Immunofixation Screen Comment, Albumin (SAMEER) 3.0, Albumin/Globulin (SAMEER) 0.8, Nvbjk-8-Axmzqpoji SAMEER 0.3, Llmlx-9-Cbmbkcgvv SAMEER 0.7, Beta-Globulins (SAMEER) 1.0, Gamma Globulins (SAMEER) 2.2 H, SAMEER M-Cayden Not Observed, SAMEER Comments Comment, EBV Capsid Ag IgG Ab > 600.0 H, EBV Capsid Ag IgM Ab < 36.0, EBV Nuclear Ag IgG Ab > 600.0 H, EBV Antibody Interp Comment 06/30/24 16:15: WBC 7.2, RBC 3.67 L, Hgb 10.8 L, Hct 32.6 L, MCV 88.8, MCH 29.4, MCHC 33.1, RDW Std Deviation 49.1 H, RDW Coeff of Meli 15.3 H, Plt Count 334, MPV 9.5 06/30/24 19:47: WBC 7.4, RBC 3.57 L, Hgb 10.4 L, Hct 31.3 L, MCV 87.7, MCH 29.1, MCHC 33.2, RDW Std Deviation 48.7 H, RDW Coeff of Meli 15.2 H, Plt Count 335, MPV 9.3, Blood Type A POSITIVE, Antibody Screen NEGATIVE, Crossmatch See Detail 06/30/24 23:58: WBC 7.7, RBC 3.44 L, Hgb 10.1 L, Hct 30.5 L, MCV 88.7, MCH 29.4, MCHC 33.1, RDW Std Deviation 49.3 H, RDW Coeff of Meli 15.3 H, Plt Count 323, MPV 9.1 07/01/24 04:06: WBC 6.9, RBC 3.45 L, Hgb 10.1 L, Hct 30.3 L, MCV 87.8, MCH 29.3, MCHC 33.3, RDW Std Deviation 49.1 H, RDW Coeff of Meli 15.3 H, Plt Count 329, MPV 9.1, Sodium 136, Potassium 3.7, Chloride 101, Carbon Dioxide 27.0, Anion Gap 9, BUN 22 H, Creatinine 0.71, Estim Creat Clear Calc 106.40, Est GFR (MDRD) Non-Af 107, BUN/Creatinine Ratio 31.0 H, Glucose 98, Calcium 8.7, Total Bilirubin 2.98 H, AST 159 H, ALT 518 H, Alkaline Phosphatase 225 H, Total Protein 6.2, Albumin 3.0 L, Globulin 3.1, Albumin/Globulin Ratio 1.0 Microbiology: Microbiology 06/27/24 08:40 Blood Culture (Wb) - Anticubital Left Blood Culture - Preliminary No growth in 48 hours. 06/27/24 08:30 Blood Culture (Wb) - Anticubital Right Blood Culture - Preliminary No growth in 48 hours. 06/26/24 18:46 Urine, Clean Catch Urine Culture - Final Culture exhibits no growth. Radiography Diagnostic Testing: Radiology Impression Abdomen/Pelvis CT 06/30/24 16:49 IMPRESSION: 1. Small/moderate volume hemoperitoneum. 2. Cholecystectomy with similar stranding in the yuri hepatis compared with 06/26/2024. Correlate for recent cholecystectomy or perhaps duodenitis as previously postulated. Slightly improved nonspecific periportal edema. Finding may be seen hypovolemia or cholangitis, amongst other possible etiologies. Correlate with medical history and LFTs. 3. Redemonstrated hepatic lesions up to 5.2 cm, again very likely to reflect hemangiomas given the CT, MRI, and US appearance. 4. Similar indeterminate 1.3 cm RIGHT adrenal nodule. If there is no history of malignancy, consider follow-up adrenal protocol CT in 12 months per ACR recommendations. If there is history of known malignancy, this should be performed more expeditiously. 5. Additional description as above. Attempt to relay the findings in impression #1 are ongoing. Reading Location: [id number] D/C Instructions DC O2, CPAP, BIPAP Needs Home O2 Discharge instructions: No Meaningful Use Info Meaningful Use Meaningful Use Diagnoses (Choose all that apply): None applicable Ischemic Stroke Statin Dosing Therapy Reference: STATIN DOSE THERAPY REFERENCE: * Patients > 75 years receive moderate or high dose statin therapy. * Patients 75 years or YOUNGER should receive HIGH intensity statin dose unless contraindicated. You will be required to document reason for non-treatment if statin daily dose does not meet guidelines. HIGH DOSE STATIN THERAPY DAILY Atorvastatin > than or = to 40 mg Rosuvastatin > than or = to 20 mg Amlodipine + Atorvastatin > than or = to 2.5/40 mg Ezetimibe + Simvastatin 10/80 mg Simvastatin 80mg Discharge Plan Admission Admit Date/Time: 06/26/24 21:43 Attending Provider: Geovanna Stauffer Primary Care Provider: Lindsey Arcos NP Consulting Providers: Sushma Garay; Jr Blair; Steve Manning Instructions Patient Instructions: CHANDANA RN Biopsy Liver Dc, CHANDANA RN Procedural Sedation Discharge Orders/Prescriptions Prescriptions: No Action albuterol sulfate 1 INHALER inhaler 2 puff inhalation Q4H PRN PRN (Reason: Wheezing) Qty: 1 0RF ibuprofen 800 mg Tablet 800 mg PO Q8H PRN (Reason: Pain) lisinopril 20 mg Tablet 20 mg PO DAILY hydrochlorothiazide 12.5 mg capsule 12.5 mg PO DAILY Referrals / Follow Up: Lindsey Arcos DESIGN MANAGER, DESIGN MANAGER-C [Primary Care Provider] - Disposition Disposition (needs filled in before D/C Order can be placed): [facility]
[2024-07-02 05:07] LABS: HIV-1 RNA by PCR, Quant. < 20 copies/mL (.)
[2024-07-02 23:07] LABS: Hepatitis C Genotype 1a (.)
== END 2024-07-01 08:12 | disposition short-term general hospital (02) | DRG 441 ==
LOC: ED 19:01 → MS3 21:54 → ICU 07-01 13:48
PROVIDERS: Internal Medicine; Internal Medicine Gastroenterology; Admitting Provider Family Medicine; Emergency Provider Surgery; PCP Nurse Practitioner; Visit Provider Internal Medicine
DX: K72.90 Hepatic failure, unspecified without coma (principal); K66.1 Hemoperitoneum; F19.20 Other psychoactive substance dependence, uncomplicated; N39.0 Urinary tract infection, site not specified; E27.8 Other specified disorders of adrenal gland; K71.9 Toxic liver disease, unspecified; E03.9 Hypothyroidism, unspecified; I10 Essential (primary) hypertension; B19.20 Unspecified viral hepatitis C without hepatic coma; D64.9 Anemia, unspecified; E66.9 Obesity, unspecified; E80.6 Other disorders of bilirubin metabolism; F17.210 Nicotine dependence, cigarettes, uncomplicated; K21.9 Gastro-esophageal reflux disease without esophagitis; R74.01 Elevation of levels of liver transaminase levels; N76.0 Acute vaginitis; D18.03 Hemangioma of intra-abdominal structures; Z90.49 Acquired absence of other specified parts of digestive tract; Z68.29 Body mass index [BMI] 29.0-29.9, adult
CPT/HCPCS: 36415; 74177; 74181; 76705; 77012; 80048; 80053; 80074; 80076; 80143; 80307; 81001; 82140; 82390; 82525; 82784; 82977; 83516; 83605; 83615; 83690; 84145; 84165; 84439; 84443; 84484; 84703; 85025; 85027; 85610; 85730; 86038; 86140; 86334; 86645; 86664; 86665; 86703; 86850; 86900; 86901; 87040; 87086; 87522; 87536; 87902; 94668; 99156; 99284; 99406; Q9967; A4216; J2405